=== PATIENT | female | born 1985 | race Caucasian/White ===

== ENCOUNTER → 2020-03-12 14:04 | Outpatient (CLI) | payer OTHER, MEDICAID, SELFPAY ==
[2020-03-12 14:33] LABS: Add Manual Diff / Slide Review NO; Basophils Absolute Auto 0 /uL (0-100); Basophils Percent Auto 0.5 % (0-2); Eosinophils Absolute Auto 200 /uL (0-450); Hematocrit 36.1 % (36-46); Hemoglobin 11.5 g/dL (12.0-16.0); Lymphocytes Absolute Auto 1900 /uL (1100-4500); Lymphocytes Percent Auto 23.1 % (25-40); Mean Corpuscular Hemoglobin 24.2 PG (26-34); Mean Corpuscular Volume 75.6 fL (80-100); Monocytes Absolute Auto 900 /uL (0-900); Monocytes Percent Auto 10.6 % (3-14); Neutrophils Absolute Auto 5200 /uL (1500-7000); Neutrophils Percent Auto 63.8 % (50-75); Platelet Count 253 X10^3/uL (150-400); Red Blood Cell Count 4.78 X10^6/uL (4.0-5.2); White Blood Cell Count 8.1 X10^3/uL (4.5-11.0)
[2020-03-12 15:26] LABS: Appearance Urine UA CLEAR; Bilirubin Urine UA NEGATIVE (NEGATIVE); Color Urine UA YELLOW; Glucose Urine UA TRACE g/dL (Negative); Ketones Urine UA NEGATIVE (NEGATIVE); Leukocyte Esterase Urine UA TRACE (NEGATIVE); Nitrite Urine UA NEGATIVE (Negative); Occult Blood Urine UA NEGATIVE (Negative); Protein Urine UA NEGATIVE (Negative)
[2020-03-12 15:51] LABS: pH Urine UA 7.5 (4.5-8.0)
[2020-03-12 15:52] LABS: RBC Urine None Seen (0-5/HPF)
[2020-03-12 15:53] LABS: Amorphous Sediment Urine 1+; Bacteria Urine Many (>30); Squamous Epithelial Cell Urine 5-10 /HPF (0-5/HPF); WBC Urine 1-5/HPF (0-5/HPF)
[2020-03-13 06:08] LABS: RPR Screen Non Reactive (Non Reactive)
[2020-03-13 15:48] LABS: Varicella IgG Antibody 576 index (Immune >165)
[2020-03-13 16:38] LABS: Hepatitis B Surface Antigen NEGATIVE s/c (NEGATIVE); Rubella Antibody IgG 67.1 IU/mL (>15)
[2020-03-13 16:55] LABS: HIV 1 & 2 Ab/Ag 4th Gen Combo NEGATIVE (NEGATIVE); Hep C Virus Ab w/Reflex Quant NEGATIVE s/c (NEGATIVE)
== END ==
PROVIDERS: PCP Family Medicine; Referring Provider Specialist; Visit Provider Specialist
DX: Z34.01 Encounter for supervision of normal first pregnancy, first trimester (principal)
CPT/HCPCS: 80055; 81003; 81015; 86787; 86803; 86850; 86900; 86901; 87086; 87389; 87491; 87591

== ENCOUNTER → 2020-03-27 14:50 | Outpatient (CLI) | payer OTHER, MEDICAID, SELFPAY | PROVIDERS: PCP Family Medicine; Referring Provider Specialist; Visit Provider Specialist | DX: O09.521 Supervision of elderly multigravida, first trimester (principal); Z3A.10 10 weeks gestation of pregnancy | CPT/HCPCS: 36415; 81420 ==

== ENCOUNTER → 2020-04-23 15:03 | Oncology outpatient (ONC) | payer OTHER, MEDICAID, SELFPAY ==
[2020-04-23 15:37] VITALS: BP 96/65; PULSE 73; RESP 16; TEMP 37; O2SAT 100
[2020-04-23] MEDS: LACTATED RINGERS 1,000 ML 1000 ML IV (15:44)
[2020-04-23] MEDS: ONDANSETRON 4 MG/2 ML INJ IV (15:45)
== END ==
LOC: ONC 15:04
PROVIDERS: PCP Family Medicine; Referring Provider Specialist; Visit Provider Specialist
DX: O21.0 Mild hyperemesis gravidarum (principal); O09.521 Supervision of elderly multigravida, first trimester
CPT/HCPCS: 96361; 96374; J2405

== ENCOUNTER → 2020-05-16 14:27 | Outpatient (CLI) | payer OTHER, MEDICAID, SELFPAY ==
[2020-05-16 16:06] LABS: HEMOLYSIS < 15 (0-50); Iron 82 ug/dL (37-170)
[2020-05-16 16:14] LABS: Transferrin 460 mg/dL (206-381)
[2020-05-16 16:20] LABS: Percent Iron Saturation 15 % (15-50); Total Iron Binding Capacity 539 ug/dL (265-497)
[2020-05-19 20:41] LABS: AFP, Serum 40.1 ng/mL (.); Calc Gestational Age Ultrasound (.); Estriol, Free 1.76 ng/mL (.); Inhibin A, Dimeric 122.64 pg/mL (.); Inhibin A, MoM 0.83 (.); Maternal Ethnicity Caucasian (.); Maternal Weight 175 lbs (.); Number of Fetuses No (.); OSBR Risk 1 IN 8933 (.); Results Report (.); Test Results *Screen Negative* (.); hCG, MoM 0.71 (.); hCG, Serum 19739 mIU/mL (.)
== END ==
PROVIDERS: PCP Family Medicine; Referring Provider Specialist; Visit Provider Specialist
DX: Z34.02 Encounter for supervision of normal first pregnancy, second trimester (principal); D64.9 Anemia, unspecified; Z3A.17 17 weeks gestation of pregnancy
CPT/HCPCS: 36415; 82105; 82677; 83540; 83550; 84702; 86336

== ENCOUNTER → 2020-06-03 10:37 | Outpatient (CLI) | payer OTHER, MEDICAID, SELFPAY ==
--- NOTE | 2020-06-03 10:38 | DI.US.S_ITS ---
PROCEDURE: US OB >= 14 WEEKS FETUS INDICATIONS: 20 week US OUTSIDE/PRIOR DATING DATA: Last menstrual period (LMP): January 15, 2020. LMP-based estimated date of delivery (MARLENE): October 21, 2020 . First dating scan (date and location): March 12, 2020 . Estimated date of delivery (MARLENE) from first dating scan: October 16, 2020 . TECHNIQUE: Real-time scanning was performed of the fetus, with image documentation and biometric measurements. Endovaginal scanning: Not performed COMPARISON: [facility], US, US OB >= 14 WEEKS FETUS, 05/16/2020, 14:16. FINDINGS: General: A single living intrauterine gestation is present. Presentation: Cephalic. Placenta: Placental position is posterior , without previa. Amniotic fluid index: 12.2 cm, normal range is 5-24 cm. Largest vertical pocket measured 3.6 cm. heart rate: 145 beats per minute. Maternal cervical canal: 5.1 cm long. Normal lower limit is 2.5 cm. biometrics: Biparietal diameter: 4.96 cm, correlating with 21 weeks and 0 days Head circumference: 18.2 cm, correlating with 20 weeks and 4 days Abdominal circumference: 15.5 cm, correlating with 20 weeks and 5 days Femur length: 3.92 cm, correlating with 22 weeks and 4 days Estimated gestational age from initial scan: 20 weeks and 5 days Composite gestational age from present scan: 21 weeks and 2 days Estimated weight and percentile: 426 g which correlates with the 84th percentile based off gestational age Measurement variability for biometric dating: +/- 7 days from 14 weeks to 15 weeks 6 days gestation, +/- 10 days from 16 weeks to 21 weeks 6 days gestation, +/- 2 weeks from 22 weeks to 27 weeks 6 days gestation, +/- 3 weeks for 28 weeks gestation or later. weight reference: 4500 g or EFW >90/95% is considered macrosomia or large for gestational age. EFW <10% is small for gestational age. EFW 5% or less is considered intra-uterine growth restriction. Anatomic survey: Neuro: Ventricles are non-dilated at less than 10 mm. Cisterna magna is normal at 3-11 mm. Cerebellum is normal in size and morphology. Nuchal skin fold: Normal at less than 6 mm between 14-21 weeks gestational age. Face: Nose and lips, facial profile are normal. Spine: No evidence for spina bifida. Heart: 4-chambered heart is present, with normal ventricular outflow tracts. Diaphragm: Diaphragm is intact. Stomach: Left-sided stomach is present. Kidneys: No hydronephrosis. Normal is less than 5 mm in 2nd trimester, less than 7 mm in 3rd trimester. Cord: 3-vessel cord has orthotopic insertion. Bladder: Normal in size. Extremities: All 4 extremities identified. IMPRESSION: 1. Single living intrauterine gestation with an estimated sonographic gestational age of approximately 21 weeks and 2 days. Estimated weight measured 426 g which [address] the fetus within the 84th percentile based off gestational age. 2. Unremarkable second-trimester anatomic screening survey. Dictated by: Kevin Hunt M.D. on 06/03/2020 at 17:52 Approved by: Kevin Hunt M.D. on 06/03/2020 at 17:56
== END ==
PROVIDERS: PCP Family Medicine; Referring Provider Specialist; Visit Provider Specialist
DX: Z34.02 Encounter for supervision of normal first pregnancy, second trimester (principal); Z3A.20 20 weeks gestation of pregnancy
CPT/HCPCS: 76811

== ENCOUNTER → 2020-07-03 12:29 | Outpatient (CLI) | payer OTHER, MEDICAID, SELFPAY ==
[2020-07-03 16:28] LABS: Urine N gonorrhoeae NOT DETECTED
[2020-07-03 16:30] LABS: Urine Chlamydia NOT DETECTED
== END ==
PROVIDERS: PCP Family Medicine; Visit Provider Specialist
DX: Z34.02 Encounter for supervision of normal first pregnancy, second trimester (principal); E03.9 Hypothyroidism, unspecified
CPT/HCPCS: 87491; 87591

== ENCOUNTER → 2020-07-28 13:43 | Outpatient (CLI) | payer OTHER, MEDICAID, SELFPAY ==
[2020-07-28 15:23] LABS: Hematocrit 34.7 % (36-46); Hemoglobin 11.4 g/dL (12.0-16.0)
[2020-07-28 15:34] LABS: GTT (PREG) 1 Hour PP 50gm Dose 181 mg/dL (76-139)
[2020-07-28 16:22] LABS: Free T4, Direct Thyroxine 1.07 ng/dL (0.78-2.19)
[2020-07-28 19:34] LABS: Thyroid Stimulating Hormone 0.234 uIU/mL (0.47-4.68)
== END ==
PROVIDERS: PCP Family Medicine; Referring Provider Specialist; Visit Provider Specialist
DX: Z34.02 Encounter for supervision of normal first pregnancy, second trimester (principal); E03.9 Hypothyroidism, unspecified
CPT/HCPCS: 36415; 82950; 84439; 84443; 85014; 85018

== ENCOUNTER 2020-09-17 15:12 | Emergency (ER) | payer OTHER, MEDICAID, SELFPAY ==
[2020-09-17] VITALS (7 sets, daily range): BP systolic 122–171; BP diastolic 77–106; PULSE 61–98; RESP 13–34; TEMP 36.4; O2SAT 97–100; BMI 29.7
[2020-09-17 16:12] LABS: Add Manual Diff / Slide Review NO; Basophils Absolute Auto 100 /uL (0-100); Basophils Percent Auto 0.7 % (0-2); Eosinophils Absolute Auto 0 /uL (0-450); Eosinophils Percent Auto 0.4 % (2-4); Hematocrit 40.9 % (36-46); Hemoglobin 13.5 g/dL (12.0-16.0); Lymphocytes Absolute Auto 1400 /uL (1100-4500); Lymphocytes Percent Auto 14.7 % (25-40); Mean Corpuscular Hemoglobin 27.1 PG (26-34); Mean Corpuscular Volume 82.2 fL (80-100); Monocytes Absolute Auto 600 /uL (0-900); Monocytes Percent Auto 6.3 % (3-14); Neutrophils Absolute Auto 7300 /uL (1500-7000); Neutrophils Percent Auto 77.9 % (50-75); Platelet Count 224 X10^3/uL (150-400); Red Blood Cell Count 4.97 X10^6/uL (4.0-5.2); Red Cell Distribution Width 15.7 % (11.6-14.8); White Blood Cell Count 9.4 X10^3/uL (4.5-11.0)
[2020-09-17 16:15] LABS: Alanine Aminotransferase 13 IU/L (<35); Albumin Globulin Ratio 1.1 (1.0-2.8); Alkaline Phosphatase 131 U/L (38-126); Aspartate Aminotransferase 25 IU/L (14-36); BUN Creatinine Ratio 12.1 (6-22); Bilirubin Total 0.9 mg/dL (0.2-1.3); Blood Urea Nitrogen 7 mg/dL (7-17); Calcium 9.6 mg/dL (8.4-10.2); Carbon Dioxide 19 mmol/L (22-32); Chloride 105 mmol/L (98-107); Estimated Glomerular Filt Rate > 60.0 mL/min (>60); Globulin 3.6 g/dL (1.7-4.1); Glucose 85 mg/dL (70-100); HEMOLYSIS < 15 (0-50); Lipase 98 U/L (23-300); Potassium 3.9 mmol/L (3.4-5.1); Sodium 134 mmol/L (137-145); Total Protein 7.6 g/dL (6.3-8.2)
[2020-09-17] MEDS: SODIUM CHLORIDE 0.9% 1,000 ML 1000 ML IV (16:28)
[2020-09-17] MEDS: ONDANSETRON 4 MG/2 ML INJ IV (16:40)
[2020-09-17 17:19] LABS: COVID19 - ADMIT (NP swab/PCR) Negative (Negative)
--- NOTE | 2020-09-17 17:32 | ED.ABDPAIN ---
HPI - Abdominal Pain General Chief Complaint: Abdominal Pain Stated Complaint: sent for fluids Time Seen by Provider: 09/17/20 16:01 Source: patient Mode of arrival: Wheelchair History of Present Illness HPI narrative: At 35 weeks with 48 hours of abdominal pain, cramping, vomiting and 24 hours of diarrhea. She is not complaining of uterine contractions, no vaginal discharge or fluid loss. She is noticing that he is quite active. She describes no fevers, cough, chills, chest pain. She has no headache and she is not describing symptoms consistent with orthostasis on arrival. Related Data Home Medications Medication Instructions Recorded Confirmed albuterol sulfate [Ventolin HFA] 2 puff INH PRN PRN #0 03/03/17 09/11/20 duloxetine 30 mg PO QDAY #0 03/03/17 09/11/20 levothyroxine 0.15 mg PO QAM #0 03/03/17 09/11/20 topiramate [Topamax] 100 mg PO QPM #0 03/03/17 09/11/20 valacyclovir 1,000 mg PO QDAY #0 03/03/17 09/11/20 prenat.vits,faye,qik-utvi-cbphs 1 tab PO DAILY 03/11/20 09/11/20 pyridoxine (vitamin B6) 25 mg 25 mg PO DAILY 03/11/20 09/11/20 tablet aripiprazole 2 mg tablet 2 mg PO DAILY 06/23/20 09/11/20 clonazepam 1 mg tablet 1 mg PO DAILY 06/23/20 09/11/20 escitalopram oxalate 10 mg tablet 10 mg PO DAILY 06/23/20 09/11/20 Previous Rx's Medication Instructions Recorded ondansetron [Zofran ODT] 4 mg SUBLINGUAL Q6HP PRN #20 odt 03/03/17 promethazine 25 mg rectal 25 mg CA Q4-6H PRN #12 each 03/12/20 suppository metoclopramide HCl 10 mg tablet 10 mg PO Q6H PRN #5 tab 03/29/20 sertraline 50 mg tablet 50 mg PO DAILY #30 tab 04/18/20 ondansetron 4 mg PO Q8H PRN #14 tab 09/17/20 Allergies Allergy/AdvReac Type Severity Reaction Status Date / Time No Known Drug Allergies Allergy Verified 09/17/20 15:26 Review of Systems Review of Systems Narrative: Otherwise unremarkable review of systems Patient History Medical History Anxiety (~2004) Bipolar 1 disorder (~2016) Conjunctivitis Corneal abrasion, left (~2017) Corneal abrasion, right (~2018) Depression (~2004) Exercise-induced asthma Ganglion cyst of dorsum of left wrist (~2012) Hypothyroid (~2001) Migraine (~2009) Pneumonia Pyelonephritis (~2014) Urinary tract infection (~2014) Vasovagal syncope (~2009) Surgical History History of adenoidectomy (~2001) History of back surgery (~2014) History of discectomy (~2014) History of placement of ear tubes (~1989) History of tympanoplasty of right ear (~2017) Hx of tonsillectomy (~2003) Family History Mother Cancer Stroke Father Depression Hypothyroid Bipolar 1 disorder Anxiety Grandmother Stroke Myocardial infarct Grandfather Congestive heart failure Grandmother Parkinson's disease Grandfather Congestive heart failure Cancer Brother Asthma Brother No problems noted. Social History marital status: unmarried,living together household members: significant other and family lives independently: Yes caregiver/support person: No housing: house pets and animals: Yes (3 dogs.) education level: college occupational status: employed current occupational exposures/hazards: No special jen needs: No leisure activities: exercise Smoking Status: Never smoker second hand exposure: No alcohol intake: former substance use type: marijuana Type(s) of exercise: bicycling Smoking Status: Never smoker alcohol intake frequency: holidays/special occasions only Substance Use Type: does not use Exam Narrative Exam Narrative: General: Healthy appearing, vomiting but Able to give a complete and coherent history. Well-nourished well-developed HEENT: Moist mucous membranes, normal sclera with reactive pupils, Respiratory: Lungs are clear to auscultation, no wheezing no rales no rhonchi. Full and symmetrical air movement Cardiac: Regular rate and rhythm no murmurs no bruits Abdomen: Soft, gravid, nontender, good bowel tones, no flank pain Skin: Warm and dry, no rashes Neurologic: Grossly neurologically intact with no obvious asymmetries or abnormalities Extremities: No trauma, well perfused Psych: Cooperative, appropriate insight and affect Pelvic exam: Cervix is soft, 50% effaced, dimple opening only. Bedside ultrasound: Vertex position, heart rate at 145, normal amounts of amniotic fluid for 35 weeks, active fetus Initial Vital Signs Initial Vital Signs: Vital Signs Temperature 97.5 F L 09/17/20 15:26 Pulse Rate 89 09/17/20 15:26 Respiratory Rate 15 09/17/20 15:26 Blood Pressure 131/100 H 09/17/20 15:26 Pulse Oximetry 98 09/17/20 15:26 Course Orders Ordered: ED Orders 09/17/20 16:04 Complete Blood Count AUTO DIFF Stat Comprehensive Metabolic Panel Stat Lipase Stat 09/17/20 16:19 COVID19 - ADMIT ([employer] swab/PCR) Stat Sodium Chloride (Normal Saline 0.9%) 1,000 mls @ 1,000 mls/hr IV BOLUS ONE Stop: 09/17/20 17:41 Last Admin: 09/17/20 16:43 Dose: Not Given Documented by: KAY Discontinued Medications Sodium Chloride (Normal Saline 0.9%) 1,000 mls @ 1,000 mls/hr IV BOLUS ONE Stop: 09/17/20 17:01 Last Admin: 09/17/20 16:28 Dose: 1,000 mls/hr Documented by: KAY Ondansetron HCl (Ondansetron 4 Mg/2 Ml Inj) 4 mg IV NOW ONE Stop: 09/17/20 16:31 Last Admin: 09/17/20 16:40 Dose: 4 mg Documented by: KAY Ondansetron HCl (Ondansetron 4 Mg/2 Ml Inj) 4 mg IV NOW ONE Stop: 09/17/20 16:43 Last Admin: 09/17/20 16:43 Dose: Not Given Documented by: KAY Vital Signs Vital signs: Vital Signs - 8 hr 09/17/20 15:26 Temperature 97.5 F L Pulse Rate 89 Respiratory Rate 15 Blood Pressure 131/100 H Pulse Oximetry 98 MDM - Abdominal Pain Medical Records Attestation: I reviewed the patient's medical records. Lab Data Attestation: I reviewed the patient's lab results. Result diagrams: 09/17/20 16:04 09/17/20 16:04 Labs: Lab Results 09/17/20 09/17/20 09/17/20 Range/Units 16:04 16:04 16:19 WBC 9.4 (4.5-11.0) X10^3/uL RBC 4.97 (4.0-5.2) X10^6/uL Hgb 13.5 (12.0-16.0) g/dL Hct 40.9 (36-46) % MCV 82.2 (80-100) fL MCH 27.1 (26-34) PG MCHC 33.0 (30-36) % RDW 15.7 H (11.6-14.8) % Plt Count 224 (150-400) X10^3/uL Neut % (Auto) 77.9 H (50-75) % Lymph % (Auto) 14.7 L (25-40) % [place] % (Auto) 6.3 (3-14) % Eos % (Auto) 0.4 L (2-4) % Baso % (Auto) 0.7 (0-2) % Neut # (Auto) 7300 H (6596-0404) /uL Lymph # (Auto) 1400 (6283-9370) /uL [place] # (Auto) 600 (0-900) /uL Eos # (Auto) 0 (0-450) /uL Baso # (Auto) 100 (0-100) /uL Sodium 134 L (137-145) mmol/L Potassium 3.9 (3.4-5.1) mmol/L Chloride 105 (98-107) mmol/L Carbon Dioxide 19 L (22-32) mmol/L BUN 7 (7-17) mg/dL Creatinine 0.58 (0.52-1.04) mg/dL Estimated GFR > 60.0 (>60) mL/min BUN/Creatinine Ratio 12.1 (6-22) Glucose 85 (70-100) mg/dL Calcium 9.6 (8.4-10.2) mg/dL Total Bilirubin 0.9 (0.2-1.3) mg/dL AST 25 (14-36) IU/L ALT 13 (<35) IU/L Alkaline Phosphatase 131 H (38-126) U/L Total Protein 7.6 (6.3-8.2) g/dL Albumin 4.0 (3.5-5.0) g/dL Globulin 3.6 (1.7-4.1) g/dL Albumin/Globulin Ratio 1.1 (1.0-2.8) Lipase 98 (23-300) U/L SARS-CoV-2 (PCR) Negative (Negative) Point of care testing: Urine Dip Bedside Urine Glucose Negative Bedside Urine Bilirubin - Negative Bedside Urine Ketone +++ 80 Urine Specific Delta 1.015 Bedside Urine Occult Blood - Negative Bedside Urine pH 8.5 Bedside Urine Protein - Negative Bedside Urine Urobilinogen - Negative Bedside Urine Nitrite - Negative Bedside Urine Leukocytes - Negative Esterase MDM Narrative Medical decision making narrative: Thirty-five week with vomiting and diarrhea. Healthy incidental with no signs of labor, preeclampsia, rupture of membranes or distress. Improved significantly with Zofran, IV fluids. Tolerating p.o. as without difficulty. Labs are reassuring. Care is reviewed with her OB provider, Dr. Rivera. Patient is safe for home discharge Discharge Plan Departure Patient Disposition: Home Clinical Impression: Nausea vomiting and diarrhea Qualifiers: Weeks of gestation: 35 weeks Qualified Code(s): Z3A.35 - 35 weeks gestation of Instructions: DI for Viral Gastroenteritis -- Adult Activity Restrictions/Additional Instructions: Thank you for coming in this evening Your lab work was very reassuring. Your baby looks like it is quite healthy. You are not in labor. You were dehydrated. I suspect that you have a mild viral gastroenteritis. You do not have COVID. The most important thing for you is to be able to maintain your hydration status. Zofran we gave you in the emergency department seem to work very well. I will give you a prescription of this to fill and use if you have additional episodes of nausea. If you find that you are getting worse, please feel free to return to the emergency department Prescriptions: New ondansetron 4 mg tablet,disintegrating 4 mg PO Q8H PRN (Reason: nausea and vomiting) Qty: 14 RF: 0 No Action valacyclovir 1,000 MG tablet 1,000 mg PO QDAY Qty: 0 RF: 0 Hold Instructions: duloxetine 30 MG capsule,delayed release(DR/EC) 30 mg PO QDAY Qty: 0 RF: 0 Hold Instructions: not taking currently levothyroxine 150 MCG tablet 0.15 mg PO QAM Qty: 0 RF: 0 topiramate [Topamax] 100 MG tablet 100 mg PO QPM Qty: 0 RF: 0 Hold Instructions: albuterol sulfate [Ventolin HFA] 90 MCG/PUFF HFA aerosol inhaler 2 puff INH PRN PRNQty: 0 RF: 0 ondansetron [Zofran ODT] 4 MG tablet,disintegrating 4 mg Sublingual Q6HP PRNQty: 20 RF: 0 metoclopramide HCl 10 mg tablet 10 mg PO Q6H PRN (Reason: nausea and vomiting) Qty: 5 RF: 0 clonazepam 1 mg tablet 1 mg PO DAILY RF: 0 aripiprazole [Abilify] 2 mg tablet 2 mg PO DAILY RF: 0 escitalopram oxalate [Lexapro] 10 mg tablet 10 mg PO DAILY RF: 0 promethazine 25 mg suppository 25 mg CA Q4-6H PRN (Reason: nausea and vomiting) Qty: 12 RF: 3 prenat.vits,faye,jst-zblc-adsvu Tablet 1 tab PO DAILY RF: 0 pyridoxine (vitamin B6) 25 mg tablet 25 mg PO DAILY RF: 0 sertraline 50 mg tablet 50 mg PO DAILY Qty: 30 RF: 3 Referrals: Roman Lopez MD [Primary Care Provider] -
[2020-09-17] MEDS: ONDANSETRON 4 MG ODT PREPACK 1 BOTTLE MISC (18:19)
== END 2020-09-17 18:25 | disposition home or self-care (01) ==
PROVIDERS: Emergency Medicine; Emergency Provider Emergency Medicine; PCP Family Medicine; Referring Provider Specialist
DX: R11.2 Nausea with vomiting, unspecified (principal); R19.7 Diarrhea, unspecified
CPT/HCPCS: 36415; 80053; 81003; 83690; 85025; 87635; 96361; 96374; 99284; C9803; J2405

== ENCOUNTER 2020-09-20 11:57 | Inpatient (IN) | payer OTHER, MEDICAID, SELFPAY ==
[2020-09-20 12:58] VITALS: BP 130/92
--- NOTE | 2020-09-20 13:39 | P.HPOB_ITS ---
OB HPI Date/Time Date of admission: 09/20/20 Date Patient Seen: 09/20/20 Time Patient Seen: 12:30 History of Present Condition Chief complaint: : 1 Para: 0 Estimated Date of Delivery: 10/21/20 Estimated Gestational Age (weeks): 35+4 Narrative: Kathie Delgado is a 34 year old female 1 para 0 at 35-,4/7 weeks gestation with spontaneous rupture membranes at 9:15 a.m.. Occasional contractions. Clear amniotic fluid. History of Present care: good care, initiated at week # (6), number of visits (9) and pounds weight gain (24) Dating criteria: LMP confirmed by 1st trimester US Ultrasounds: normal 1st trimester US and normal mid trimester US Obstetrical complications: none Medical complications: none Preadmission Labs Blood type: O (+) positive -: Antibody screen: negative, GBS status: unknown, HBsAG: negative, HIV: negative and RPR/VDLR: negative -: Chlamydia screen: not detected and Gonorrhea screen: not detected -: Rubella: immune and Varicella: immune HCT: 40.9 HCAB: negative Quad screen: Normal Cell-free DNA: Normal Urine: Negative 1 hr GTT: 181 Narrative: No 3 hr GTT Evaluation Evaluation Baseline heart rate: 125 Variability: Moderate (11-25) monitor accelerations: Present monitor decelerations: Absent Contraction Frequency (minutes): 5 Uterine Contraction Intensity: Mild Status: Category l Cervical dilation (cm): 1 Cervical effacement (%): 25 station: -3 Non-invasive Membranes Rupture Test: positive [facility] Medical History Anxiety (~2004) Bipolar 1 disorder (~2016) Conjunctivitis Corneal abrasion, left (~2017) Corneal abrasion, right (~2017) Depression (~2004) Exercise-induced asthma Ganglion cyst of dorsum of left wrist (~2012) Hypothyroid (~2001) Migraine (~2009) Pneumonia Pyelonephritis (~2014) Urinary tract infection (~2014) Vasovagal syncope (~2009) Surgical History History of adenoidectomy (~2001) History of back surgery (~2014) History of discectomy (~2014) History of placement of ear tubes (~1989) History of tympanoplasty of right ear (~2017) Hx of tonsillectomy (~2003) Family History Mother Cancer Stroke Father Depression Hypothyroid Bipolar 1 disorder Anxiety Grandmother Stroke Myocardial infarct Grandfather Congestive heart failure Grandmother Parkinson's disease Grandfather Congestive heart failure Cancer Brother Asthma Brother No problems noted. Social History marital status: unmarried,living together household members: significant other and family lives independently: Yes caregiver/support person: No housing: house pets and animals: Yes (3 dogs.) education level: college occupational status: employed current occupational exposures/hazards: No special jen needs: No leisure activities: exercise Smoking Status: Never smoker second hand exposure: No alcohol intake: former substance use type: marijuana Type(s) of exercise: bicycling Meds Home Medications and Allergies Home Medications Medication Instructions Recorded Confirmed Type levothyroxine 0.15 mg PO QAM #0 03/03/17 09/20/20 History prenat.vits,faye,fkp-ifxw-seblh 1 tab PO DAILY 03/11/20 09/20/20 History clonazepam 1 mg tablet 1 mg PO DAILY 06/23/20 09/20/20 History escitalopram oxalate 10 mg tablet 10 mg PO DAILY 06/23/20 09/20/20 History Allergies Allergy/AdvReac Type Severity Reaction Status Date / Time No Known Drug Allergies Allergy Verified 09/17/20 15:26 Exam Vital Signs (past 8 hours): - 09/20/20 12:58 Blood Pressure 130/92 H Narrative Exam Narrative: Generally: A well-developed, well-nourished female, no acute distress Lungs: Clear to auscultation bilaterally Cardiovascular: Regular rate and rhythm Fundal height: 35 cm Estimated weight: 5 1/2 to 6 lb Extremities: Negative Homans Assessment and Plan Assessment and Plan Assessment and Plan narrative: Assessment: 34-year-old 1 para 0 at 35-,4/7 weeks gestation with premature rupture of membranes No regular contraction Unknown group B strep status Elevated 1 hour glucose test Plan: For Pitocin as needed Possible use of Cytotec if contractions significantly peter out Pediatrics notified Group B strep obtained Antibiotics as needed Expected management Time Spent with Patient Total time spent with greater than 50% in coordination of care (as documented) at patient's floor/unit and/or counseling patient:: 15-24 minutes
[2020-09-20 14:01] LABS: Add Manual Diff / Slide Review NO; Basophils Absolute Auto 100 /uL (0-100); Basophils Percent Auto 0.9 % (0-2); Eosinophils Absolute Auto 200 /uL (0-450); Eosinophils Percent Auto 2.2 % (2-4); Hematocrit 35.1 % (36-46); Hemoglobin 11.5 g/dL (12.0-16.0); Lymphocytes Absolute Auto 1800 /uL (1100-4500); Lymphocytes Percent Auto 24.9 % (25-40); Mean Corpuscular HGB Conc 32.7 % (30-36); Mean Corpuscular Volume 82.5 fL (80-100); Monocytes Absolute Auto 600 /uL (0-900); Monocytes Percent Auto 8.7 % (3-14); Neutrophils Absolute Auto 4600 /uL (1500-7000); Neutrophils Percent Auto 63.3 % (50-75); Platelet Count 216 X10^3/uL (150-400); Red Blood Cell Count 4.26 X10^6/uL (4.0-5.2); Red Cell Distribution Width 15.4 % (11.6-14.8); White Blood Cell Count 7.3 X10^3/uL (4.5-11.0)
[2020-09-20] MEDS: CEFAZOLIN 2 GM/100 ML FROZ.PIGGY IV ×2 (15:46→23:45)
[2020-09-20] MEDS: LACTATED RINGERS 1,000 ML 100 ML IV ×2 (15:46→22:35)
[2020-09-20 16:38] LABS: Strep Grp B PCR NEG for Grp B Strep
[2020-09-20] MEDS: ONDANSETRON 4 MG/2 ML INJ IV ×2 (20:20→23:45)
[2020-09-20] MEDS: OXYTOCIN PREMIX 30 UNIT/500 ML PLAST..BAG 200 UNIT IV (20:22)
--- NOTE | 2020-09-20 20:45 | PM.OBPNLAB ---
Date/Time Date Patient Seen: 09/20/20 Time Patient Seen: 20:45 Pain Control Pain control: tolerating well Pelvic Exam Dilation (cm): 1 Effacement (%): 25 station: -3 Comments: No new cervical check Contractions Monitor mode: External Pitocin rate (mU/min): 1 Contraction frequency (min): 4 Contraction duration (min): 1 Contraction pattern: Regular Contraction intensity: Moderate Status status: Category l Heart Rate Baseline: 130 Monitor Accelerations: Present Monitor Decelerations: Absent Monitor Variability: Moderate Assessment and Plan Assessment: other Plan: continuous present management
--- NOTE | 2020-09-21 03:53 | P.PCN_ITS ---
Regional Block Pre-procedure Procedure: Continuous Lumbar Epidural for L&D Attending OB provider: Mariel Amaral PMH/ROS narrative: term labor, no complications. PMH anxiety depression, hypothyroid Hx: No personal or family history of anesthesia problems. ASA Class: II Labs: Hct 35.1 % (36-46) L 09/20/20 13:50 Plt Count 216 X10^3/uL (150-400) 09/20/20 13:50 Medications: Current Medications Generic Name Dose Route Start Last Admin Trade Name Freq PRN Reason Stop Dose Admin Calcium Carbonate 500 mg 09/20/20 12:32 Calcium Carbonate 500 Mg Tab PO Q2HR PRN Dyspepsia Carboprost Tromethamine 250 mcg 09/20/20 12:32 Carboprost 250 Mcg/Ml Ampul IM Q90M PRN Bleeding Diphenhydramine HCl 25 mg 09/21/20 03:43 Diphenhydramine 50 Mg/Ml Vial IV Q10M PRN Pruritis Fentanyl 50 mcg 09/20/20 12:32 Fentanyl 100 Mcg/2 Ml Inj IV Q1H PRN Pain, Moderate (4-6) Lactated Ringer's 1,000 mls @ 100 mls/hr 09/20/20 12:45 09/20/20 22:35 Lactated Ringers IV 100 mls/hr CONT JOSE D Administration Oxytocin/Lactated Ringer's 30 unit in 500 mls @ 200 mls/hr 09/20/20 12:32 09/20/20 20:22 Oxytocin Premix IV 200 mls/hr CONT PRN Administration Bleeding Protocol Tranexamic Acid 1,000 mg/ 100 mls @ 400 mls/hr 09/20/20 12:32 Sodium Chloride IV NOW PRN Bleeding FENT 2MCG/ML BUPIV 0.125% EPI 200 mcg in 100 mls @ 6 mls/hr 09/21/20 03:45 Fentanyl/Bupiv/Ns 2mcg/Ml - 0.125% EPIDURAL CONT JOSE D Methylergonovine Maleate 0.2 mg 09/20/20 12:32 Methylergonovine 0.2 Mg Tablet PO Q6HR PRN Heavy Bleeding Methylergonovine Maleate 0.2 mg 09/20/20 12:32 Methylergonovine 0.2 Mg/Ml Vial IM NOW PRN Bleeding Metoclopramide HCl 10 mg 09/20/20 12:32 Metoclopramide 10 Mg/2 Ml Inj IV NOW PRN Nausea And Vomiting Misoprostol 800 mcg 09/20/20 12:32 Misoprostol [address] NOW PRN Bleeding Misoprostol 1,000 mcg 09/20/20 12:32 Misoprostol [address] NOW PRN Bleeding Misoprostol 400 mcg 09/20/20 12:32 Misoprostol 200 Mcg Tablet SL NOW PRN Bleeding Naloxone HCl 0.2 mg 09/20/20 12:32 Naloxone 0.4 Mg/Ml Vial IV Q2MIN PRN Opiate Reversal Ondansetron HCl 4 mg 09/20/20 12:32 09/20/20 23:45 Ondansetron 4 Mg/2 Ml Inj IV 4 mg Q4HR PRN Administration Nausea And Vomiting Oxytocin 10 unit 09/20/20 12:32 Oxytocin 10 Unit/Ml Vial IM NOW PRN Bleeding Allergies: Allergies Allergy/AdvReac Type Severity Reaction Status Date / Time No Known Drug Allergies Allergy Verified 09/17/20 15:26 Procedure Insertion date: 09/21/20 Insertion time: 03:40 Prep/Local: betadine x3 Interspace: L3-4 Patient position: sitting Needle: 18 gauge [employer] (CSE: 27g Pencan through [employer], clear CSF, 1mL 0.25% bupiv) KRISTOPHER at (cm): 5 Catheter placed at SKIN (cm): 10 Catheter in SPACE (cm): 5 Insertion: No CSF, No Blood, No Paresthesia with insertion, No Paresthesia with injection and No Test dose reaction Initial Medications TEST DOSE time: 03:36 TEST DOSE: 1.5% lidocaine with epinephrine 1:200k (mL): 3 BOLUS DOSE time: 03:53 BOLUS DOSE (mL): 3 BOLUS DOSE med: other (infusate) Infusion INFUSION: 0.125% bupivacaine Initial rate (mL/hr): 6 Subsequent interventions: 50mcg fentanyl and 5mL 2% chloroprocaine at 11:20 Post-procedure Anesthesia time START: 03:25 Anesthesia time END: 12:04 Post-procedure Anesthesia Assessment: Yes CV function: HR/BP stable, Yes Resp function: RR/sat/airway adequate, Yes Post-op hydration adequate, Yes Pain control adequate, Yes Nausea & vomiting absent, Yes Mental status appropriate and No Anesthesia complications
[2020-09-21] MEDS: LACTATED RINGERS 1,000 ML 100 ML IV (04:08)
--- NOTE | 2020-09-21 11:10 | PM.OBPNLAB ---
Date/Time Date Patient Seen: 09/21/20 Time Patient Seen: 10:30 Pain Control Pain control: epidural Pelvic Exam Dilation (cm): 6 Effacement (%): 100 station: +1 Amniotic membrane status: Ruptured Contractions Contractions on admission: irregular Monitor mode: External Contraction frequency (min): 4 Contraction pattern: Regular Contraction intensity: Strong/Firm Status status: Category l Heart Rate Baseline: 115 Monitor Accelerations: Present Monitor Decelerations: Variable Monitor Variability: Moderate Assessment and Plan Assessment: active labor Plan: continuous present management Comments: Peanut ball and side to side
--- NOTE | 2020-09-21 11:12 | PM.OBPNLAB ---
Date/Time Date Patient Seen: 09/21/20 Time Patient Seen: 11:12 Pain Control Pain control: epidural Comments: Feeling a lot of rectal pressure Pelvic Exam Dilation (cm): 8 Effacement (%): 100 station: +2 Amniotic membrane status: Ruptured Contractions Monitor mode: External Contraction frequency (min): 3 Contraction duration (min): 1 Contraction pattern: Regular Contraction intensity: Strong/Firm Status status: Category l Heart Rate Baseline: 115 Monitor Accelerations: Present Monitor Decelerations: Variable Monitor Variability: Moderate Assessment and Plan Assessment: active labor Plan: continuous present management Comments: Expectant management to . Peds notified
--- NOTE | 2020-09-21 12:54 | P.PCNOB_ITS ---
Events: Labor < 37 wks and Premature Rupture Membrane Labor & Delivery Delivery date: 09/21/20 Cervical ripening method: none Induction method: none Delivery augmentation: pitocin Delivery monitor: external FHT and external uterine Route of delivery: Episiotomy description: None L&D Laceration Description: Perineal - 2nd Degree, Vaginal - 2nd Degree and Superficial (Left labial) Delivery repair: vicryl and chromic Estimated blood loss (mL): 200 Anesthesia Type: Epidural Complications: None Narrative: Patient complete and pushed for 20 minutes. At 12:04 p.m., a live male infant delivered spontaneously in the G[place] presentation. A loose nuchal cord x1 was reduced on the perineum. The remainder of the body delivered without difficulty and was placed on mom's abdomen. After 1 minutes, the cord was double clamped and cut. The was handed off to waiting RT and Peds. Cord bloods were obtained. Pitocin was given in the IV fluids. The placenta delivered intact with a three-vessel cord at 12: 15 p.m. The placenta was very calcified. The fundus was massaged to firm. The perineum and vagina were inspected and there was a second-degree vaginal/perineal laceration. There was also a superficial left labial laceration. These were repaired in the usual fashion. Hemostasis was achieved. 20 cc of local anesthetic were also nec essary for the repair. Epidural analgesia. . Apgars 7 at 1 minute 8 at 5 minute 9 at 10 minutes. Mom and infant are stable to recovery. Baby 1: Infant gender: Male Presentation: vertex Position: Left Occiput Anterior Placenta delivery description: Spontaneous and Normal Configuration Cord Vessel Description: 3 Vessels, Nuchal Cord, Loose and Reduced score (1 min): 7 score (5 min): 8 score (10 min): 9 weight: 5 lb Plan for aftercare: Routine care
[2020-09-21] MEDS: DERMOPLAST SPRAY 20% 60 ML 1 SPRAY TOP (13:50)
[2020-09-21] MEDS: IBUPROFEN 600 MG TABLET PO ×2 (13:50→20:30)
[2020-09-21] MEDS: ACETAMINOPHEN 325 MG TABLET 650 MG PO (20:30)
[2020-09-22] MEDS: IBUPROFEN 600 MG TABLET PO ×4 (02:29→21:26)
[2020-09-22] MEDS: ACETAMINOPHEN 325 MG TABLET 650 MG PO ×4 (02:29→21:25)
[2020-09-22 06:06] LABS: Add Manual Diff / Slide Review NO; Basophils Absolute Auto 100 /uL (0-100); Basophils Percent Auto 1.3 % (0-2); Eosinophils Absolute Auto 200 /uL (0-450); Eosinophils Percent Auto 1.4 % (2-4); Hemoglobin 10.4 g/dL (12.0-16.0); Lymphocytes Absolute Auto 2300 /uL (1100-4500); Lymphocytes Percent Auto 19.9 % (25-40); Mean Corpuscular HGB Conc 32.4 % (30-36); Mean Corpuscular Hemoglobin 26.7 PG (26-34); Mean Corpuscular Volume 82.5 fL (80-100); Monocytes Absolute Auto 1000 /uL (0-900); Monocytes Percent Auto 8.7 % (3-14); Neutrophils Absolute Auto 8000 /uL (1500-7000); Neutrophils Percent Auto 68.7 % (50-75); Platelet Count 168 X10^3/uL (150-400); Red Blood Cell Count 3.88 X10^6/uL (4.0-5.2); Red Cell Distribution Width 15.6 % (11.6-14.8); White Blood Cell Count 11.6 X10^3/uL (4.5-11.0)
[2020-09-22] MEDS: PRENATAL VIT,CALC/IRON/FOLIC 1 TABLET 1 TAB PO (08:36)
[2020-09-22] MEDS: DOCUSATE 100 MG CAPSULE PO (08:36)
[2020-09-22] MEDS: LEVOTHYROXINE 150 MCG TABLET PO (11:05)
[2020-09-22] MEDS: ESCITALOPRAM 10 MG TABLET PO (11:05)
[2020-09-22] MEDS: hydrOXYzine pamoate 25 MG CAPSULE PO ×2 (11:05→18:55)
--- NOTE | 2020-09-22 21:52 | PM.OBPN.1 ---
Subjective - OB Subjective Patient comments: other (Feeling very anxious) [place] baby status: doing well feeding status: breast and bottle feeding Date Patient Seen: 09/22/20 Time Patient Seen: 10:30 Interval history: Pt c/o feeling extremely anxious today. Exam Vital Signs (past 8 hours): Generally: Pt sitting up in bed, bottlefeeding the baby Fundus: Firm U/-3 Ext: Negative Ameya's, trace edema Objective Labs Result Diagrams: 09/22/20 05:55 Labs: Laboratory Results - last 24 hr 09/22/20 05:55 WBC 11.6 H D RBC 3.88 L Hgb 10.4 L Hct 32.0 L MCV 82.5 MCH 26.7 MCHC 32.4 RDW 15.6 H Plt Count 168 Neut % (Auto) 68.7 Lymph % (Auto) 19.9 L [place] % (Auto) 8.7 Eos % (Auto) 1.4 L Baso % (Auto) 1.3 Neut # (Auto) 8000 H Lymph # (Auto) 2300 [place] # (Auto) 1000 H Eos # (Auto) 200 Baso # (Auto) 100 Assessment & Plan Plan plan OB: routine care Comments: Add Hydroxyzine for anxiety Anticipate discharge tomorrow Time Spent With Patient Time: Total time spent is greater than 50% in coordination of care (as documented) at patient's floor/unit and/or counseling patient: Time with patient: 15-24 minutes
[2020-09-23] MEDS: hydrOXYzine pamoate 25 MG CAPSULE PO ×2 (01:00→14:16)
[2020-09-23] MEDS: IBUPROFEN 600 MG TABLET PO ×2 (03:30→11:20)
[2020-09-23] MEDS: ACETAMINOPHEN 325 MG TABLET 650 MG PO ×2 (03:30→11:20)
[2020-09-23] MEDS: DERMOPLAST SPRAY 20% 60 ML 1 SPRAY TOP (03:36)
[2020-09-23] MEDS: DOCUSATE 100 MG CAPSULE PO (07:45)
[2020-09-23] MEDS: ESCITALOPRAM 10 MG TABLET PO (07:46)
[2020-09-23] MEDS: LEVOTHYROXINE 150 MCG TABLET PO (07:46)
[2020-09-23] MEDS: PRENATAL VIT,CALC/IRON/FOLIC 1 TABLET 1 TAB PO (07:46)
[2020-09-23 15:42] VITALS: BP 139/87; PULSE 67; RESP 18; TEMP 36.9
--- NOTE | 2020-09-23 17:46 | P.DS_ITS ---
Discharge Providers Provider Date of admission: 09/20/20 11:57 Discharge Date: 09/23/20 Primary care physician: Roman Lopez MD Consults: 09/20/20 12:36 Consult to Anesthesiology Urgent Comment: Consulting Provider: Anesthesiologist Reason for consultation: epidural Has provider been notified: Yes 09/22/20 12:51 Consult to Bag Sewer Routine Comment: Discharge provider: Mariel Amaral MD Summary Hospital Course Date Patient Seen: 09/23/20 Time Patient Seen: 12:15 Diagnoses: 35-5/7 weeks gestation Pre term, premature rupture membranes Augmentation of labor with Pitocin Spontaneous vaginal delivery Second-degree laceration and repair Hospital Course: Patient is a 34-year-old 1 para 1 who presented on September 20, 2020 with spontaneous rupture membranes with clear fluid at 9:15 a.m. in the morning. She was flown off of [facility]. A group B strep was obtained. She was started on IV antibiotics. She was originally uy on her own. The contractions then petered out and Pitocin augmentation was started. She received an epidural for pain management. She progressed to complete dilation and had a spontaneous vaginal delivery. Her course was complicated by some blood sugar and feeding issues with the baby and anxiety in the mom. She was started on hydroxyzine for management of the anxiety. She was restarted on her antidepressant. She is discharged home on day # 2. Peripartum Data Infant Delivery Method: Natural Vaginal Laceration Description: Perineal - 2nd Degree, Vaginal - 2nd Degree and Superficial (Left labial) Episiotomy description: None Procedures: Pitocin augmentation of labor IV antibiotics Epidural analgesia Spontaneous vaginal delivery Second-degree laceration and repair complications: none [place] 1: Gender: Male Disposition of : other (Still in the hospital) Status at Discharge Cognitive/behavioral status at discharge: oriented Functional status at discharge: independent ambulation Overall status at discharge: patient is progressing back to baseline Time Spent with Patient Time attestation: Total time spent providing and/or coordinating discharge services: Time spent: Less than 30 minutes Objective Labs Result Diagrams: 09/22/20 05:55 Exam Vital Signs (past 8 hours): - 09/23/20 15:42 Temperature 98.4 F Pulse Rate 67 Respiratory Rate 18 Blood Pressure 139/87 Narrative Exam Narrative: Generally: Patient is sitting up in bed, no acute distress Fundus: Firm at U -2 Extremities: Trace edema, negative Homans Discharge Plan Discharge Plan Patient Disposition: Home Provider Discharge Comment: Call with fever, chills, or bleeding vaginally more than a pad an hour Ibuprofen 600 mg every 6 hours as needed Discharge orders & Medications Prescriptions: New hydroxyzine HCl 25 mg tablet 25 mg PO BID PRN (Reason: anxiety) Qty: 20 RF: 3 ibuprofen 600 mg tablet 600 mg PO Q6H PRN (Reason: cramping) Qty: 20 RF: 2 Continued levothyroxine 150 MCG tablet 0.15 mg PO QAM Qty: 0 RF: 0 escitalopram oxalate [Lexapro] 10 mg tablet 10 mg PO DAILY RF: 0 prenat.vits,faye,[id number] Tablet 1 tab PO DAILY RF: 0 Discontinued clonazepam 1 mg tablet 1 mg PO DAILY RF: 0 Follow up/Referrals: Thais Rivera MD [Physician] - 6 Weeks (Please follow up with Dr. Amaral on 10/29/2020 at 2:00 at the [facility]. ) Roman Lopez MD [Primary Care Provider] - Diet/Activity/Treatments Diet: Regular Activity: No intercourse until 6 week visit Skin/Wound/Dressing Care Report to your healthcare provider any signs of infection, such as:: chills, fever, increased pain and unusual drainage Visit Report/Discharge Packet Instructions: DI for Labor and Delivery, Vaginal Stand Alone Forms: Discharge: Care Discharge Data Primary Care Provider: Roman Lopez
== END 2020-09-23 16:13 | disposition home or self-care (01) | DRG 560 ==
PROVIDERS: Admitting Provider Obstetrics & Gynecology; PCP Family Medicine; Referring Provider Obstetrics & Gynecology; Visit Provider Obstetrics & Gynecology
DX: O42.02 Full-term premature rupture of membranes, onset of labor within 24 hours of rupture (principal); O99.344 Other mental disorders complicating childbirth; F41.9 Anxiety disorder, unspecified; Z3A.37 37 weeks gestation of pregnancy; Z37.0 Single live birth; O70.1 Second degree perineal laceration during delivery; O69.81X0 Labor and delivery complicated by cord around neck, without compression, not applicable or unspecified; O99.284 Endocrine, nutritional and metabolic diseases complicating childbirth; E03.9 Hypothyroidism, unspecified; O99.824 Streptococcus B carrier state complicating childbirth; Z20.822 Contact with and (suspected) exposure to COVID-19
CPT/HCPCS: 01967; 36415; 59050; 59409; 85025; 86850; 86900; 86901; 87653; G0379; J0690; J2405; J2590

== ENCOUNTER → 2021-03-11 12:19 | Outpatient (CLI) | payer OTHER, MEDICAID, SELFPAY ==
[2021-03-11 19:20] LABS: Alanine Aminotransferase 31 IU/L (<35); Albumin 4.3 g/dL (3.5-5.0); Albumin Globulin Ratio 1.5 (1.0-2.8); Alkaline Phosphatase 117 U/L (38-126); Aspartate Aminotransferase 33 IU/L (14-36); BUN Creatinine Ratio 21.3 (6-22); Bilirubin Total 0.7 mg/dL (0.2-1.3); Blood Urea Nitrogen 13 mg/dL (7-17); Calcium 10.1 mg/dL (8.4-10.2); Carbon Dioxide 27 mmol/L (22-32); Chloride 105 mmol/L (98-107); Estimated Glomerular Filt Rate > 60.0 mL/min (>60); Globulin 2.8 g/dL (1.7-4.1); Glucose 81 mg/dL (70-100); HEMOLYSIS < 15 (0-50); Potassium 4.4 mmol/L (3.4-5.1); Sodium 141 mmol/L (137-145); Total Protein 7.1 g/dL (6.3-8.2)
[2021-03-11 19:49] LABS: TSH w/ Reflex to FT4 < 0.02 uIU/mL (0.47-4.68)
== END ==
PROVIDERS: PCP Family Medicine; Visit Provider Physician Assistant
DX: E05.90 Thyrotoxicosis, unspecified without thyrotoxic crisis or storm (principal); Z79.899 Other long term (current) drug therapy
CPT/HCPCS: 80053; 84439; 84443

== ENCOUNTER → 2021-05-28 13:14 | Outpatient (CLI) | payer OTHER, MEDICAID, SELFPAY ==
[2021-05-28 20:07] LABS: TSH w/ Reflex to FT4 5.61 uIU/mL (0.47-4.68)
[2021-05-28 20:55] LABS: Free T4, Direct Thyroxine 0.66 ng/dL (0.78-2.19)
== END ==
PROVIDERS: PCP Family Medicine; Visit Provider Physician Assistant
DX: E03.9 Hypothyroidism, unspecified (principal)
CPT/HCPCS: 84439; 84443

== ENCOUNTER → 2021-06-24 08:36 | Outpatient (CLI) | payer OTHER, MEDICAID, SELFPAY ==
[2021-06-24 20:00] LABS: COVID19 - ORCAS (NP or Nasal) Negative (Negative)
== END ==
PROVIDERS: PCP Physician Assistant; Visit Provider Physician Assistant
DX: Z20.822 Contact with and (suspected) exposure to COVID-19 (principal); R05.9 Cough, unspecified
CPT/HCPCS: C9803; U0003

== ENCOUNTER → 2021-07-01 13:31 | Outpatient (CLI) | payer OTHER, MEDICAID, SELFPAY ==
[2021-07-01 19:00] LABS: Alanine Aminotransferase 17 IU/L (<35); Albumin 4.4 g/dL (3.5-5.0); Albumin Globulin Ratio 1.5 (1.0-2.8); Alkaline Phosphatase 106 U/L (38-126); Aspartate Aminotransferase 25 IU/L (14-36); BUN Creatinine Ratio 12.5 (6-22); Bilirubin Total 0.9 mg/dL (0.2-1.3); Blood Urea Nitrogen 10 mg/dL (7-17); Calcium 9.6 mg/dL (8.4-10.2); Carbon Dioxide 29 mmol/L (22-32); Chloride 103 mmol/L (98-107); Estimated Glomerular Filt Rate > 60.0 mL/min (>60); Globulin 2.9 g/dL (1.7-4.1); Glucose 95 mg/dL (70-100); HEMOLYSIS < 15 (0-50); Potassium 4.3 mmol/L (3.4-5.1); Sodium 139 mmol/L (137-145); Total Protein 7.3 g/dL (6.3-8.2)
[2021-07-01 19:27] LABS: TSH w/ Reflex to FT4 0.17 uIU/mL (0.47-4.68)
[2021-07-01 20:05] LABS: Free T4, Direct Thyroxine 1.03 ng/dL (0.78-2.19)
== END ==
PROVIDERS: PCP Physician Assistant; Referring Provider Physician Assistant; Visit Provider Physician Assistant
DX: D64.9 Anemia, unspecified (principal); E03.9 Hypothyroidism, unspecified; R53.83 Other fatigue
CPT/HCPCS: 80053; 84439; 84443

== ENCOUNTER → 2021-07-31 12:07 | Outpatient (CLI) | payer OTHER, MEDICAID, SELFPAY ==
[2021-07-31 19:39] LABS: Add Manual Diff / Slide Review NO; Basophils Absolute Auto 100 /uL (0-100); Eosinophils Absolute Auto 600 /uL (0-450); Eosinophils Percent Auto 10.9 % (2-4); Hematocrit 40.9 % (36-46); Hemoglobin 13.6 g/dL (12.0-16.0); Lymphocytes Absolute Auto 1400 /uL (1100-4500); Lymphocytes Percent Auto 26.2 % (25-40); Mean Corpuscular HGB Conc 33.2 % (30-36); Mean Corpuscular Hemoglobin 29.6 PG (26-34); Mean Corpuscular Volume 89.3 fL (80-100); Monocytes Absolute Auto 500 /uL (0-900); Monocytes Percent Auto 9.4 % (3-14); Neutrophils Absolute Auto 2800 /uL (1500-7000); Neutrophils Percent Auto 52.5 % (50-75); Platelet Count 286 X10^3/uL (150-400); Red Blood Cell Count 4.58 X10^6/uL (4.0-5.2); Red Cell Distribution Width 12.8 % (11.6-14.8); White Blood Cell Count 5.3 X10^3/uL (4.5-11.0)
== END ==
PROVIDERS: PCP Physician Assistant; Referring Provider Physician Assistant; Visit Provider Physician Assistant
DX: D64.9 Anemia, unspecified (principal); R53.83 Other fatigue
CPT/HCPCS: 85025

== ENCOUNTER 2021-08-03 14:37 | Emergency (ER) | payer OTHER, MEDICAID, SELFPAY ==
[2021-08-03 14:40] VITALS: BP 122/74; PULSE 101; RESP 24; TEMP 37.1; O2SAT 98
[2021-08-03 15:20] LABS: COVID19 -Nasal RAPID Negative (Negative)
--- NOTE | 2021-08-03 18:24 | ED_ITS ---
HPI - Headache General Chief Complaint: Headache Stated Complaint: Migraine, vomiting, diarrhea, abd pain Time Seen by Provider: 08/03/21 18:23 Mode of arrival: Ambulatory History of Present Illness HPI Narrative: 35-year-old female nonsmoker presents with a chief complaint of nausea and vomiting over the past few days. She has had poor appetite a in very little intake and has developed a generalized headache. She denies fever chills, has no trauma or injury and denies any neck pain. She is a bit fatigued and feels lightheaded upon standing. Her headache seems to be made worse by bright lights and loud noise in many ways reminds her prior migraines. She denies blurred vision, dizziness or focal neurologic findings. She denies any chest pain or shortness of breath. She does have some generalized abdominal discomfort that is said in after having multiple episodes of vomiting. She denies any new medications or dietary change Related Data Home Medications Medication Instructions Recorded Confirmed escitalopram oxalate 10 mg tablet 10 mg PO DAILY 06/23/20 06/17/21 (Lexapro) Previous Rx's Medication Instructions Recorded hydroxyzine HCl 25 mg tablet 25 mg PO BID PRN #20 tab 09/23/20 ibuprofen 600 mg tablet 600 mg PO Q6H PRN #20 tab 09/23/20 triamcinolone acetonide 0.1 % 1 applic TOPICAL DAILY #15 g 03/11/21 topical ointment vitamin-ferrous fumarate 1 tab PO DAILY #90 tab 04/14/21 28 mg iron-folic acid 800 mcg tablet ( Vitamins with Minerals) valacyclovir 500 mg tablet 500 mg PO BID 5 Days #10 tab 05/13/21 levothyroxine 150 mcg tablet 150 mcg PO QAM #90 tab 05/29/21 Allergies Allergy/AdvReac Type Severity Reaction Status Date / Time No Known Drug Allergies Allergy Verified 06/17/21 14:47 Review of Systems Review of Systems Narrative: GENERAL: See HPI HEENT: Denies sinus pain, ear pain, sore throat, difficulty swallowing, dizziness. RESPIRATORY: Denies dyspnea, cough, wheezing, hemoptysis, sputum. CARDIOVASCULAR: Denies chest pain, palpitations, orthopnea, edema, GASTROINTESTINAL: See HPI. : Denies dysuria, frequency, incontinence, hematuria, urinary retention. MUSCULOSKELETAL: denies weakness, joint pain, or bony pain SKIN: Denies rash, skin lesions, or other NEUROLOGIC: see HPI PSYCHIATRIC: No concerning psychosocial issues. 12 point review of systems is negative except for those stated above Patient History Medical History Anxiety (~2004) Bipolar 1 disorder (~2016) Conjunctivitis Corneal abrasion, left (~2017) Corneal abrasion, right (~2018) Depression (~2004) Exercise-induced asthma Fatigue Ganglion cyst of dorsum of left wrist (~2012) Hypothyroid (~2001) Migraine (~2009) Pneumonia Pyelonephritis (~2014) Right otitis media with effusion Urinary tract infection (~2014) Vasovagal syncope (~2009) Surgical History History of adenoidectomy (~2001) History of back surgery (~2014) History of discectomy (~2014) History of placement of ear tubes (~1989) History of tympanoplasty of right ear (~2017) Hx of tonsillectomy (~2003) Family History Mother Cancer Stroke Father Depression Hypothyroid Bipolar 1 disorder Anxiety Grandmother Stroke Myocardial infarct Grandfather Congestive heart failure Grandmother Parkinson's disease Grandfather Congestive heart failure Cancer Brother Asthma Brother No problems noted. Social History marital status: unmarried,living together household members: significant other and family lives independently: Yes caregiver/support person: No housing: house pets and animals: Yes (3 dogs.) education level: college occupational status: employed current occupational exposures/hazards: No special jen needs: No leisure activities: exercise Smoking Status: Never smoker second hand exposure: No alcohol intake: former substance use type: marijuana Type(s) of exercise: bicycling Smoking Status: Never smoker tobacco type: vaping alcohol intake frequency: holidays/special occasions only Substance Use Type: does not use Exam Narrative Exam Narrative: GENERAL: [35] year old patient appears stated age. Well-developed patient, in mild distress. Obviously feeling unwell, holding an emesis bag HEAD: Atraumatic. Normocephalic. EYES: Pupils equal round and reactive. Extraocular motions intact. No scleral icterus. No injection or drainage. ENT: Nose without bleeding, purulent drainage. Throat without erythema, tonsillar hypertrophy or exudate. Airway patent. NECK: Trachea midline. Non tender, no meningeal signs, negative Brudzinski's, negative Kernig's CARDIOVASCULAR: Regular rate and rhythm without murmurs, gallops, or rubs. RESPIRATORY: Clear to auscultation. Breath sounds equal bilaterally. No wheezes, rales, or rhonchi. GASTROINTESTINAL: Abdomen soft, non-tender, nondistended. EXTREMITIES: No edema or joint tenderness. BACK: Nontender without deformity or crepitance. No flank tenderness. NEURO: AOx3. Cranial nerves 2-12 grossly intact SKIN: No rash or erythema of visible areas NIH Stroke Scale 1a. LOC: Patient is alert and keenly responsive (0) 1b. LOC Questions: Patient answers both LOC questions accurately (0) 1c. LOC Commands: Patient performs both tasks correctly (0) 2. Best Gaze: Normal (0) 3. Visual: No visual loss (0) 4. Facial palsy: Normal symmetrical movements (0) 5. Motor arm: No drift (0) 6. Motor leg: No drift (0) 7. Limb ataxia: Absent (0) 8. Sensory: Normal (0) 9. Best language: No aphasia; normal (0) 10. Dysarthria: Normal (0) 11. Extinction and inattention: No abnormality (0) NIHSS: 0 Initial Vital Signs Initial Vital Signs: Vital Signs Temperature 98.7 F 08/03/21 14:40 Pulse Rate 101 H 08/03/21 14:40 Respiratory Rate 24 08/03/21 14:40 Blood Pressure 122/74 08/03/21 14:40 Pulse Oximetry 98 08/03/21 14:40 Course Orders Ordered: ED Orders 08/03/21 18:50 Complete Blood Count AUTO DIFF Stat Comprehensive Metabolic Panel Stat 08/03/21 21:30 Urine Culture Stat Urine Microscopic Stat Discontinued Medications Sodium Chloride (Normal Saline 0.9%) 1,000 mls @ 1,000 mls/hr IV BOLUS ONE Stop: 08/03/21 20:11 Last Infusion: 08/03/21 21:19 Dose: 0 mls/hr Documented by: Admin: 08/03/21 19:18 Dose: 1,000 mls/hr Documented by: TONY Sodium Chloride (Normal Saline 0.9%) 1,000 mls @ 1,000 mls/hr IV BOLUS ONE Stop: 08/03/21 20:18 Last Infusion: 08/03/21 19:25 Dose: 0 mls/hr Documented by: Admin: 08/03/21 18:30 Dose: 1,000 mls/hr Documented by: TONY Ketorolac Tromethamine (Ketorolac 30 Mg/Ml Vial) 15 mg IV NOW ONE Stop: 08/03/21 18:43 Last Admin: 08/03/21 19:12 Dose: 15 mg Documented by: TONY Metoclopramide HCl (Metoclopramide 10 Mg/2 Ml Inj) 10 mg IV NOW ONE Stop: 08/03/21 19:13 Last Admin: 08/03/21 20:29 Dose: 10 mg Documented by: TONY Ondansetron HCl (Ondansetron 4 Mg/2 Ml Inj) 4 mg IV NOW ONE Stop: 08/03/21 18:43 Last Admin: 08/03/21 19:13 Dose: Not Given Documented by: TONY Ondansetron HCl (Ondansetron 4 Mg Odt Prepack) 1 bottle MISC SEEINSTR ONE Stop: 08/03/21 21:25 Last Admin: 08/03/21 21:32 Dose: 1 bottle Documented by: TONY Pantoprazole Sodium (Pantoprazole 40 Mg Vial) 40 mg IV NOW ONE Stop: 08/03/21 19:13 Last Admin: 08/03/21 19:18 Dose: 40 mg Documented by: TONY Vital Signs Vital signs: Vital Signs - 8 hr 08/03/21 20:25 Pulse Rate 70 Respiratory Rate 16 Blood Pressure 126/70 Pulse Oximetry 99 MDM - Headache Lab Data Result diagrams: 08/03/21 18:50 08/03/21 18:50 Labs: Lab Results 08/03/21 08/03/21 08/03/21 Range/Units 15:03 18:50 18:50 WBC 7.6 (4.5-11.0) X10^3/uL RBC 5.41 H (4.0-5.2) X10^6/uL Hgb 16.1 H (12.0-16.0) g/dL Hct 47.1 H (36-46) % MCV 87.1 (80-100) fL MCH 29.8 (26-34) PG MCHC 34.2 (30-36) % RDW 12.3 (11.6-14.8) % Plt Count 327 (150-400) X10^3/uL Neut % (Auto) 50.2 (50-75) % Lymph % (Auto) 34.3 (25-40) % [place] % (Auto) 9.3 (3-14) % Eos % (Auto) 5.3 H (2-4) % Baso % (Auto) 0.9 (0-2) % Neut # (Auto) 3800 (7376-4172) /uL Lymph # (Auto) 2600 (0824-8593) /uL [place] # (Auto) 700 (0-900) /uL Eos # (Auto) 400 (0-450) /uL Baso # (Auto) 100 (0-100) /uL Sodium 139 (137-145) mmol/L Potassium 3.8 (3.4-5.1) mmol/L Chloride 103 (98-107) mmol/L Carbon Dioxide 27 (22-32) mmol/L BUN 14 (7-17) mg/dL Creatinine 0.81 (0.52-1.04) mg/dL Estimated GFR > 60.0 (>60) mL/min BUN/Creatinine Ratio 17.3 (6-22) Glucose 97 (70-100) mg/dL Calcium 9.9 (8.4-10.2) mg/dL Total Bilirubin 1.4 H (0.2-1.3) mg/dL AST 42 H (14-36) IU/L ALT 24 (<35) IU/L Alkaline Phosphatase 95 (38-126) U/L Total Protein 9.2 H (6.3-8.2) g/dL Albumin 5.2 H (3.5-5.0) g/dL Globulin 4.0 (1.7-4.1) g/dL Albumin/Globulin Ratio 1.3 (1.0-2.8) Urine RBC (0-5/HPF) Urine WBC (0-5/HPF) Ur Squamous Epith Cells (0-5/HPF) Urine Bacteria (None) Urine Mucus (Negative) Ur Culture Indicated? SARS-CoV-2 (PCR) Negative (Negative) 02/21/22 Range/Units 21:30 WBC (4.5-11.0) X10^3/uL RBC (4.0-5.2) X10^6/uL Hgb (12.0-16.0) g/dL Hct (36-46) % MCV (80-100) fL MCH (26-34) PG MCHC (30-36) % RDW (11.6-14.8) % Plt Count (150-400) X10^3/uL Neut % (Auto) (50-75) % Lymph % (Auto) (25-40) % [place] % (Auto) (3-14) % Eos % (Auto) (2-4) % Baso % (Auto) (0-2) % Neut # (Auto) (2020-8295) /uL Lymph # (Auto) (5835-5087) /uL [place] # (Auto) (0-900) /uL Eos # (Auto) (0-450) /uL Baso # (Auto) (0-100) /uL Sodium (137-145) mmol/L Potassium (3.4-5.1) mmol/L Chloride (98-107) mmol/L Carbon Dioxide (22-32) mmol/L BUN (7-17) mg/dL Creatinine (0.52-1.04) mg/dL Estimated GFR (>60) mL/min BUN/Creatinine Ratio (6-22) Glucose (70-100) mg/dL Calcium (8.4-10.2) mg/dL Total Bilirubin (0.2-1.3) mg/dL AST (14-36) IU/L ALT (<35) IU/L Alkaline Phosphatase (38-126) U/L Total Protein (6.3-8.2) g/dL Albumin (3.5-5.0) g/dL Globulin (1.7-4.1) g/dL Albumin/Globulin Ratio (1.0-2.8) Urine RBC 0-1/hpf (0-5/HPF) Urine WBC 0-1/hpf (0-5/HPF) Ur Squamous Epith Cells 0-1 /hpf (0-5/HPF) Urine Bacteria Occasional (0-1) D (None) Urine Mucus 1+ H (Negative) Ur Culture Indicated? Culture not indicate SARS-CoV-2 (PCR) (Negative) Urine Dip Bedside Urine Glucose Negative Bedside Urine Bilirubin - Negative Bedside Urine Ketone + 15 Urine Specific [place] 1.030 Bedside Urine Occult Blood +/- Bedside Urine pH 6.0 Bedside Urine Protein +/- 15 Bedside Urine Urobilinogen - Negative Bedside Urine Nitrite - Negative Bedside Urine Leukocytes - Negative Esterase MDM Narrative Medical decision making narrative: Patient with reassuring history and physical exam. Symptoms greatly improved after above-stated therapies. Labs are reassuring. Headache considerations include, but not limited to: Subarachnoid hemorrhage, but unlikely as patient denies sudden onset of pain, not worst of life, or neck pain Meningitis considered, but thought unlikely given lack of Brudzinski's, Kernig's sign, altered mental status or fever Giant cell arteritis considered, but thought unlikely given lack of unilateral findings, pain in protestant, vision change HTN Emergency considered, but thought unlikely given normal vitals Other serious diagnoses considered unlikely given lack of red flag findings such as sudden onset, increasing frequency, immunocompromise, systemic signs (fever, chills, stiff neck, or rash), focal neurologic findings, trauma, blood thinners, etc. Patient's pain well controlled, vitals are stable, she is tolerating oral hydration. She is given extensive return precautions and questions have been answered to her apparent satisfaction Discharge Plan Departure Patient Disposition: Home Clinical Impression: Nausea & vomiting, Headache Instructions: DI for Headache, Nausea and Vomiting-Adult Activity Restrictions/Additional Instructions: *You have been diagnosed with [nausea, vomiting and headache. Your history and physical exam, as well as response to therapies are very reassuring. Your COVID test was negative, her exam does not suggest meningitis, electrolyte abnormality or other significant finding *What to do: *Please continue to take your regular medications as directed. [ ] New medication prescriptions sent to your pharmacy: [ ] [ ] New medication written as a paper prescription [x ] No new medications given *Please follow up with your primary care provider in 2-3 days, call for an appointment. Let them know you were seen in the Emergency Department and that we ask that you be seen in follow up. We will electronically transmit a record of today's note if your PCP is in our system *Please consider a clear liquid diet for the next 24-48 hours. *If you do not have a primary care provider please contact the [facility] Resource line at [phone]. They will ask some questions about your medical history and help get you set up with a doctor in the community. *Return to ER if you should have any new, worsening or concerning symptoms, such as [ fever > 101F, neck pain or stiffness, vomiting, confusion, seizure, focal weakness, vision change, speech deficit or other concerning symptoms ] Prescriptions: No Action escitalopram oxalate [Lexapro] 10 mg tablet 10 mg PO DAILY 0RF vit-iron fum-folic ac [ Vitamin with Minerals] 28 mg iron- 800 mcg tablet 1 tab PO DAILY Qty: 90 1RF valacyclovir 500 mg tablet 500 mg PO BID 5 Days Qty: 10 2RF hydroxyzine HCl 25 mg tablet 25 mg PO BID PRN (Reason: anxiety) Qty: 20 3RF ibuprofen 600 mg tablet 600 mg PO Q6H PRN (Reason: cramping) Qty: 20 2RF levothyroxine 150 mcg tablet 150 mcg PO QAM Qty: 90 0RF triamcinolone acetonide 0.1 % ointment 1 applic topical DAILY Qty: 15 1RF Hold Instructions: on hold...using clotrimazole/betamethasone Rx Instructions: Apply sparingly to affected skin of hands/fingers. Referrals: Christine Claros PA-C [Primary Care Provider] -
[2021-08-03] MEDS: ONDANSETRON 4 MG/2 ML INJ (18:30)
[2021-08-03] MEDS: SODIUM CHLORIDE 0.9% 1,000 ML 1000 ML IV ×2 (18:30→19:18)
[2021-08-03 19:04] LABS: Add Manual Diff / Slide Review NO; Basophils Absolute Auto 100 /uL (0-100); Basophils Percent Auto 0.9 % (0-2); Eosinophils Absolute Auto 400 /uL (0-450); Eosinophils Percent Auto 5.3 % (2-4); Hematocrit 47.1 % (36-46); Hemoglobin 16.1 g/dL (12.0-16.0); Lymphocytes Absolute Auto 2600 /uL (1100-4500); Lymphocytes Percent Auto 34.3 % (25-40); Mean Corpuscular HGB Conc 34.2 % (30-36); Mean Corpuscular Hemoglobin 29.8 PG (26-34); Mean Corpuscular Volume 87.1 fL (80-100); Monocytes Absolute Auto 700 /uL (0-900); Monocytes Percent Auto 9.3 % (3-14); Neutrophils Absolute Auto 3800 /uL (1500-7000); Neutrophils Percent Auto 50.2 % (50-75); Platelet Count 327 X10^3/uL (150-400); Red Blood Cell Count 5.41 X10^6/uL (4.0-5.2); Red Cell Distribution Width 12.3 % (11.6-14.8); White Blood Cell Count 7.6 X10^3/uL (4.5-11.0)
[2021-08-03] MEDS: KETOROLAC 30 MG/ML VIAL 15 MG IV (19:12)
[2021-08-03 19:16] LABS: Alanine Aminotransferase 24 IU/L (<35); Albumin 5.2 g/dL (3.5-5.0); Albumin Globulin Ratio 1.3 (1.0-2.8); Alkaline Phosphatase 95 U/L (38-126); Aspartate Aminotransferase 42 IU/L (14-36); BUN Creatinine Ratio 17.3 (6-22); Bilirubin Total 1.4 mg/dL (0.2-1.3); Blood Urea Nitrogen 14 mg/dL (7-17); Calcium 9.9 mg/dL (8.4-10.2); Carbon Dioxide 27 mmol/L (22-32); Chloride 103 mmol/L (98-107); Estimated Glomerular Filt Rate > 60.0 mL/min (>60); Glucose 97 mg/dL (70-100); HEMOLYSIS < 15 (0-50); Potassium 3.8 mmol/L (3.4-5.1); Sodium 139 mmol/L (137-145); Total Protein 9.2 g/dL (6.3-8.2)
[2021-08-03] MEDS: PANTOPRAZOLE 40 MG VIAL IV (19:18)
[2021-08-03 20:25] VITALS: BP 126/70; PULSE 70; RESP 16; O2SAT 99
[2021-08-03] MEDS: METOCLOPRAMIDE 10 MG/2 ML INJ IV (20:29)
[2021-08-03] MEDS: ONDANSETRON 4 MG ODT PREPACK 1 BOTTLE MISC (21:32)
[2021-08-03 21:57] LABS: Bacteria Urine Occasional (0-1); Mucus Urine 1+ (Negative); RBC Urine 0-1/HPF (0-5/HPF); Squamous Epithelial Cell Urine 0-1 /HPF (0-5/HPF); WBC Urine 0-1/HPF (0-5/HPF)
== END 2021-08-03 21:35 | disposition home or self-care (01) ==
PROVIDERS: Emergency Medicine; Emergency Provider Emergency Medicine; PCP Physician Assistant
DX: R11.2 Nausea with vomiting, unspecified (principal); R51.9 Headache, unspecified; R42 Dizziness and giddiness; Z20.822 Contact with and (suspected) exposure to COVID-19
CPT/HCPCS: 80053; 81003; 81015; 85025; 87086; 87635; 96361; 96374; 96375; 99283; 99284; C9803; C9113; J1885; J2405; J2765

== ENCOUNTER 2021-08-30 18:40 | Emergency (ER) | payer OTHER, MEDICAID, SELFPAY ==
[2021-08-30 18:43] VITALS: BP 157/86; PULSE 95; RESP 22; TEMP 37.1; O2SAT 98
--- NOTE | 2021-08-30 18:47 | DI.RAD.S_ITS ---
PROCEDURE: XR CHEST 2V INDICATIONS: cough TECHNIQUE: 2 views of the chest were acquired. COMPARISON: None. FINDINGS: Surgical changes and devices: None. Lungs and pleura: Lungs are clear. No pleural effusions or pneumothorax. Mediastinum: Mediastinal contours are normal. Heart size is normal. Bones and chest wall: No suspicious bony abnormalities. Soft tissues appear unremarkable. IMPRESSION: No acute cardiopulmonary disease. Dictated by: Olga Paez M.D. on 08/30/2021 at 19:31 Approved by: Olga Paez M.D. on 08/30/2021 at 19:31
[2021-08-30 19:07] LABS: COVID19 -Nasal RAPID Negative (Negative)
[2021-08-30] MEDS: ALBUTEROL 2.5 MG/3 ML NEB (ADULT) 20 MG INH (22:25)
[2021-08-30 22:43] VITALS: PULSE 95; RESP 30
--- NOTE | 2021-08-30 23:05 | ED.URI ---
HPI - URI/Sore Throat General Chief Complaint: Upper Respiratory Symptoms Stated Complaint: Bad Cough/Wheezing/Discomfort in Chest/Conjestion Time Seen by Provider: 08/30/21 22:54 Source: patient Mode of arrival: Ambulatory History of Present Illness HPI Narrative: Patient is a 35-year-old female who has very remote history of exercise-induced asthma but not for numerous years, history of hypothyroid as well presenting today with cough and difficulty breathing. She states it started with sinus infection she was on antibiotics for it she finished antibiotics but then started having cough and shortness of breath. It has been ongoing for the last 10 days. She says every time she lays flat she coughs and can freeze. In the morning she wakes up and she has audible wheezing. This has progressively gotten worse over the last 10 days but mostly over the last 2. She has not had any fever body aches or chills. Related Data Home Medications Medication Instructions Recorded Confirmed escitalopram oxalate 10 mg tablet 10 mg PO DAILY 06/23/20 06/17/21 (Lexapro) Previous Rx's Medication Instructions Recorded hydroxyzine HCl 25 mg tablet 25 mg PO BID PRN #20 tab 09/23/20 ibuprofen 600 mg tablet 600 mg PO Q6H PRN #20 tab 09/23/20 triamcinolone acetonide 0.1 % 1 applic TOPICAL DAILY #15 g 03/11/21 topical ointment vitamin-ferrous fumarate 1 tab PO DAILY #90 tab 04/14/21 28 mg iron-folic acid 800 mcg tablet ( Vitamins with Minerals) valacyclovir 500 mg tablet 500 mg PO BID 5 Days #10 tab 05/13/21 levothyroxine 150 mcg tablet 150 mcg PO QAM #90 tab 05/29/21 naratriptan 1 mg tablet See Rx Instructions PO .COMPLEX 08/05/21 #20 tab albuterol sulfate 90 mcg/actuation 2 puff INHALATION Q4-6H PRN #8.5 08/30/21 aerosol inhaler gram prednisone 20 mg tablet 40 mg PO DAILY #10 tab 08/30/21 Allergies Allergy/AdvReac Type Severity Reaction Status Date / Time No Known Drug Allergies Allergy Verified 06/17/21 14:47 Review of Systems Review of Systems Narrative: GENERAL: Denies chills, fatigue, malaise, fever, sweats, travel HEENT: Denies sinus pain, ear pain, sore throat, difficulty swallowing, neck pain RESPIRATORY: See HPI CARDIOVASCULAR: Denies chest pain, palpitations, orthopnea, edema GASTROINTESTINAL: Denies nausea, vomiting, abdominal pain, diarrhea, constipation, melena. : Denies dysuria, frequency, incontinence, hematuria, urinary retention, flank pain. MUSCULOSKELETAL: Denies weakness, joint pain, or bony pain SKIN: No rash, no erythema, no pruritus NEUROLOGIC: Denies weakness, dizziness, headache, numbness, change in speech, confusion PSYCHIATRIC: No concerning psychosocial issues. 12 point review of systems is negative except for those stated above and HPI Patient History Medical History Anxiety (~2004) Bipolar 1 disorder (~2016) Conjunctivitis Corneal abrasion, left (~2017) Corneal abrasion, right (~2017) Depression (~2004) Exercise-induced asthma Fatigue Ganglion cyst of dorsum of left wrist (~2012) Hypothyroid (~2001) Migraine (~2009) Pneumonia Pyelonephritis (~2014) Right otitis media with effusion Urinary tract infection (~2014) Vasovagal syncope (~2009) Surgical History History of adenoidectomy (~2001) History of back surgery (~2014) History of discectomy (~2014) History of placement of ear tubes (~1989) History of tympanoplasty of right ear (~2017) Hx of tonsillectomy (~2003) Family History Mother Cancer Stroke Father Depression Hypothyroid Bipolar 1 disorder Anxiety Grandmother Stroke Myocardial infarct Grandfather Congestive heart failure Grandmother Parkinson's disease Grandfather Congestive heart failure Cancer Brother Asthma Brother No problems noted. Social History marital status: unmarried,living together household members: significant other and family lives independently: Yes caregiver/support person: No housing: house pets and animals: Yes (3 dogs.) education level: college occupational status: employed current occupational exposures/hazards: No special jen needs: No leisure activities: exercise Smoking Status: Current some day smoker second hand exposure: No alcohol intake: former substance use type: marijuana Type(s) of exercise: bicycling Smoking Status: Current some day smoker tobacco type: vaping alcohol intake frequency: holidays/special occasions only Substance Use Type: marijuana Exam Initial Vital Signs Initial Vital Signs: Vital Signs Temperature 98.7 F 08/30/21 18:43 Pulse Rate 95 H 08/30/21 18:43 Respiratory Rate 22 08/30/21 18:43 Blood Pressure 157/86 H 08/30/21 18:43 Pulse Oximetry 98 08/30/21 18:43 GENERAL: Alert female coughing hard and vomiting appears uncomfortable HEENT: Head atraumatic,EOMI, pupils reactive, face symmetric, moist mucous membranes CARDIOVASCULAR: Regular rate and rhythm without murmurs, rubs or gallops. RESPIRATORY: Listened home while on a continuous nebs she is able to speak now while is taking nebulizer. Rest sounds are clear with no wheezing. She has very slight cough with deep inhalation. ABDOMEN: Soft, nontender. Normoactive bowel sounds all 4 quadrants. No guarding or rebound. EXTREMITIES: Normal range of motion, no clubbing or edema. Neurovascularly intact NEUROLOGICAL: Alert and oriented x4.Normal gait and speech. SKIN: Warm, dry, no laceration, no petechiae, no rashes or lesions. Course Orders Ordered: ED Orders 08/30/21 18:47 Chest [XR chest 2V] Stat 08/30/21 18:50 COVID19 -Nasal swab/Pre-Proc Stat 08/30/21 21:57 RT Consult Eval and Treat NOW Discontinued Medications Albuterol (Albuterol 2.5 Mg/3 Ml Neb (Adult)) 20 mg INH NOW ONE Stop: 08/30/21 22:12 Last Admin: 08/30/21 22:25 Dose: 20 mg Documented by: [email or web address] Albuterol (Albuterol Hfa Prepack) 1 box MISC SEEINSTR ONE Stop: 08/30/21 23:46 Last Admin: 08/30/21 23:56 Dose: 1 box Documented by: [email or web address] Vital Signs Vital signs: Vital Signs - 8 hr 08/30/21 22:43 08/30/21 23:56 08/31/21 00:03 Pulse Rate 95 H 85 97 H Respiratory Rate 30 H 20 20 Pulse Oximetry 98 99 MDM - URI/Sore Throat Lab Data Labs: Lab Results 08/30/21 Range/Units 18:50 SARS-CoV-2 (PCR) Negative (Negative) Imaging Data Chest x-ray: Radiologist's Impression: PROCEDURE:? XR CHEST 2V ? INDICATIONS:? cough ? TECHNIQUE:? 2 views of the chest were acquired.? ? COMPARISON:? None. ? FINDINGS:? ? Surgical changes and devices:? None.? ? Lungs and pleura:? Lungs are clear.? No pleural effusions or pneumothorax.? ? Mediastinum:? Mediastinal contours are normal.? Heart size is normal.? ? Bones and chest wall:? No suspicious bony abnormalities.? Soft tissues appear unremarkable.? ? IMPRESSION:? No acute cardiopulmonary disease.? ? ? Dictated by: Olga Paez M.D. on 08/30/2021 at 19:31 ? ? Approved by: Olga Paez M.D. on 08/30/2021 at 19:31 ? [facility] Narrative Medical decision making narrative: The patient initially appeared quite bad coughing and vomiting frequently. She was started on a continuous nebulizer which is is finally in as able to evaluate her. Lung sounds are clear she improved very quickly with the nebulizer. She is afebrile. Chest x-ray and COVID are negative. Probable upper respiratory virus. Patient overall looks significantly better than she did initially. History of exercise-induced asthma as she certainly seems to have reactive airway disease now, with a significant improvement with albuterol. At this time she has taught by respiratory how to use inhaler and a spacer. Will give her a course of prednisone to see how she does. Patient may return as needed and may require further evaluation and work up Discharge Plan Departure Patient Disposition: Home Clinical Impression: Upper respiratory infection, Asthma exacerbation Instructions: DI for Viral Upper Respiratory Infection -- Adult, DI for Reactive Airway Disease-Adult Activity Restrictions/Additional Instructions: *You have been diagnosed with upper respiratory infection asthma exacerbation *What to do: At this time have no evidence of pneumonia on her x-ray. I am glad that you improved with albuterol. *Continue to take medications as directed Albuterol 1-2 puffs every 4-6 hours if needed for wheezing cough or shortness of breath Prednisone 40 mg once a day for 5 days start tomorrow *Follow up with your primary care provider in 2-3 days or call [phone] *Return to ER if you should have increasing shortness of breath chest tightness fever or any new, worsening or concerning symptoms Prescriptions: New prednisone 20 mg tablet 40 mg PO DAILY Qty: 10 0RF albuterol sulfate 90 mcg/actuation HFA aerosol inhaler 2 puff INHALATION Q4-6H PRN (Reason: shortness of breath or wheezing) Qty: 8.5 0RF No Action escitalopram oxalate [Lexapro] 10 mg tablet 10 mg PO DAILY 0RF vit-iron fum-folic ac [ Vitamin with Minerals] 28 mg iron- 800 mcg tablet 1 tab PO DAILY Qty: 90 1RF valacyclovir 500 mg tablet 500 mg PO BID 5 Days Qty: 10 2RF naratriptan 1 mg tablet See Rx Instructions PO .COMPLEX Qty: 20 0RF Rx Instructions: take 1 tablet at onset of headache; if no relief, may repeat 1 tablet after at least 4 hrs PO hydroxyzine HCl 25 mg tablet 25 mg PO BID PRN (Reason: anxiety) Qty: 20 3RF ibuprofen 600 mg tablet 600 mg PO Q6H PRN (Reason: cramping) Qty: 20 2RF levothyroxine 150 mcg tablet 150 mcg PO QAM Qty: 90 0RF triamcinolone acetonide 0.1 % ointment 1 applic topical DAILY Qty: 15 1RF Hold Instructions: on hold...using clotrimazole/betamethasone Rx Instructions: Apply sparingly to affected skin of hands/fingers. Referrals: Christine Claros PA-C [Primary Care Provider] -
[2021-08-30 23:56] VITALS: PULSE 85; RESP 20; O2SAT 98
[2021-08-30] MEDS: ALBUTEROL HFA PREPACK 1 BOX MISC (23:56)
[2021-08-31 00:03] VITALS: PULSE 97; RESP 20; O2SAT 99
== END 2021-08-31 00:09 | disposition home or self-care (01) ==
PROVIDERS: Emergency Provider Emergency Medicine; PCP Physician Assistant
DX: J06.9 Acute upper respiratory infection, unspecified (principal); J45.901 Unspecified asthma with (acute) exacerbation; F17.290 Nicotine dependence, other tobacco product, uncomplicated; Z20.822 Contact with and (suspected) exposure to COVID-19
CPT/HCPCS: 71046; 87635; 99283; C9803; J7613

== ENCOUNTER → 2021-09-14 09:47 | Outpatient (CLI) | payer OTHER, MEDICAID, SELFPAY ==
[2021-09-14 19:52] LABS: Alanine Aminotransferase 17 IU/L (<35); Albumin 4.5 g/dL (3.5-5.0); Albumin Globulin Ratio 1.4 (1.0-2.8); Alkaline Phosphatase 88 U/L (38-126); Aspartate Aminotransferase 25 IU/L (14-36); BUN Creatinine Ratio 27.9 (6-22); Bilirubin Total 1.4 mg/dL (0.2-1.3); Blood Urea Nitrogen 19 mg/dL (7-17); Calcium 9.1 mg/dL (8.4-10.2); Carbon Dioxide 25 mmol/L (22-32); Chloride 103 mmol/L (98-107); Estimated Glomerular Filt Rate > 60.0 mL/min (>60); Globulin 3.2 g/dL (1.7-4.1); Glucose 101 mg/dL (70-100); HEMOLYSIS < 15 (0-50); Potassium 3.8 mmol/L (3.4-5.1); Sodium 137 mmol/L (137-145); Total Protein 7.7 g/dL (6.3-8.2)
[2021-09-14 20:18] LABS: TSH w/ Reflex to FT4 0.08 uIU/mL (0.47-4.68)
[2021-09-14 22:01] LABS: Free T4, Direct Thyroxine 2.16 ng/dL (0.78-2.19)
== END ==
PROVIDERS: PCP Physician Assistant; Visit Provider Physician Assistant
DX: E03.8 Other specified hypothyroidism (principal); R53.83 Other fatigue
CPT/HCPCS: 80053; 84439; 84443

== ENCOUNTER → 2022-02-02 10:44 | Outpatient (CLI) | payer OTHER, MEDICAID, SELFPAY ==
[2022-02-02 19:43] LABS: Add Manual Diff / Slide Review NO; Basophils Absolute Auto 0 /uL (0-100); Basophils Percent Auto 0.7 % (0-2); Eosinophils Absolute Auto 200 /uL (0-450); Eosinophils Percent Auto 3.2 % (2-4); Hemoglobin 13.7 g/dL (12.0-16.0); Lymphocytes Absolute Auto 2000 /uL (1100-4500); Lymphocytes Percent Auto 26.8 % (25-40); Mean Corpuscular Hemoglobin 31.5 PG (26-34); Monocytes Absolute Auto 600 /uL (0-900); Monocytes Percent Auto 8.3 % (3-14); Neutrophils Absolute Auto 4600 /uL (1500-7000); Platelet Count 253 X10^3/uL (150-400); Red Blood Cell Count 4.33 X10^6/uL (4.0-5.2); Red Cell Distribution Width 13.2 % (11.6-14.8); White Blood Cell Count 7.6 X10^3/uL (4.5-11.0)
[2022-02-02 20:17] LABS: TSH w/ Reflex to FT4 1.91 uIU/mL (0.47-4.68)
== END ==
PROVIDERS: PCP Physician Assistant; Visit Provider Nurse Practitioner Adult Health
DX: E03.8 Other specified hypothyroidism (principal); R17 Unspecified jaundice; D64.9 Anemia, unspecified; E05.90 Thyrotoxicosis, unspecified without thyrotoxic crisis or storm
CPT/HCPCS: 84443; 85025

== ENCOUNTER → 2022-03-29 14:43 | Outpatient (CLI) | payer OTHER, MEDICAID, SELFPAY ==
[2022-03-29 16:35] LABS: Add Manual Diff / Slide Review NO; Basophils Absolute Auto 0 /uL (0-100); Basophils Percent Auto 0.5 % (0-2); Eosinophils Absolute Auto 200 /uL (0-450); Eosinophils Percent Auto 2.9 % (2-4); Hematocrit 41.8 % (36-46); Hemoglobin 14.7 g/dL (12.0-16.0); Lymphocytes Absolute Auto 1200 /uL (1100-4500); Lymphocytes Percent Auto 13.8 % (25-40); Mean Corpuscular HGB Conc 35.1 % (30-36); Mean Corpuscular Hemoglobin 31.2 PG (26-34); Mean Corpuscular Volume 88.8 fL (80-100); Monocytes Absolute Auto 700 /uL (0-900); Monocytes Percent Auto 8.7 % (3-14); Neutrophils Absolute Auto 6300 /uL (1500-7000); Neutrophils Percent Auto 74.1 % (50-75); Platelet Count 215 X10^3/uL (150-400); Red Blood Cell Count 4.71 X10^6/uL (4.0-5.2); Red Cell Distribution Width 12.5 % (11.6-14.8); White Blood Cell Count 8.5 X10^3/uL (4.5-11.0)
[2022-03-29 17:01] LABS: Appearance Urine UA CLEAR; Bilirubin Urine UA NEGATIVE (NEGATIVE); Color Urine UA YELLOW; Glucose Urine UA NEGATIVE (Negative); Ketones Urine UA 1+ (NEGATIVE); Leukocyte Esterase Urine UA NEGATIVE (NEGATIVE); Nitrite Urine UA NEGATIVE (Negative); Occult Blood Urine UA NEGATIVE (Negative); Protein Urine UA 2+ (Negative); Specific Gravity Urine UA 1.015 (1.000-1.035); Urobilinogen Urine UA 0.2 E.U./dL (0.2)
[2022-03-29 17:03] LABS: pH Urine UA 6.5 (4.5-8.0)
[2022-03-29 18:26] LABS: Hepatitis B Surface Antigen NEGATIVE s/c (NEGATIVE); Rubella Antibody IgG 61.4 IU/mL (>15)
[2022-03-29 18:36] LABS: HIV 1 & 2 Ab/Ag 4th Gen Combo NEGATIVE (NEGATIVE); Hep C Virus Ab w/Reflex Quant NEGATIVE s/c (NEGATIVE)
[2022-03-29 20:49] LABS: Free T4, Direct Thyroxine 1.07 ng/dL (0.78-2.19)
[2022-03-29 21:03] LABS: Thyroid Stimulating Hormone 4.88 uIU/mL (0.47-4.68)
[2022-03-31 07:47] LABS: RPR Screen Non Reactive (Non Reactive)
[2022-03-31 11:51] LABS: Varicella IgG Antibody 583 index (Immune >165)
== END ==
PROVIDERS: Obstetrics & Gynecology; PCP Physician Assistant; Referring Provider Obstetrics & Gynecology; Visit Provider Obstetrics & Gynecology
DX: Z34.81 Encounter for supervision of other normal pregnancy, first trimester (principal)
CPT/HCPCS: 36415; 80055; 81003; 84439; 84443; 86787; 86803; 86850; 86900; 86901; 87389

== ENCOUNTER → 2022-04-30 14:45 | Outpatient (CLI) | payer OTHER, MEDICAID, SELFPAY ==
[2022-04-30 16:23] LABS: Free T4, Direct Thyroxine 0.92 ng/dL (0.78-2.19)
[2022-04-30 16:37] LABS: Thyroid Stimulating Hormone 2.56 uIU/mL (0.47-4.68)
[2022-05-03 13:56] LABS: AFP Value 40.2 ng/mL (.); Gest Age on Col Date 19.4 weeks (.); Insulin Dep Diabetes No (.); OSBR Risk 1IN 10000 (.); Results Report (.); Test Results *Screen Negative* (.)
== END ==
PROVIDERS: PCP Physician Assistant; Referring Provider Obstetrics & Gynecology; Visit Provider Obstetrics & Gynecology
DX: Z34.82 Encounter for supervision of other normal pregnancy, second trimester (principal); Z3A.19 19 weeks gestation of pregnancy; E03.9 Hypothyroidism, unspecified; E05.90 Thyrotoxicosis, unspecified without thyrotoxic crisis or storm
CPT/HCPCS: 36415; 82105; 84439; 84443

== ENCOUNTER 2022-06-13 20:15 | Emergency (ER) | payer OTHER, MEDICAID, SELFPAY ==
[2022-06-13 20:20] VITALS: BP 125/76; PULSE 86; RESP 20; TEMP 36.5; O2SAT 98; BMI 29.0
[2022-06-13 21:19] LABS: Influenza A - CEPHEID Flu A NEGATIVE (NEGATIVE); Influenza B - CEPHEID Flu B NEGATIVE (NEGATIVE); Respiratory Syncytial Virus POSITIVE (Negative)
[2022-06-13 21:25] LABS: COVID-19 CEPHEID 4-PLEX PCR Negative (Negative)
--- NOTE | 2022-06-13 23:13 | ED_ITS ---
HPI - SOB/Dyspnea General Chief Complaint: Shortness of Breath/Dyspnea Stated Complaint: cough/congestion/sob 26 weeks preg Time Seen by Provider: 06/13/22 22:51 Source: patient Mode of arrival: Ambulatory Limitations: no limitations History of Present Illness HPI Narrative: This is a 36-year-old female 26 weeks with anxiety/depression, exercise-induced asthma, migraines and hypothyroidism with nasal congestion, cough, chest tightness starting TuesdayJune 09. Patient states she has not been having active fevers. She does not headache today, she states she does get migraines she is not sure if it is just being sick or migraine. She states she is felt some tightness in her chest. Cough has been nonproductive. She is felt wheezy at times. She is had nausea and vomiting intermittently since then, she is not had any diarrhea or constipation. She states she is not moving a lot but is having stools. She denies dysuria, urgency or frequency. She states she is having lower abdominal cramping and some lower back cramping. She states no vaginal bleeding or fluid leakage. Patient denies any new swelling in her legs. She was prescribed codeine cough syrup, prednisone 20 mg daily and inhaler. Patient states she had multiple surgeries on her ears including tympanostomy and they have felt full. She is not having any pain. She denies any allergies to drugs Dr. Amaral is her current OBGYN. She lives on [facility]. No tobacco, no current alcohol, no illicit. 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 5 02/11/22 days #10 tabs levothyroxine 175 mcg capsule 175 mcg PO DAILY #90 caps 03/30/22 sertraline 50 mg tablet (Zoloft) 75 mg PO DAILY #45 tabs 04/22/22 pantoprazole 40 mg tablet,delayed 40 mg PO DAILY #30 tabs 04/30/22 release (Protonix) hydroxyzine HCl 25 mg tablet See Rx Instructions .Route 05/10/22 .COMPLEX #20 tabs albuterol sulfate 90 mcg/actuation 2 puff inhalation Q4-6H PRN 05/31/22 aerosol inhaler shortness of breath or wheezing #8.5 grams codeine 10 mg-guaifenesin 100 mg/5 10 ml PO Q4-6H PRN cough #237 mL 06/10/22 mL oral liquid (G Tussin AC) fluticasone propionate 110 2 puff inhalation BID #12 grams 06/10/22 mcg/actuation HFA aerosol inhaler prednisone 20 mg tablet 20 mg PO DAILY #5 tabs 06/10/22 ondansetron 4 mg disintegrating 4 mg PO QID PRN nausea and 06/14/22 tablet vomiting #10 tabs Allergies Allergy/AdvReac Type Severity Reaction Status Date / Time No Known Drug Allergies Allergy Verified 05/25/22 11:52 Review of Systems Review of Systems ROS Unobtainable: All systems reviewed & are unremarkable except as noted in HPI and below Patient History Medical History Anxiety (~2004) Bipolar 1 disorder (~2016) Chicken pox (~1992) Chronic back pain (~2011) Conjunctivitis Corneal abrasion, left (~2017) Corneal abrasion, right (~2017) Depression (~2004) Dyshidrotic hand dermatitis Eczema (~2020) Exercise-induced asthma Hearing loss History of recurrent ear infection (~1984) Hyperthyroidism Hypothyroid (~2001) Migraine (~2009) Nightmares Perforation of right tympanic membrane due to otitis media Pneumonia Pyelonephritis (~2014) Right otitis media with effusion Ruptured tympanic membrane Urinary tract infection (~2014) Vasovagal syncope (~2009) Surgical History Adverse effect of anesthesia Ganglion cyst of dorsum of left wrist (~2012) History of adenoidectomy (~2001) History of discectomy (~2014) History of placement of ear tubes (~1989) History of skin graft History of tympanoplasty of right ear (~2017) Hx of tonsillectomy (~2003) Family History Mother Stroke Leukemia Breast cancer Father Depression Hypothyroid Bipolar 1 disorder Anxiety Grandmother Stroke Myocardial infarct Grandfather Congestive heart failure Grandmother Parkinson's disease Grandfather Congestive heart failure Leukemia Brother Asthma Brother No problems noted. 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) current occupational exposures/hazards: No special jen needs: No travel history: over 6 months ago leisure activities: exercise seatbelt use: always water heater temp set < 120 deg: Yes working smoke detector in home: Yes fire extinguisher in home: Yes carbon monox detector in home: Yes firearms in home: No do you feel safe at home: Yes Smoking Status: Former smoker second hand exposure: No alcohol intake: former (rarely, only when not ) substance use type: marijuana (not while ) during the past year weight has: other (still losing baby weight) well-balanced diet: daily or most days daily servings fruits/ve-4 caffeine: Yes (Aware of 200mg limit) Type(s) of exercise: walking and bicycling frequency: daily Smoking Status: Former smoker tobacco type: vaping alcohol intake frequency: holidays/special occasions only Substance Use Type: marijuana Exam Narrative Exam Narrative: GEN: well nourished, well appearing female, alert and oriented x 3, patient appears to be in mild distress. HEENT: Atraumatic, pupils are equal round reactive to light, extraocular movements are intact, nares are clear, TMs have retraction, clear fluid no erythema, there is no conjunctival pallor. Throat is clear without any exudates, erythema, tonsillar enlargement or uvular deviation, positive for postnasal drip HEART: Regular rate and rhythm without murmur, clicks, rubs. Pulses are equal in upper and lower extremities LUNGS:Lungs clear to auscultation, no wheezes, rales, crackles, chest moves symmetrically, no tachypnea or accessory muscle use but patient has persistent dry cough. ABD:bowel sounds normal, soft, non-tender, gravid, no active contractions on exam. No guarding, rebound, rigidity, no masses noted, no hepatosplenomegaly :No CVA tenderness MSCL: Non-tender, no muscle atrophy, muscles strength 5/5 upper and lower extremities, full range of motion, normal gait NEURO:CN 2-12 intact, sensation normal SKIN: No rash, erythema or other skin changes Initial Vital Signs Initial Vital Signs: Vital Signs Temperature 97.7 F 06/13/22 20:20 Pulse Rate 86 06/13/22 20:20 Respiratory Rate 20 06/13/22 20:20 Blood Pressure 125/76 06/13/22 20:20 Pulse Oximetry 98 06/13/22 20:20 Oxygen Delivery Method 06/13/22 20:20 Course Orders Ordered: ED Orders 06/13/22 20:28 Covid-19 + FLU A/B + RSV - PCR Routine 06/13/22 23:21 Chest [XR chest 1V] Stat 06/13/22 23:25 Urine Culture Stat Urine Microscopic Stat 06/13/22 23:50 CBC Auto Diff [Complete Blood Count AUTO DIFF] Stat CMP [Comprehensive Metabolic Panel] Stat Lipase Stat Discontinued Medications Acetaminophen (Acetaminophen 325 Mg Tablet) 975 mg PO NOW ONE Stop: 06/13/22 23:22 Last Admin: 06/13/22 23:40 Dose: 975 mg Documented By: CHARITO Sodium Chloride (Normal Saline 0.9%) 1,000 mls @ 1,000 mls/hr IV BOLUS ONE Stop: 06/14/22 00:20 Last Infusion: 06/14/22 01:09 Dose: 0 mls/hr Documented By: Admin: 06/13/22 23:40 Dose: 1,000 mls/hr Documented By: CHARITO Ondansetron HCl (Ondansetron 4 Mg/2 Ml Inj) 4 mg IV NOW ONE Stop: 06/13/22 23:22 Last Admin: 06/13/22 23:40 Dose: 4 mg Documented By: CHARITO Ondansetron HCl (Ondansetron 4 Mg Odt Prepack) 1 bottle MISC SEEINSTR ONE Stop: 06/14/22 00:46 Last Admin: 06/14/22 01:09 Dose: 1 bottle Documented By: CHARITO Vital Signs Vital signs: Vital Signs - 8 hr 06/13/22 20:20 06/13/22 23:30 06/13/22 23:30 Temperature 97.7 F Pulse Rate 86 88 Respiratory Rate 20 Blood Pressure 125/76 123/72 Pulse Oximetry 98 96 Oxygen Delivery Method Room Air 06/14/22 00:00 06/14/22 00:00 06/14/22 00:30 Temperature Pulse Rate 70 Respiratory Rate Blood Pressure 111/64 102/57 L Pulse Oximetry 96 Oxygen Delivery Method 06/14/22 00:30 06/14/22 01:00 06/14/22 01:00 Temperature Pulse Rate 68 76 Respiratory Rate Blood Pressure 103/62 Pulse Oximetry 95 99 Oxygen Delivery Method MDM - SOB/Dyspnea Lab Data Result diagrams: 06/13/22 23:50 06/13/22 23:50 Labs: Lab Results 06/13/22 06/13/22 06/13/22 Range/Units 20:28 23:25 23:50 WBC 14.1 H (4.5-11.0) X10^3/uL RBC 4.54 (4.0-5.2) X10^6/uL Hgb 13.6 (12.0-16.0) g/dL Hct 40.8 (36-46) % MCV 90.0 (80-100) fL MCH 30.1 (26-34) PG MCHC 33.4 (30-36) % RDW 12.6 (11.6-14.8) % Plt Count 271 (150-400) X10^3/uL Neut % (Auto) 73.0 (50-75) % Lymph % (Auto) 18.5 L (25-40) % [place] % (Auto) 8.0 (3-14) % Eos % (Auto) 0.3 L (2-4) % Baso % (Auto) 0.2 (0-2) % Neut # (Auto) 12468 H (5623-2258) /uL Lymph # (Auto) 2600 (9948-8181) /uL [place] # (Auto) 1100 H (0-900) /uL Eos # (Auto) 0 (0-450) /uL Baso # (Auto) 0 (0-100) /uL Sodium (137-145) mmol/L Potassium (3.4-5.1) mmol/L Chloride (98-107) mmol/L Carbon Dioxide (22-32) mmol/L BUN (7-17) mg/dL Creatinine (0.52-1.04) mg/dL Estimated GFR (>60) mL/min BUN/Creatinine Ratio (6-22) Glucose (70-100) mg/dL Calcium (8.4-10.2) mg/dL Total Bilirubin (0.2-1.3) mg/dL AST (14-36) IU/L ALT (<35) IU/L Alkaline Phosphatase (38-126) U/L Total Protein (6.3-8.2) g/dL Albumin (3.5-5.0) g/dL Globulin (1.7-4.1) g/dL Albumin/Globulin Ratio (1.0-2.8) Lipase (23-300) U/L Urine RBC 0-1/hpf (0-5/HPF) Urine WBC 0-1/hpf (0-5/HPF) Ur Squamous Epith Cells 1-5 /hpf (0-5/HPF) Urine Bacteria Few (2-10) H (None) Urine Mucus 2+ H (Negative) Ur Culture Indicated? Specimen cultured SARS-CoV-2 (PCR) Negative (Negative) Influenza A (RT-PCR) Flu a negative (NEGATIVE) Influenza B (RT-PCR) Flu b negative (NEGATIVE) RSV (PCR) Positive A (Negative) 06/13/22 Range/Units 23:50 WBC (4.5-11.0) X10^3/uL RBC (4.0-5.2) X10^6/uL Hgb (12.0-16.0) g/dL Hct (36-46) % MCV (80-100) fL MCH (26-34) PG MCHC (30-36) % RDW (11.6-14.8) % Plt Count (150-400) X10^3/uL Neut % (Auto) (50-75) % Lymph % (Auto) (25-40) % [place] % (Auto) (3-14) % Eos % (Auto) (2-4) % Baso % (Auto) (0-2) % Neut # (Auto) (9918-2829) /uL Lymph # (Auto) (3506-1299) /uL [place] # (Auto) (0-900) /uL Eos # (Auto) (0-450) /uL Baso # (Auto) (0-100) /uL Sodium 135 L (137-145) mmol/L Potassium 4.0 (3.4-5.1) mmol/L Chloride 105 (98-107) mmol/L Carbon Dioxide 18 L (22-32) mmol/L BUN 10 (7-17) mg/dL Creatinine 0.49 L (0.52-1.04) mg/dL Estimated GFR > 60 (>60) mL/min BUN/Creatinine Ratio 20.4 (6-22) Glucose 100 (70-100) mg/dL Calcium 9.0 (8.4-10.2) mg/dL Total Bilirubin 0.9 (0.2-1.3) mg/dL AST 20 (14-36) IU/L ALT 14 (<35) IU/L Alkaline Phosphatase 90 (38-126) U/L Total Protein 7.9 (6.3-8.2) g/dL Albumin 4.1 (3.5-5.0) g/dL Globulin 3.8 (1.7-4.1) g/dL Albumin/Globulin Ratio 1.1 (1.0-2.8) Lipase 38 (23-300) U/L Urine RBC (0-5/HPF) Urine WBC (0-5/HPF) Ur Squamous Epith Cells (0-5/HPF) Urine Bacteria (None) Urine Mucus (Negative) Ur Culture Indicated? SARS-CoV-2 (PCR) (Negative) Influenza A (RT-PCR) (NEGATIVE) Influenza B (RT-PCR) (NEGATIVE) RSV (PCR) (Negative) Urine Dip Bedside Urine Glucose Negative Bedside Urine Bilirubin - Negative Bedside Urine Ketone + 15 Urine Specific [place] 1.025 Bedside Urine Occult Blood - Negative Bedside Urine pH 6.0 Bedside Urine Protein + 30 Bedside Urine Urobilinogen - Negative Bedside Urine Nitrite - Negative Bedside Urine Leukocytes - Negative Esterase Imaging Data Chest x-ray: Radiologist's Impression: Close Chest X-Ray (Signed) Yaniv Arambula - 06/13/22 DI Result 05/19/22 Chest X-Ray (Signed) PhilippeOlga - 08/30/21 Ultrasound (Signed) MarileeAydeKevin - 06/03/20 Launch?Image [address] [id number] XRay Report Signed Patient: Kathie Delgado MR#: [id number] : 1985 Acct:[id number] Age/Sex: 36 / F Date of Service: 06/13/22 Loc: ED Accession Number: [id number] ?? Procedure: XR chest 1V Ordering Provider: My Alatorre D.O. PROCEDURE:? XR CHEST 1V ? INDICATIONS:? + RSV, cough, tight in chest, + 26 weeks ? TECHNIQUE:? One view of the chest was acquired.? ? COMPARISON:? [facility], CR, XR CHEST 2V, 08/30/2021, 18:50. ? FINDINGS:? ? Surgical changes and devices:? None.? ? Lungs and pleura:? Mild, streaky opacities are seen at the lung bases.? No pleural effusions or pneumothorax.? ? Mediastinum:? Mediastinal contours appear normal.? Heart size is normal.? ? Bones and chest wall:? No suspicious bony lesions.? Overlying soft tissues appear unremarkable.? IMPRESSION:? Presumed atelectasis is seen at the lung bases.? Differential diagnosis includes minimal/early infiltrate, yet this is considered to be less likely. ? ? ? Dictated by: Yaniv Arambula M.D. on 06/13/2022 at 22:55 ? ? Approved by: Yaniv Arambula M.D. on 06/13/2022 at 22:56?? [facility] Narrative Medical decision making narrative: This is a 36-year-old female with complaint of worsening cough and wheezing, patient tested positive for RSV today, she is 26 weeks has been having some lower abdominal cramping and back cramping concerning for contractions. Plan for fluids, labs, Zofran, Tylenol as patient is having headache. She does not have any active wheezing currently. She has been using her albuterol at home every 3-4 hours. She has been on a low dose of steroids at 20 mg daily. Plan for chest x-ray, labs including CBC, CMP and lipase and urine sample. heart tones 166. Patient's urine shows no nitrites or leukocyte esterase, does have some bacteria sent for culture. Spoke with Dr. De La Cruz, who was covering for OBGYN, patient's labs and findings reviewed she has been having persistent contractions for the last 2 days and agrees NST would be appropriate for patient down at L&D. Suspect patient has been getting dehydrated from having vomiting, her recent RSV infection she is qu ite congestion and have an symptoms. She is not wheezy her lungs are clear she is not having any respiratory distress. She is not had any persistent vomiting in the department and seems to be responding well to fluids and Zofran, vitals were appropriate here. Sent for NST at L&D, discharged from ED. Discharge Plan Departure Patient Disposition: Home Clinical Impression: RSV (respiratory syncytial virus infection), , Vomiting Instructions: DI for Respiratory Syncytial Virus -- Adults Activity Restrictions/Additional Instructions: You have tested positive for RSV today, this is a common viral illness. You can take Tylenol up to a 1000 mg every 6 hours as needed for headaches or fevers. Go ahead and finish your prednisone prescribed, you may also continue your albuterol 4 puffs every 4 hours as needed. You can take Zofran 1 tablet every 6 hours as needed for nausea. Prescription sent to [facility] Please return for worsening chest pain, shortness of breath, persistent vomiting, signs of dehydration, black or bloody stools, worsening contractions or abdominal pain, lightheadedness or passing out or other new or concerning changes Prescriptions: New ondansetron 4 mg tablet,disintegrating 4 mg PO QID PRN (Reason: nausea and vomiting) Qty: 10 0RF No Action valacyclovir 500 mg tablet 500 mg PO BID 5 Days Qty: 10 2RF levothyroxine 175 mcg capsule 175 mcg PO DAILY Qty: 90 3RF sertraline [Zoloft] 50 mg tablet 75 mg PO DAILY Qty: 45 6RF hydroxyzine HCl 25 mg tablet See Rx Instructions .ROUTE .COMPLEX Qty: 20 2RF Dose Instruction: TAKE ONE TABLET BY MOUTH FOUR TIMES A DAY NEEDED Rx Instructions: TAKE ONE TABLET BY MOUTH FOUR TIMES A DAY NEEDED albuterol sulfate 90 mcg/actuation HFA aerosol inhaler 2 puff INHALATION Q4-6H PRN (Reason: shortness of breath or wheezing) Qty: 8.5 0RF pantoprazole [Protonix] 40 mg tablet,delayed release (DR/EC) 40 mg PO DAILY Qty: 30 5RF ondansetron 8 mg tablet,disintegrating 8 mg PO Q6H Qty: 30 2RF Hold Instructions: taking other antinausea rx instead prenat.vits,faye,[id number] Tablet 1 tab PO DAILY albuterol sulfate 2.5 mg /3 mL (0.083 %) solution for nebulization 2.5 mg inhalation Q4H PRN (Reason: bronchospasm) Qty: 75 0RF doxylamine-pyridoxine (vit B6) [Diclegis] 10-10 mg tablet,delayed release (DR/EC) 1 tab PO BID Qty: 60 2RF fluticasone propionate 110 mcg/actuation HFA aerosol inhaler 2 puff inhalation BID Qty: 12 0RF Rx Instructions: administer with spacer prednisone 20 mg tablet 20 mg PO DAILY Qty: 5 0RF codeine-guaifenesin [G Tussin AC] 10-100 mg/5 mL liquid 10 ml PO Q4-6H PRN (Reason: cough) Qty: 237 2RF Referrals: Christine Claros PA-C [Primary Care Provider] -
--- NOTE | 2022-06-13 23:21 | DI.RAD.S_ITS ---
PROCEDURE: XR CHEST 1V INDICATIONS: + RSV, cough, tight in chest, + 26 weeks TECHNIQUE: One view of the chest was acquired. COMPARISON: [facility], CR, XR CHEST 2V, 08/30/2021, 18:50. FINDINGS: Surgical changes and devices: None. Lungs and pleura: Mild, streaky opacities are seen at the lung bases. No pleural effusions or pneumothorax. Mediastinum: Mediastinal contours appear normal. Heart size is normal. Bones and chest wall: No suspicious bony lesions. Overlying soft tissues appear unremarkable. IMPRESSION: Presumed atelectasis is seen at the lung bases. Differential diagnosis includes minimal/early infiltrate, yet this is considered to be less likely. Dictated by: Yaniv Arambula M.D. on 06/13/2022 at 22:55 Approved by: Yaniv Arambula M.D. on 06/13/2022 at 22:56
[2022-06-13 23:30] VITALS: BP 123/72; PULSE 88; O2SAT 96
[2022-06-13] MEDS: ONDANSETRON 4 MG/2 ML INJ IV (23:40)
[2022-06-13] MEDS: SODIUM CHLORIDE 0.9% 1,000 ML 1000 ML IV (23:40)
[2022-06-13] MEDS: ACETAMINOPHEN 325 MG TABLET 975 MG PO (23:40)
[2022-06-13 23:53] LABS: RBC Urine 0-1/HPF (0-5/HPF)
[2022-06-13 23:54] LABS: Bacteria Urine Few (2-10); Culture Indicated Urine Specimen Cultured; Mucus Urine 2+ (Negative); Squamous Epithelial Cell Urine 1-5 /HPF (0-5/HPF); WBC Urine 0-1/HPF (0-5/HPF)
[2022-06-14] VITALS: BP 111/64; PULSE 70; O2SAT 96
[2022-06-14 00:07] LABS: Alanine Aminotransferase 14 IU/L (<35); Albumin 4.1 g/dL (3.5-5.0); Albumin Globulin Ratio 1.1 (1.0-2.8); Alkaline Phosphatase 90 U/L (38-126); Aspartate Aminotransferase 20 IU/L (14-36); BUN Creatinine Ratio 20.4 (6-22); Bilirubin Total 0.9 mg/dL (0.2-1.3); Blood Urea Nitrogen 10 mg/dL (7-17); Carbon Dioxide 18 mmol/L (22-32); Chloride 105 mmol/L (98-107); Estimated Glomerular Filt Rate > 60 mL/min (>60); Globulin 3.8 g/dL (1.7-4.1); Glucose 100 mg/dL (70-100); HEMOLYSIS < 15 (0-50); Lipase 38 U/L (23-300); Sodium 135 mmol/L (137-145); Total Protein 7.9 g/dL (6.3-8.2)
[2022-06-14 00:11] LABS: Add Manual Diff / Slide Review NO; Basophils Absolute Auto 0 /uL (0-100); Basophils Percent Auto 0.2 % (0-2); Eosinophils Absolute Auto 0 /uL (0-450); Eosinophils Percent Auto 0.3 % (2-4); Hematocrit 40.8 % (36-46); Hemoglobin 13.6 g/dL (12.0-16.0); Lymphocytes Absolute Auto 2600 /uL (1100-4500); Lymphocytes Percent Auto 18.5 % (25-40); Mean Corpuscular HGB Conc 33.4 % (30-36); Mean Corpuscular Hemoglobin 30.1 PG (26-34); Monocytes Absolute Auto 1100 /uL (0-900); Neutrophils Absolute Auto 10200 /uL (1500-7000); Platelet Count 271 X10^3/uL (150-400); Red Blood Cell Count 4.54 X10^6/uL (4.0-5.2); Red Cell Distribution Width 12.6 % (11.6-14.8); White Blood Cell Count 14.1 X10^3/uL (4.5-11.0)
[2022-06-14 00:30] VITALS: BP 102/57; PULSE 68; O2SAT 95
[2022-06-14 01:00] VITALS: BP 103/62; PULSE 76; O2SAT 99
[2022-06-14] MEDS: ONDANSETRON 4 MG ODT PREPACK 1 BOTTLE MISC (01:09)
== END 2022-06-14 01:34 | disposition home or self-care (01) ==
PROVIDERS: Emergency Provider Emergency Medicine; PCP Physician Assistant
DX: J06.9 Acute upper respiratory infection, unspecified (principal); B97.4 Respiratory syncytial virus as the cause of diseases classified elsewhere; O21.9 Vomiting of pregnancy, unspecified; R10.30 Lower abdominal pain, unspecified; Z3A.26 26 weeks gestation of pregnancy; Z20.822 Contact with and (suspected) exposure to COVID-19
CPT/HCPCS: 0241U; 71045; 80053; 81003; 81015; 83690; 85025; 87086; 96361; 96374; 99284; J2405

== ENCOUNTER 2022-06-14 01:17 | Outpatient (CLI) | payer OTHER, MEDICAID, SELFPAY ==
--- NOTE | 2022-06-14 07:22 | P.TNLD_ITS ---
Visit Information Visit Information Date of evaluation: 06/14/22 Primary OB Provider: Mariel Amaral Reason for Evaluation: Yes non-stress test Vital Signs Vital Signs: Temperature 36.5? blood pressure 124/73 rate 71 PFSH Medical History Anxiety (~2004) Bipolar 1 disorder (~2016) Chicken pox (~1992) Chronic back pain (~2011) Conjunctivitis Corneal abrasion, left (~2017) Corneal abrasion, right (~2017) Depression (~2004) Dyshidrotic hand dermatitis Eczema (~2020) Exercise-induced asthma Hearing loss History of recurrent ear infection (~1984) Hyperthyroidism Hypothyroid (~2001) Migraine (~2009) Nightmares Perforation of right tympanic membrane due to otitis media Pneumonia Pyelonephritis (~2014) Right otitis media with effusion Ruptured tympanic membrane Urinary tract infection (~2014) Vasovagal syncope (~2009) Surgical History Adverse effect of anesthesia Ganglion cyst of dorsum of left wrist (~2012) History of adenoidectomy (~2001) History of discectomy (~2014) History of placement of ear tubes (~1989) History of skin graft History of tympanoplasty of right ear (~2017) Hx of tonsillectomy (~2003) Family History Mother Stroke Leukemia Breast cancer Father Depression Hypothyroid Bipolar 1 disorder Anxiety Grandmother Stroke Myocardial infarct Grandfather Congestive heart failure Grandmother Parkinson's disease Grandfather Congestive heart failure Leukemia Brother Asthma Brother No problems noted. 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) current occupational exposures/hazards: No special jen needs: No travel history: over 6 months ago leisure activities: exercise seatbelt use: always water heater temp set < 120 deg: Yes working smoke detector in home: Yes fire extinguisher in home: Yes carbon monox detector in home: Yes firearms in home: No do you feel safe at home: Yes Smoking Status: Former smoker second hand exposure: No alcohol intake: former (rarely, only when not ) substance use type: marijuana (not while ) during the past year weight has: other (still losing baby weight) well-balanced diet: daily or most days daily servings fruits/ve-4 caffeine: Yes (Aware of 200mg limit) Type(s) of exercise: walking and bicycling frequency: daily Evaluation Evaluation Baseline heart rate: 140 Variability: Moderate (11-25) monitor accelerations: Present Monitor Decelerations: Absent Category of Tracing: Reactive Diagnosis, Plan/Disposition Final Diagnosis (1) RSV (respiratory syncytial virus infection): Status: Acute (2) 25 weeks gestation of : Status: Acute Plan/Disposition Plan: 36-year-old at 25 weeks and 6 days gestation here for NST. She was evaluated in the ER due to respiratory symptoms and diagnosed with RSV. She complains of some cramping but denies leaking or bleeding and reports good movement. NST reactive. No contractions noted on the monitor. Follow-up as scheduled in clinic or return sooner needed. OB Disposition: home
== END 2022-06-14 02:00 | disposition home or self-care (01) ==
LOC: OB 06-16 12:52
PROVIDERS: PCP Physician Assistant; Referring Provider Family Medicine; Visit Provider Family Medicine
DX: O98.512 Other viral diseases complicating pregnancy, second trimester (principal); B97.4 Respiratory syncytial virus as the cause of diseases classified elsewhere; Z3A.25 25 weeks gestation of pregnancy
CPT/HCPCS: 59025; 59050; G0378; G0379

== ENCOUNTER → 2022-06-28 09:09 | Outpatient (CLI) | payer OTHER, MEDICAID, SELFPAY ==
[2022-06-28 10:53] LABS: GTT (PREG) 1 Hour PP 50gm Dose 174 mg/dL (76-139)
[2022-06-28 10:54] LABS: Hematocrit 37.3 % (36-46); Hemoglobin 12.5 g/dL (12.0-16.0)
== END ==
PROVIDERS: PCP Physician Assistant; Referring Provider Obstetrics & Gynecology; Visit Provider Obstetrics & Gynecology
DX: O26.899 Other specified pregnancy related conditions, unspecified trimester (principal); Z3A.26 26 weeks gestation of pregnancy; Z67.91 Unspecified blood type, Rh negative
CPT/HCPCS: 36415; 82950; 85014; 85018; 86850

== ENCOUNTER → 2022-07-07 10:54 | Outpatient (CLI) | payer OTHER, MEDICAID, SELFPAY ==
[2022-07-07 11:54] LABS: Glucose Fasting Gestational 82 mg/dL (76-95)
[2022-07-07 13:19] LABS: Glucose 1 Hour Gest 138 mg/dL (76-180)
[2022-07-07 14:19] LABS: Glucose Tol Interp,Gestational INTERPRETATION
[2022-07-07 14:39] LABS: Glucose 2 Hour Gest 101 mg/dL (76-155)
[2022-07-07 15:30] LABS: Glucose 3 Hour Gest 67 mg/dL (76-140)
== END ==
PROVIDERS: PCP Physician Assistant; Referring Provider Obstetrics & Gynecology; Visit Provider Obstetrics & Gynecology
DX: R73.09 Other abnormal glucose (principal)
CPT/HCPCS: 36415; 82951; 82952

== ENCOUNTER 2022-08-22 15:37 | Observation (INO) | payer OTHER, MEDICAID, SELFPAY ==
[2022-08-22] MEDS: ONDANSETRON 4 MG/2 ML INJ IV (17:20)
[2022-08-22] MEDS: LACTATED RINGERS 1,000 ML 1000 ML IV (17:25)
[2022-08-22 17:28] LABS: Bilirubin Urine UA NEGATIVE (NEGATIVE); Color Urine UA YELLOW; Glucose Urine UA NEGATIVE (Negative); Ketones Urine UA NEGATIVE (NEGATIVE); Leukocyte Esterase Urine UA 1+ (NEGATIVE); Nitrite Urine UA NEGATIVE (Negative); Occult Blood Urine UA NEGATIVE (Negative); Protein Urine UA NEGATIVE (Negative); Urobilinogen Urine UA 0.2 E.U./dL (0.2)
[2022-08-22 17:38] LABS: Appearance Urine UA SL CLOUDY
[2022-08-22 17:54] LABS: Bacteria Urine Moderate (10-30); Culture Indicated Urine Specimen Cultured; RBC Urine None Seen (0-5/HPF); Squamous Epithelial Cell Urine 10-30 /HPF (0-5/HPF); WBC Urine 1-5/HPF (0-5/HPF)
[2022-08-22 18:26] LABS: Strep Grp B PCR NEG for Grp B Strep
--- NOTE | 2022-08-22 18:28 | P.TNLD_ITS ---
Visit Information Visit Information Date of evaluation: 08/22/22 Primary OB Provider: Mariel Amaral On-call OB Provider: Matt Barkley Reason for Evaluation: Yes non-stress test and Yes rule out labor Comments/Additional reasons for admission: Patient is 35 weeks and 4 days' gestation 2 para 1. Her 1st baby was born at 35 weeks. Patient began 10 30 this morning having contractions that she describes as moderate in intensity and coming every 3-5 minutes. As she lives on [facility] when she called I have recommended she come to the hospital for evaluation [facility] Medical History (Updated 08/22/22 @ 18:44 by Matt Barkley MD) Anxiety (~2004) Bipolar 1 disorder (~2016) Chicken pox (~1992) Chronic back pain (~2011) Conjunctivitis Corneal abrasion, left (~2017) Corneal abrasion, right (~2017) Dehydration during Depression (~2004) Dyshidrotic hand dermatitis Eczema (~2020) Exercise-induced asthma Hearing loss History of recurrent ear infection (~1984) Hyperthyroidism Hypothyroid (~2001) Migraine (~2009) Nightmares Perforation of right tympanic membrane due to otitis media Pneumonia Pyelonephritis (~2014) Right otitis media with effusion Ruptured tympanic membrane Urinary tract infection (~2014) Vasovagal syncope (~2009) Surgical History Adverse effect of anesthesia Ganglion cyst of dorsum of left wrist (~2012) History of adenoidectomy (~2001) History of discectomy (~2014) History of placement of ear tubes (~1989) History of skin graft History of tympanoplasty of right ear (~2017) Hx of tonsillectomy (~2003) Family History Mother Stroke Leukemia Breast cancer Father Depression Hypothyroid Bipolar 1 disorder Anxiety Grandmother Stroke Myocardial infarct Grandfather Congestive heart failure Grandmother Parkinson's disease Grandfather Congestive heart failure Leukemia Brother Asthma Brother No problems noted. 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) current occupational exposures/hazards: No special jen needs: No travel history: over 6 months ago leisure activities: exercise seatbelt use: always water heater temp set < 120 deg: Yes working smoke detector in home: Yes fire extinguisher in home: Yes carbon monox detector in home: Yes firearms in home: No do you feel safe at home: Yes Smoking Status: Former smoker second hand exposure: No alcohol intake: former (rarely, only when not ) substance use type: marijuana (not while ) during the past year weight has: other (still losing baby weight) well-balanced diet: daily or most days daily servings fruits/ve-4 caffeine: Yes (Aware of 200mg limit) Type(s) of exercise: walking and bicycling frequency: daily Exam Const General: cooperative and healthy appearing Nutritional Appearance: average body habitus Orientation: oriented x3 HENMT Head: normal to inspection Other: Exam per RN showed she was half a cm dilated 50% cervix was firm posterior and a -2 station Objective Labs Labs: Laboratory Results - last 24 hr 08/22/22 08/22/22 17:15 17:15 Urine Color Yellow Urine Appearance Sl cloudy Urine pH 7.0 Ur Specific [place] 1.020 Urine Protein Negative Urine Glucose (UA) Negative Urine Ketones Negative Urine Occult Blood Negative Urine Nitrate Negative Urine Bilirubin Negative Urine Urobilinogen 0.2 Ur Leukocyte Esterase 1+ H Urine RBC None seen Urine WBC 1-5/hpf Ur Squamous Epith Cells 10-30 /hpf H D Urine Bacteria Moderate (10-30) H Ur Culture Indicated? Specimen cultured Group B Strep (PCR) Neg for grp b strep Evaluation Evaluation Baseline heart rate: 135 Variability: Average (6-10) monitor accelerations: Present Monitor Decelerations: Absent Contraction Frequency (minutes): 5 Uterine Contraction Intensity: Mild Category of Tracing: Reactive Status: Category l Cervical dilation (cm): 1 Cervical effacement (%): 50 station: -3 Diagnosis, Plan/Disposition Final Diagnosis (1) False labor before 37 completed weeks of gestation: Status: Acute Problem details: With no progress of her cervix in 2-1/2 hours patient is deemed not to be in labor in spite of contractions which are most likely due to low-grade urinary tract infection and dehydration combination (2) UTI (urinary tract infection): Status: Acute Problem details: Ancef 1 g IV given we will await culture results (3) Dehydration during : Status: Acute Problem details: Patient was hydrated with lactated Ringer's (4) 35 to 36 weeks gestation of : Status: Acute Plan/Disposition Plan: Patient to follow-up in clinic tomorrow when has regular visit. Meanwhile will be staying at a hotel here in [place] rather than returning to [facility] Disposition: home
[2022-08-22] MEDS: TERBUTALINE 1 MG/ML VIAL 0.25 MG SUBCUT (18:32)
[2022-08-22] MEDS: CEFAZOLIN VIAL 1 GM in SODIUM CHLORIDE 0.9% 100 ML IV (18:45)
[2022-08-22] MEDS: NIFEdipine 30 MG TAB ER PO (19:40)
[2022-08-22 20:32] VITALS: BP 115/66; PULSE 86; RESP 19; TEMP 36.4
== END 2022-08-22 20:35 | disposition home or self-care (01) ==
LOC: LABOR 15:38
PROVIDERS: Obstetrics & Gynecology; Admitting Provider Obstetrics & Gynecology; PCP Physician Assistant; Referring Provider Obstetrics & Gynecology; Visit Provider Obstetrics & Gynecology
DX: O47.03 False labor before 37 completed weeks of gestation, third trimester (principal); O23.43 Unspecified infection of urinary tract in pregnancy, third trimester; N39.0 Urinary tract infection, site not specified; O26.893 Other specified pregnancy related conditions, third trimester; E86.0 Dehydration; Z3A.35 35 weeks gestation of pregnancy
CPT/HCPCS: 59025; 59050; 81001; 87081; 87086; 87653; 96360; 96372; G0378; G0379; J0690; J2405

== ENCOUNTER 2022-08-30 02:30 | Observation (INO) | payer OTHER, MEDICAID, SELFPAY ==
[2022-08-30] MEDS: LACTATED RINGERS 1,000 ML 1000 ML IV ×2 (03:20→04:20)
[2022-08-30] MEDS: PROMETHAZINE 25 MG TABLET PO (03:35)
[2022-08-30] MEDS: valACYclovir 500 MG TABLET PO (07:37)
[2022-08-30] MEDS: ACETAMINOPHEN 325 MG TABLET 975 MG PO (07:46)
[2022-08-30] MEDS: LEVOTHYROXINE 75 MCG TABLET PO (09:06)
[2022-08-30] MEDS: OXYCODONE IR 5 MG TABLET PO (09:40)
[2022-08-30 09:43] LABS: Add Manual Diff / Slide Review NO; Basophils Absolute Auto 0 /uL (0-100); Basophils Percent Auto 0.2 % (0-2); Eosinophils Absolute Auto 0 /uL (0-450); Eosinophils Percent Auto 0.3 % (2-4); Hematocrit 34.2 % (36-46); Hemoglobin 11.4 g/dL (12.0-16.0); Lymphocytes Absolute Auto 500 /uL (1100-4500); Lymphocytes Percent Auto 5.5 % (25-40); Mean Corpuscular HGB Conc 33.3 % (30-36); Mean Corpuscular Volume 87.2 fL (80-100); Monocytes Absolute Auto 600 /uL (0-900); Monocytes Percent Auto 7.1 % (3-14); Neutrophils Absolute Auto 7100 /uL (1500-7000); Neutrophils Percent Auto 86.9 % (50-75); Platelet Count 168 X10^3/uL (150-400); Red Blood Cell Count 3.92 X10^6/uL (4.0-5.2); Red Cell Distribution Width 13.8 % (11.6-14.8); White Blood Cell Count 8.1 X10^3/uL (4.5-11.0)
[2022-08-30 10:11] LABS: Alanine Aminotransferase 14 IU/L (<35); Albumin 3.3 g/dL (3.5-5.0); Albumin Globulin Ratio 1.1 (1.0-2.8); Alkaline Phosphatase 109 U/L (38-126); Aspartate Aminotransferase 23 IU/L (14-36); BUN Creatinine Ratio 22.2 (6-22); Bilirubin Total 1.6 mg/dL (0.2-1.3); Blood Urea Nitrogen 12 mg/dL (7-17); Calcium 8.2 mg/dL (8.4-10.2); Carbon Dioxide 20 mmol/L (22-32); Chloride 103 mmol/L (98-107); Estimated Glomerular Filt Rate > 60 mL/min (>60); Glucose 107 mg/dL (70-100); HEMOLYSIS < 15 (0-50); Potassium 3.7 mmol/L (3.4-5.1); Sodium 134 mmol/L (137-145); Total Protein 6.3 g/dL (6.3-8.2)
[2022-08-30 10:35] LABS: Appearance Urine UA CLEAR; Bilirubin Urine UA 1+ (NEGATIVE); Color Urine UA YELLOW; Glucose Urine UA NEGATIVE (Negative); Ketones Urine UA 3+ (NEGATIVE); Leukocyte Esterase Urine UA NEGATIVE (NEGATIVE); Nitrite Urine UA NEGATIVE (Negative); Occult Blood Urine UA NEGATIVE (Negative); Protein Urine UA 1+ (Negative); Specific Gravity Urine UA >=1.030 (1.000-1.035); Urobilinogen Urine UA 0.2 E.U./dL (0.2)
[2022-08-30 10:45] LABS: Amorphous Sediment Urine 3+; Bacteria Urine None Seen; Ictotest Urine Negative (Negative); RBC Urine None Seen (0-5/HPF); Squamous Epithelial Cell Urine 10-30 /HPF (0-5/HPF); WBC Urine None Seen (0-5/HPF)
[2022-08-30 10:46] LABS: Culture Indicated Urine Cult Not Indicated; Mucus Urine 2+ (Negative)
[2022-08-30] MEDS: ONDANSETRON 4 MG/2 ML INJ IV (11:04)
--- NOTE | 2022-08-30 12:18 | PM.OBTRLD ---
Visit Information Visit Information Date of evaluation: 08/30/22 Primary OB Provider: Mariel Amaral On-call OB Provider: Thais Rivera Reason for Evaluation: Yes other Comments/Additional reasons for admission: Patient with nausea, vomiting, diarrhea, contractions, back pain at 37 weeks Vital Signs Vital Signs: Blood pressure 116/57, pulse of 88, temperature 36.9? [facility] Medical History (Updated 08/30/22 @ 12:27 by Thais Rivera MD) Anxiety (~2004) Bipolar 1 disorder (~2016) Chicken pox (~1992) Chronic back pain (~2011) Conjunctivitis Corneal abrasion, left (~2017) Corneal abrasion, right (~2017) Depression (~2004) Dyshidrotic hand dermatitis Eczema (~2020) Exercise-induced asthma Hearing loss History of recurrent ear infection (~1984) Hyperthyroidism Hypothyroid (~2001) Migraine (~2009) Nightmares Perforation of right tympanic membrane due to otitis media Pneumonia Pyelonephritis (~2014) Right otitis media with effusion Ruptured tympanic membrane Urinary tract infection (~2014) Vasovagal syncope (~2009) Surgical History Adverse effect of anesthesia Ganglion cyst of dorsum of left wrist (~2012) History of adenoidectomy (~2001) History of discectomy (~2014) History of placement of ear tubes (~1989) History of skin graft History of tympanoplasty of right ear (~2017) Hx of tonsillectomy (~2003) Family History Mother Stroke Leukemia Breast cancer Father Depression Hypothyroid Bipolar 1 disorder Anxiety Grandmother Stroke Myocardial infarct Grandfather Congestive heart failure Grandmother Parkinson's disease Grandfather Congestive heart failure Leukemia Brother Asthma Brother No problems noted. 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) current occupational exposures/hazards: No special jen needs: No travel history: over 6 months ago leisure activities: exercise seatbelt use: always water heater temp set < 120 deg: Yes working smoke detector in home: Yes fire extinguisher in home: Yes carbon monox detector in home: Yes firearms in home: No do you feel safe at home: Yes Smoking Status: Former smoker second hand exposure: No alcohol intake: former (rarely, only when not ) substance use type: marijuana (not while ) during the past year weight has: other (still losing baby weight) well-balanced diet: daily or most days daily servings fruits/ve-4 caffeine: Yes (Aware of 200mg limit) Type(s) of exercise: walking and bicycling frequency: daily Review of Systems Review of Systems Narrative: Begin patient began having nausea, vomiting, diarrhea. She also began having contractions. Her family had recently gotten over a similar GI complaints. Patient denies leakage of fluid. No vaginal bleeding. Good movement. No fevers. She is complaining of severe back pain. Exam Narrative Exam Narrative: On examination the patient has tenderness to palpation of her back muscles. Abdomen is soft, nontender. Contractions have resolved. Patient had serial vaginal exams with unchanged exam from . Objective Labs 08/30/22 09:35 08/30/22 09:35 Labs: Laboratory Results - last 24 hr 08/30/22 08/30/22 08/30/22 09:35 09:35 10:30 WBC 8.1 RBC 3.92 L Hgb 11.4 L Hct 34.2 L MCV 87.2 MCH 29.0 MCHC 33.3 RDW 13.8 Plt Count 168 Neut % (Auto) 86.9 H Lymph % (Auto) 5.5 L [place] % (Auto) 7.1 Eos % (Auto) 0.3 L Baso % (Auto) 0.2 Neut # (Auto) 7100 H Lymph # (Auto) 500 L [place] # (Auto) 600 Eos # (Auto) 0 Baso # (Auto) 0 Sodium 134 L Potassium 3.7 Chloride 103 Carbon Dioxide 20 L BUN 12 Creatinine 0.54 Estimated GFR > 60 BUN/Creatinine Ratio 22.2 H Glucose 107 H Calcium 8.2 L Total Bilirubin 1.6 H AST 23 ALT 14 Alkaline Phosphatase 109 Total Protein 6.3 Albumin 3.3 L Globulin 3.0 Albumin/Globulin Ratio 1.1 Urine Color Yellow Urine Appearance Clear Urine pH 6.0 Ur Specific [place] >=1.030 H Urine Protein 1+ H Urine Glucose (UA) Negative Urine Ketones 3+ H Urine Occult Blood Negative Urine Nitrate Negative Urine Bilirubin 1+ H Ur Bilirubin Confirm Negative Urine Urobilinogen 0.2 Ur Leukocyte Esterase Negative Urine RBC None seen Urine WBC None seen Ur Squamous Epith Cells 10-30 /hpf H Amorphous Sediment 3+ Urine Bacteria None seen Urine Mucus 2+ H Ur Culture Indicated? Cult not indicated Evaluation Evaluation Baseline heart rate: 130 Variability: Moderate (11-25) monitor accelerations: Present Monitor Decelerations: Absent Uterine Contraction Intensity: Mild Category of Tracing: Reactive Status: Category l Cervical dilation (cm): 1 Cervical effacement (%): 50 station: -3 Diagnosis, Plan/Disposition Final Diagnosis (1) 36 weeks gestation of : Status: Acute (2) False labor before 37 completed weeks of gestation: Status: Acute Problem details: With no progress of her cervix in 2-1/2 hours patient is deemed not to be in labor in spite of contractions which are most likely due to low-grade urinary tract infection and dehydration combination (3) Gastroenteritis: Status: Acute (4) Back pain affecting in third trimester: Status: Acute Plan/Disposition Plan: Patient with gastroenteritis similar to other family members. No evidence of labor. Back pain likely due to muscle pain from vomiting. No evidence of kidney infection. Patient with prior . Patient plans to stay off [place] for a few days due to needing to come off [place] twice in last week for concerns for labor treated with IV fluids for dehydration. OB Disposition: home
== END 2022-08-30 11:30 | disposition home or self-care (01) ==
PROVIDERS: Specialist; Admitting Provider Advanced Practice Midwife; PCP Physician Assistant; Referring Provider Advanced Practice Midwife; Visit Provider Advanced Practice Midwife
DX: O47.03 False labor before 37 completed weeks of gestation, third trimester (principal); O26.93 Pregnancy related conditions, unspecified, third trimester; K52.9 Noninfective gastroenteritis and colitis, unspecified; M54.9 Dorsalgia, unspecified; Z3A.36 36 weeks gestation of pregnancy
CPT/HCPCS: 36415; 59025; 59050; 80053; 81001; 85025; 96360; G0378; G0379; J2405

== ENCOUNTER 2022-09-09 08:32 | Inpatient (IN) | payer OTHER, MEDICAID, SELFPAY ==
[2022-09-09] MEDS: LACTATED RINGERS 1,000 ML 100 ML IV (09:30)
[2022-09-09 10:26] LABS: Add Manual Diff / Slide Review NO; Basophils Absolute Auto 0 /uL (0-100); Basophils Percent Auto 0.3 % (0-2); Eosinophils Absolute Auto 100 /uL (0-450); Eosinophils Percent Auto 1.1 % (2-4); Hematocrit 37.5 % (36-46); Hemoglobin 12.4 g/dL (12.0-16.0); Lymphocytes Absolute Auto 2100 /uL (1100-4500); Lymphocytes Percent Auto 19.3 % (25-40); Mean Corpuscular Hemoglobin 28.4 PG (26-34); Monocytes Absolute Auto 1100 /uL (0-900); Monocytes Percent Auto 9.8 % (3-14); Neutrophils Absolute Auto 7700 /uL (1500-7000); Neutrophils Percent Auto 69.5 % (50-75); Platelet Count 243 X10^3/uL (150-400); Red Blood Cell Count 4.36 X10^6/uL (4.0-5.2); Red Cell Distribution Width 13.9 % (11.6-14.8)
[2022-09-09] MEDS: ONDANSETRON 4 MG/2 ML INJ IV ×2 (10:29→15:25)
[2022-09-09] MEDS: OXYTOCIN PREMIX 30 UNIT/500 ML PLAST..BAG IV (15:38)
--- NOTE | 2022-09-09 16:07 | P.HPOB_ITS ---
OB HPI Date/Time Date of admission: 09/09/22 Date Patient Seen: 09/09/22 Time Patient Seen: 13:30 History of Present Condition Chief complaint: OBS OF LABOR : 2 Para: 1 Estimated Date of Delivery: 09/21/22 Estimated Gestational Age (weeks): 38 Narrative: Kathie Delgado is a 36 year old female admitted in early labor History of Present care: good care, initiated at week # (8) and number of visits (10) Dating criteria: LMP confirmed by 1st trimester US Ultrasounds: normal mid trimester US Obstetrical complications: none Medical complications: none Preadmission Labs Blood type: O (+) positive -: Antibody screen: negative, GBS status: negative, HBsAG: negative, HIV: negative and RPR/VDLR: negative -: Chlamydia screen: not detected and Gonorrhea screen: not detected -: Rubella: immune and Varicella: immune HCAB: negative Quad screen: Normal 1 hr GTT: 174 3 hr GTT: 1 hr (138), 2 hr (101) and 3 hr (67) Fasting blood glucose: 82 Prior (ies) History: 09/21/2020 35 week 5 day vaginal delivery male weighing 5 lb with 4 hour labor Evaluation Evaluation Baseline heart rate: 120 Variability: Moderate (11-25) monitor accelerations: Present Monitor Decelerations: Absent Contraction Frequency (minutes): 4 Uterine Contraction Intensity: Moderate Category of Tracing: Reactive Status: Category l Dilation (cm): 2 Effacement (%): 70 station: -1 Consistency: soft PFSH Medical History (Updated 09/08/22 @ 12:15 by Thais Rivera MD) Anxiety (~2004) Bipolar 1 disorder (~2016) Chicken pox (~1992) Chronic back pain (~2011) Conjunctivitis Corneal abrasion, left (~2017) Corneal abrasion, right (~2017) Depression (~2004) Dyshidrotic hand dermatitis Eczema (~2020) Exercise-induced asthma Hearing loss History of recurrent ear infection (~1984) Hyperthyroidism Hypothyroid (~2001) Migraine (~2009) Nightmares Perforation of right tympanic membrane due to otitis media Pneumonia Pyelonephritis (~2014) Right otitis media with effusion Ruptured tympanic membrane Urinary tract infection (~2014) Vasovagal syncope (~2009) Surgical History Adverse effect of anesthesia Ganglion cyst of dorsum of left wrist (~2012) History of adenoidectomy (~2001) History of discectomy (~2014) History of placement of ear tubes (~1989) History of skin graft History of tympanoplasty of right ear (~2017) Hx of tonsillectomy (~2003) Family History Mother Stroke Leukemia Breast cancer Father Depression Hypothyroid Bipolar 1 disorder Anxiety Grandmother Stroke Myocardial infarct Grandfather Congestive heart failure Grandmother Parkinson's disease Grandfather Congestive heart failure Leukemia Brother Asthma Brother No problems noted. 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) current occupational exposures/hazards: No special jen needs: No travel history: over 6 months ago leisure activities: exercise seatbelt use: always water heater temp set < 120 deg: Yes working smoke detector in home: Yes fire extinguisher in home: Yes carbon monox detector in home: Yes firearms in home: No do you feel safe at home: Yes Smoking Status: Former smoker second hand exposure: No alcohol intake: former (rarely, only when not ) substance use type: marijuana (not while ) during the past year weight has: other (still losing baby weight) well-balanced diet: daily or most days daily servings fruits/ve-4 caffeine: Yes (Aware of 200mg limit) Type(s) of exercise: walking and bicycling frequency: daily Meds Home Medications and Allergies Home Medications Medication Instructions Recorded Confirmed Type albuterol sulfate 2.5 mg/3 mL 2.5 mg (3 mL) inhalation Q4H PRN 09/04/21 09/09/22 Rx (0.083 %) solution for nebulization bronchospasm #75 mL prenat.vits,faye,nnh-[id number]-[id number] 1 tab PO DAILY 01/21/22 09/09/22 History doxylamine 10 mg-pyridoxine (vit 1 tab PO BID #60 tabs 02/02/22 09/09/22 Rx B6) 10 mg tablet,delayed release (Diclegis) levothyroxine 175 mcg capsule 175 mcg PO DAILY #90 caps 03/30/22 09/09/22 Rx sertraline 50 mg tablet (Zoloft) 75 mg PO DAILY #45 tabs 04/22/22 09/09/22 Rx albuterol sulfate 90 mcg/actuation 2 puff inhalation Q4-6H PRN 05/31/22 09/09/22 Rx aerosol inhaler shortness of breath or wheezing #8.5 grams fluticasone propionate 110 2 puff inhalation BID #12 grams 06/10/22 09/09/22 Rx mcg/actuation HFA aerosol inhaler valacyclovir 500 mg tablet 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 Good movement. No vaginal bleeding. No headaches, scotomata, epigastric pain. OB Exam Vital signs Blood Pressure: 119/87 Pulse Rate: 92 Narrative Exam Narrative: HEENT exam within normal limits. No thyromegaly. Lungs are clear to auscultation percussion. Heart is regular rate and rhythm no S3-S4 murmurs. Abdomen is gravid. Fetus is vertex. Extremities with trace edema and no ntender. Objective Labs 09/09/22 09:20 Labs: Laboratory Results - last 24 hr 09/09/22 09/09/22 09:20 09:20 WBC 11.0 RBC 4.36 Hgb 12.4 Hct 37.5 MCV 86.0 MCH 28.4 MCHC 33.0 RDW 13.9 Plt Count 243 Neut % (Auto) 69.5 Lymph % (Auto) 19.3 L [place] % (Auto) 9.8 Eos % (Auto) 1.1 L Baso % (Auto) 0.3 Neut # (Auto) 7700 H Lymph # (Auto) 2100 [place] # (Auto) 1100 H Eos # (Auto) 100 Baso # (Auto) 0 Blood Type O Positive Antibody Screen Negative Assessment and Plan Assessment and Plan Assessment and Plan narrative: 38 week gestation with significant change in her cervix since yesterday and complaints of increasing contractions. Likelihood early labor. Patient with a history of fast labors and living remotely from the hospital. Admit for delivery. Time Spent with Patient Total time spent with greater than 50% in coordination of care (as documented) at patient's floor/unit and/or counseling patient:: less than 15 minutes
[2022-09-09 16:15] VITALS: BP 119/87; PULSE 92
[2022-09-09 16:19] VITALS: BP 119/87
[2022-09-09] MEDS: LIDOCAINE 1% 20 ML 40 ML (20:35)
[2022-09-09] MEDS: OXYTOCIN PREMIX 30 UNIT/500 ML PLAST..BAG 200 UNIT IV (20:35)
--- NOTE | 2022-09-09 20:52 | PM.OBPRVD ---
Labor & Delivery Delivery date: 09/09/22 Cervical ripening method: none Induction method: none Delivery augmentation: pitocin Delivery monitor: external FHT and external uterine Route of delivery: vacuum extraction Indication for instrumentation: maternal exhaustion L&D Laceration Description: Perineal - 2nd Degree Delivery repair: chromic (3 0) Estimated blood loss (mL): 300 Anesthesia Type: Spinal Narrative: Patient arrived on Labor and delivery in early labor. heart tones category 1 to category 2 throughout labor. Patient had Pitocin augmentation begun. When she was complete she received a spinal for anesthesia due to pain. The patient had difficulty pushing well due to pain despite the spinal. heart tones change to category 2 with late decelerations. The patient agreed to proceed with vacuum to assist delivery. The vacuum was placed and with 2 pushes releasing pressure in between the pushes the viable female infant was delivered over an intact perineum. There was a nuchal cord that was released after delivery of the baby. There was light green meconium tinge to the fluid. After the cord stopped pulsating the cord was clamped, cut, and cord bloods obtained. There were no cervical or vaginal tears. A second-degree midline perineal tear was repaired with 3-0 chromic suture in a two-layer fashion after injecting with approximately 10 cc of lidocaine. Estimated blood loss 300 cc. Both and mother doing well. [place] Baby 1: Infant gender: Female Presentation: vertex Position: Right Occiput Anterior Placenta delivery description: Spontaneous Cord Vessel Description: 3 Vessels and Nuchal Cord score (1 min): 7 score (5 min): 8 score (10 min): 9 Plan for aftercare: Routine care
[2022-09-09] MEDS: ACETAMINOPHEN 325 MG TABLET 650 MG PO (21:17)
[2022-09-09] MEDS: IBUPROFEN 600 MG TABLET PO (21:18)
[2022-09-09] MEDS: DERMOPLAST SPRAY 20% 60 ML 1 SPRAY TOP (21:18)
[2022-09-09] MEDS: LANOLIN OINT 7 GM 1 APPLIC TOP (21:18)
[2022-09-09] MEDS: OXYCODONE IR 5 MG TABLET PO (21:56)
[2022-09-10] MEDS: ONDANSETRON 4 MG/2 ML INJ IV ×3 (01:04→20:29)
[2022-09-10] MEDS: OXYCODONE IR 5 MG TABLET PO ×4 (02:06→19:24)
[2022-09-10] MEDS: ACETAMINOPHEN 325 MG TABLET 650 MG PO ×3 (04:02→19:23)
[2022-09-10] MEDS: IBUPROFEN 600 MG TABLET PO ×3 (04:02→18:03)
[2022-09-10 06:31] LABS: Add Manual Diff / Slide Review NO; Basophils Absolute Auto 100 /uL (0-100); Eosinophils Absolute Auto 100 /uL (0-450); Eosinophils Percent Auto 0.5 % (2-4); Hemoglobin 11.1 g/dL (12.0-16.0); Lymphocytes Absolute Auto 2800 /uL (1100-4500); Lymphocytes Percent Auto 24.4 % (25-40); Mean Corpuscular HGB Conc 33.6 % (30-36); Mean Corpuscular Hemoglobin 28.8 PG (26-34); Mean Corpuscular Volume 85.6 fL (80-100); Monocytes Absolute Auto 1000 /uL (0-900); Monocytes Percent Auto 8.3 % (3-14); Neutrophils Absolute Auto 7500 /uL (1500-7000); Neutrophils Percent Auto 65.8 % (50-75); Platelet Count 223 X10^3/uL (150-400); Red Blood Cell Count 3.85 X10^6/uL (4.0-5.2); Red Cell Distribution Width 13.9 % (11.6-14.8); White Blood Cell Count 11.5 X10^3/uL (4.5-11.0)
[2022-09-10] MEDS: LEVOTHYROXINE 50 MCG TABLET 175 MCG PO (07:22)
[2022-09-10] MEDS: SERTRALINE 50 MG TABLET 75 MG PO (10:10)
--- NOTE | 2022-09-10 17:34 | PM.OBPN.1 ---
Subjective - OB Subjective Patient comments: no complaints [place] baby status: doing well feeding status: exclusively breast feeding Narrative: day 1. The patient continues to have pretty significant cramps and pain requiring narcotics. She denies headaches. She is urinating and ambulating well. Breast-feeding is going well. Date Patient Seen: 09/10/22 Time Patient Seen: 17:34 Exam Vital Signs (past 8 hours): Blood pressure 124/65, pulse 68, temperature 97.5? Narrative Exam Narrative: Abdomen is soft nontender. Uterus is firm, at U, trace tender. Mild lochia. Extremities with trace edema and nontender. Objective Labs 09/10/22 06:17 Labs: Laboratory Results - last 24 hr 09/10/22 06:17 WBC 11.5 H RBC 3.85 L Hgb 11.1 L Hct 33.0 L MCV 85.6 MCH 28.8 MCHC 33.6 RDW 13.9 Plt Count 223 Neut % (Auto) 65.8 Lymph % (Auto) 24.4 L [place] % (Auto) 8.3 Eos % (Auto) 0.5 L Baso % (Auto) 1.0 Neut # (Auto) 7500 H Lymph # (Auto) 2800 [place] # (Auto) 1000 H Eos # (Auto) 100 Baso # (Auto) 100 Assessment & Plan Plan day: 0 plan OB: routine care Time Spent With Patient Time: Total time spent is greater than 50% in coordination of care (as documented) at patient's floor/unit and/or counseling patient: Time with patient: less than 15 minutes
[2022-09-11] MEDS: IBUPROFEN 600 MG TABLET PO ×2 (00:04→06:11)
[2022-09-11] MEDS: ACETAMINOPHEN 325 MG TABLET 650 MG PO ×2 (01:26→09:23)
[2022-09-11] MEDS: OXYCODONE IR 5 MG TABLET PO ×3 (01:27→10:53)
[2022-09-11] MEDS: LEVOTHYROXINE 50 MCG TABLET 175 MCG PO (06:12)
--- NOTE | 2022-09-11 07:53 | P.DS_ITS ---
Discharge Providers Provider Date of admission: 09/09/22 08:32 Discharge Date: 09/11/22 Primary care physician: Christine Claros PA-C Consults: 09/09/22 10:15 Consult to Anesthesiology Urgent Comment: Consulting Provider: Anesthesiologist Reason for consultation: Epidural Has provider been notified: No 09/10/22 20:50 Consult to Efficiency Miner Blasting Routine Comment: Discharge provider: Fani Phelps CNM Summary Hospital Course Date Patient Seen: 09/11/22 Time Patient Seen: 07:54 Diagnoses: O70.1, vacuum assisted Hospital Course: PPD2: Stable s/p vacuum assisted vagina . Voiding ambulating and breast feeding independently, without concerns. Continues to have cramping and tailbone pain controlled well with narcotics for breakthrough pain. Coping well rooming in with her baby and partner, feeling ready for discharge to home this morning. Peripartum Data Delivery Method: Assisted Delivery Laceration Description: Perineal - 2nd Degree Episiotomy description: None 1: Gender: Female Discharge Diagnosis (1) Vacuum-assisted delivery, delivered, current hospitalization: Start Date: 09/09/22 Status: Acute Problem Details: Routine course Status at Discharge Cognitive/behavioral status at discharge: oriented and calm Functional status at discharge: independent ambulation Overall status at discharge: patient is progressing back to baseline Time Spent with Patient Time attestation: Total time spent providing and/or coordinating discharge services: Time spent: Less than 30 minutes Objective Labs 09/10/22 06:17 Exam Vital Signs (past 8 hours): BP 113/70, HR 68bpm, RR 16/min, T 97.4 Tympanic Other: Fundus midline and firm @ U-1, lochia light, no clots. Perineum well approximated. Discharge Plan Discharge Plan Patient Disposition: Home Discharge orders & Medications Prescriptions: New oxycodone 5 mg Tablet 5 mg PO Q4HR PRN (Reason: Pain, Moderate (4-6)) 7 Days Qty: 10 0RF docusate sodium [Stool Softener] 100 mg capsule 100 mg PO BID 10 Days Qty: 20 0RF acetaminophen 325 mg Tablet 650 mg PO Q6HR PRN (Reason: Pain, Mild (1-3)) 14 Days Qty: 60 0RF ibuprofen 600 mg Tablet 600 mg PO Q6HR PRN (Reason: Pain, Mild (1-3)) 14 Days Qty: 60 0RF Continued levothyroxine 175 mcg capsule 175 mcg PO DAILY Qty: 90 3RF sertraline [Zoloft] 50 mg tablet 75 mg PO DAILY Qty: 45 6RF albuterol sulfate 90 mcg/actuation HFA aerosol inhaler 2 puff INHALATION Q4-6H PRN (Reason: shortness of breath or wheezing) Qty: 8.5 0RF prenat.vits,faye,dhi-pzvt-easze Tablet 1 tab PO DAILY albuterol sulfate 2.5 mg /3 mL (0.083 %) solution for nebulization 2.5 mg inhalation Q4H PRN (Reason: bronchospasm) Qty: 75 0RF fluticasone propionate 110 mcg/actuation HFA aerosol inhaler 2 puff inhalation BID Qty: 12 0RF Rx Instructions: administer with spacer ondansetron 4 mg tablet,disintegrating 4 mg PO QID PRN (Reason: nausea and vomiting) 7 Days Qty: 20 0RF Discontinued hydroxyzine HCl 25 mg tablet See Rx Instructions .ROUTE .COMPLEX Qty: 20 2RF Dose Instruction: TAKE ONE TABLET BY MOUTH FOUR TIMES A DAY NEEDED Rx Instructions: TAKE ONE TABLET BY MOUTH FOUR TIMES A DAY NEEDED valacyclovir 500 mg tablet 500 mg PO DAILY 5 Days Qty: 30 2RF oxycodone 5 mg Tablet 5 mg PO Q4HR PRN (Reason: Pain, Moderate (4-6)) Qty: 10 0RF doxylamine-pyridoxine (vit B6) [Diclegis] 10-10 mg tablet,delayed release (DR/EC) 1 tab PO BID Qty: 60 2RF Follow up/Referrals: Mariel Amaral MD [Physician] - 10/26/22 9:30 am (6 week follow ) Christine Claros PA-C [Primary Care Provider] - Diet/Activity/Treatments Diet: Diet as Tolerated and Regular Activity: no driving for 2 weeks, no heavy lifting for 4 weeks, pelvic rest x 6 weeks Skin/Wound/Dressing Care Report to your healthcare provider any signs of infection, such as:: chills, fever, increased pain, unusual drainage and unusual redness Visit Report/Discharge Packet Instructions: DI for Depression Stand Alone Forms: Patient Portal/API, Stroke Signs & Symptoms Discharge Data Primary Care Provider: Christine Claros Discharges patient from system. Discharge Date/Time: 09/11/22 08:13
[2022-09-11] MEDS: PRENATAL VIT,CALC/IRON/FOLIC 1 TABLET 1 TAB PO (09:23)
[2022-09-11] MEDS: SERTRALINE 50 MG TABLET 75 MG PO (09:24)
== END 2022-09-11 12:00 | disposition home or self-care (01) | DRG 560 ==
PROVIDERS: Admitting Provider Specialist; PCP Physician Assistant; Referring Provider Specialist; Visit Provider Specialist
DX: O75.81 Maternal exhaustion complicating labor and delivery (principal); Z3A.38 38 weeks gestation of pregnancy; Z37.0 Single live birth; O70.1 Second degree perineal laceration during delivery; O76 Abnormality in fetal heart rate and rhythm complicating labor and delivery
CPT/HCPCS: 36415; 59050; 59409; 85025; 86850; 86900; 86901; G0379; J2405; J2590

== ENCOUNTER 2023-01-13 10:30 | Outpatient (RCR) | payer OTHER, MEDICAID, SELFPAY ==
--- NOTE | 2023-01-02 15:00 | PT.OIE ---
Current Diagnoses Segmental and somatic dysfunction of pelvic region (12/30/22) Stress incontinence (female) (male) (12/30/22) Urge incontinence (12/30/22) Pelvic muscle wasting (12/30/22) Past Medical History (Last Updated 10/06/22 @ 17:26 by Christine Claros PA-C) Anxiety (~2004) Bipolar 1 disorder (~2016) Chicken pox (~1992) Chronic back pain (~2011) Conjunctivitis Corneal abrasion, left (~2017) Corneal abrasion, right (~2017) Depression (~2004) Dyshidrotic hand dermatitis Eczema (~2020) Exercise-induced asthma Hearing loss History of recurrent ear infection (~1984) Hyperthyroidism Hypothyroid (~2001) Migraine (~2009) Nightmares Perforation of right tympanic membrane due to otitis media Pneumonia Pyelonephritis (~2014) Right otitis media with effusion Ruptured tympanic membrane Urinary tract infection (~2014) Vasovagal syncope (~2009) Past Surgical History (Last Reviewed 06/13/22 @ 23:26 by My Alatorre DO) Adverse effect of anesthesia Ganglion cyst of dorsum of left wrist (~2012) History of adenoidectomy (~2001) History of discectomy (~2014) History of placement of ear tubes (~1989) History of skin graft History of tympanoplasty of right ear (~2017) Hx of tonsillectomy (~2003) Visit Care Team Role Provider Type Christine Claros PA-C Family Provider Advanced Pet Crematory Worker Primary Care Provider Specialty: Medical Address: [address] [place] [address], [id number] Email: [email or web address] Mariel Amaral MD Attending Provider Physician Referring Provider Specialty: Gynecology IT SECURITY CONSULTING DIRECTOR Obstetrics Address: [address] [place] [address], [id number] Email: [email or web address] Physical Therapy Initial Evaluation PT-OP-A Visit Information Start: 12/30/22 15:01 Freq: Status: Active Protocol: Document 12/30/22 15:03 [facility] (Rec: 12/30/22 16:12 [facility] [id number]) Out-Patient Physical Therapy Visit Information Visit Information Visit Type Initial Evaluation Visit Start Time 15:03 Visit Stop Time 15:48 Total Visit Minutes 45 Visit Number 1 Evaluation Information Evaluation Date 12/30/22 PT-OP-B Current Condition Start: 12/30/22 15:01 Freq: Status: Active Protocol: Document 12/30/22 15:03 [facility] (Rec: 12/30/22 16:12 [facility] [id number]) Current Condition History of Current Condition Onset Date With her last Current Complaints urinary urgency, frequency and constant leakage History of Current Condition 2 para 2 with delivery date 09/09/22 with vacumm assist. She notes her incontinence is Kathie reports her leakage has been awful. pt notes that with her second she began to experience leakage and it got worse as progressed. She is wearing a diaper for protection and has to change it 5 times per day. She is voiding often throughout the day, she wakes to nurse her daughter in the night and voids. History of low back disc bulge and surgery L5-S1. She does have symptoms of sciatica mainly the left side of the low back. Pt reports early on in her last she had pneumonia and RSV and was coughing for a long period of time. Treatment Goals Patient/Caregiver Goals Pts goals include eliminating urinary incontinence urgency and frequency PT-OP-C Subjective Start: 12/30/22 15:01 Freq: Status: Active Protocol: Document 12/30/22 12:30 [facility] (Rec: 01/02/23 15:00 [facility] [id number]) Patient Questionnaires Pelvic Pain and Urgency/Frequency Patient Symptom Scale Pelvic Pain Score 20 PT-OP-I Pelvic Floor Start: 12/30/22 15:01 Freq: Status: Active Protocol: Document 12/30/22 15:03 [facility] (Rec: 12/30/22 16:21 [facility] [id number]) Pelvic Floor Assessment Urine Pelvic Floor Surgery No: vaccum assist vaginal delivery Other Urinary Symptoms urgency and constant leakage Leakage Size Large Leakage Cause Cough,Exercise,Lifting,Sneeze, Urge Leaks Per Day pt goes through 5 diapers per day Nocturia 5 voids when up with her daughter to breast feed Pads Used In 24 Hours 5 Urine Pad Type Depends Pelvic Clock Pelvic Clock 12-3 Guarding Pelvic Clock 3-6 Guarding SEMG (uV) Baseline 5.3 10 Second Contraction 12.3 Recruitment Pattern Poor/Slow Relaxation Poor/Slow Holding Fair Stability of Hold Fair SEMG Stability of Rest Poor/Slow Contraction Ability Voluntary Contraction Weak Voluntary Relaxation Weak Manual Muscle Testing Left 2 Manual Muscle Testing Right 2 Manual Muscle Testing Anterior 2 Manual Muscle Testing Posterior 2 Muscle Endurance (Seconds) 5 Comments Pelvic Floor Comments average contraction is 12.3 uv on EMG biofeeback, max contraction is 22.3. Resting tone was elevated at 5.3 uv initially, this did improve to 3 uv following contract relax . PT-OP-J Posture/Palpation/Skin Start: 12/30/22 15:01 Freq: Status: Active Protocol: Document 12/30/22 12:30 [facility] (Rec: 01/02/23 14:58 [facility] [id number]) Palpation Assessment Location suprapubic fasica Palpation Details no fascial restrictions noted and no tenderness over the bladder PT-OP-M Strength Start: 01/02/23 14:58 Freq: Status: Active Protocol: Document 12/30/22 12:30 [facility] (Rec: 01/02/23 14:59 [facility] [id number]) Trunk Strength Trunk Manual Muscle Testing Testing Position Supine Flexion 3 Fair Core Stabilization Decreased core stabilization Comments Decreased TA activation in supine PT-OP-Q Treatments Start: 12/30/22 15:01 Freq: Status: Active Protocol: Document 12/30/22 15:03 [facility] (Rec: 12/30/22 16:13 [facility] [id number]) Therapeutic Exercises Supine Exercises happy baby Reps/Minutes hold 1-2 min modified squat stretch Reps/Minutes hold 1-2 minutes ball squeeze with pelvic floor contractions Reps/Minutes x 10 reps Comments left sided anterior pelvic floor tenderness pelvic floor long holds Reps/Minutes 10 reps holding 5 seconds and resting 10 seconds PT-OP-T Assessment and Plan Start: 12/30/22 15:01 Freq: Status: Active Protocol: Document 12/30/22 15:03 [facility] (Rec: 12/30/22 16:12 [facility] [id number]) Physical Therapy Assessment Rehab Potential Rehabilitation Potential Excellent Evaluation Complexity Number of Personal Factors/Comorbidities 0 Number of Body Systems Impaired 1-2 Clinical Presentation at Evaluation Stable Impairments Impairments Activity Tolerance,Strength, Tone Other Impairments constand complaints of urinary leakage and nocturia Goals 3 Impairment guarding of the left lateral wall of the levator ani, pt unable to relax below 5.3 uv on EMG biofeedback Short Term Goal (STG) Kathie is educated in relaxed awareness of the levator ani and is given hip stretches to help relax the pelvic floor at rest STG Duration 5 weeks 2 Impairment pelvic floor weakness from vaccum assist vaginal delivery with MMT of 2 /5 creating decreased bladder support Secondary Art Teacher Goal (LTG) Kathie demonstrates overall improved pelvic floor strength to 3/5 or better for improved support of her bladder LTG Duration 12 weeks 1 Impairment pt presents with urinary stress and urge incontinence with frequency and urgency voiding greater than every hour and up to 5 times per night Short Term Goal (STG) Kathie is educated on bladder retraining and urge deference technique STG Duration 4 weeks Secondary Art Teacher Goal (LTG) Kathie reports overall a reduction in urinary urgency and frequency as well as urinary stress incontinence. She is no longer needing to wear diapers throughout the day LTG Duration 12 weeks Assessment Summary Assessment Kathie is a 37 year old female 2 para 2 with her second on 09/09/22 with vaccum assist. Her baby was turned posterior. She presents to PT today with complaints of urinary incontinence that began during her . She feels her lack of bladder control is ruining her life and she is unable to deal with it any more. She reports that during her she contracted pneumonia and RSV and had a strong cough for a long period of time which contribted to her leakage. She has a past medical history of Discectomy at L5-S1 and severe TMJ. She denies any LE numbness and has no problem initiating the flow of urine. She describes constant leakage and she wears diapers for protection. Kathie reports having to change them up to 5 times per day. Leakage is caused by everything and she describes urgency and frequency and is unable to delay the need to void. She tries to empty her bladder frequently and wakes up 5 times per night with her baby to void. With pelvic floor assessment today there is guarding of the levator ani on the left lateral wall from 3-6 on the pelvic clock. Kathie has difficulty relaxing her pelvic floor on the left to be able to then contract it . Her MMT is 2/5 for all brenner. I did start EMG biofeedback with her and her average resting tone is 5.3 uv . Her average contraction is 12.3 uv average and max is 22 .3 uv. She has difficulty sustaining a contraction for endurance and difficulty relaxing her pelvic floor. Kathie is a good candidate for PT and she would benefit from both relaxed awareness of the pelvic floor as well as pelvic floor endurance training and core strengthening. Physical Therapy Plan Frequency and Duration Frequency of Treatment Every Other Week Duration of treatment (weeks) 12 Plan of Care Start Date 12/30/22 Plan of Care End Date 03/24/23 Therapeutic Interventions Therapeutic Interventions Home Exercise Program, Neuromuscular Re-education, Self-Care/Home Management, Therapeutic Exercises Modalities Biofeedback Next Visit Focus/Plan Next Note Type Treatment Note Next Visit Plan Review pelvic floor stretches, EMG biofeedback for pelvic floor endurance training, initiate NMES for neuro muscular awareness of the pelvic floor
--- NOTE | 2023-01-02 15:00 | PT.OPPOC ---
Physical, Occupational & Speech Therapy At [facility] Current Diagnoses Segmental and somatic dysfunction of pelvic region (12/30/22) Stress incontinence (female) (male) (12/30/22) Urge incontinence (12/30/22) Pelvic muscle wasting (12/30/22) Visit Care Team Role Provider Type Christine Claros PA-C Family Provider Advanced Cadd Drafter Primary Care Provider Specialty: Medical Address: [address] [place] [address], [address] Email: [email or web address] Mariel Amaral MD Attending Provider Physician Referring Provider Specialty: Gynecology EXPLOSIVES WORKER Obstetrics Address: [address] [place] [address], [address] Email: [email or web address] Plan Of Care PT-OP-T Assessment and Plan Start: 12/30/22 15:01 Freq: Status: Active Protocol: Document 12/30/22 15:03 [facility] (Rec: 12/30/22 16:12 [facility] [id number]) Physical Therapy Assessment Rehab Potential Rehabilitation Potential Excellent Evaluation Complexity Number of Personal Factors/Comorbidities 0 Number of Body Systems Impaired 1-2 Clinical Presentation at Evaluation Stable Impairments Impairments Activity Tolerance,Strength, Tone Other Impairments constand complaints of urinary leakage and nocturia Goals 3 Impairment guarding of the left lateral wall of the levator ani, pt unable to relax below 5.3 uv on EMG biofeedback Short Term Goal (STG) Kathie is educated in relaxed awareness of the levator ani and is given hip stretches to help relax the pelvic floor at rest STG Duration 5 weeks 2 Impairment pelvic floor weakness from vaccum assist vaginal delivery with MMT of 2 /5 creating decreased bladder support Research Instrumentation Technician Goal (LTG) Kathie demonstrates overall improved pelvic floor strength to 3/5 or better for improved support of her bladder LTG Duration 12 weeks 1 Impairment pt presents with urinary stress and urge incontinence with frequency and urgency voiding greater than every hour and up to 5 times per night Short Term Goal (STG) Kathie is educated on bladder retraining and urge deference technique STG Duration 4 weeks Research Instrumentation Technician Goal (LTG) Kathie reports overall a reduction in urinary urgency and frequency as well as urinary stress incontinence. She is no longer needing to wear diapers throughout the day LTG Duration 12 weeks Assessment Summary Assessment Kathie is a 37 year old female 2 para 2 with her second on 09/09/22 with vaccum assist. Her baby was turned posterior. She presents to PT today with complaints of urinary incontinence that began during her . She feels her lack of bladder control is ruining her life and she is unable to deal with it any more. She reports that during her she contracted pneumonia and RSV and had a strong cough for a long period of time which contribted to her leakage. She has a past medical history of Discectomy at L5-S1 and severe TMJ. She denies any LE numbness and has no problem initiating the flow of urine. She describes constant leakage and she wears diapers for protection. Kathie reports having to change them up to 5 times per day. Leakage is caused by everything and she describes urgency and frequency and is unable to delay the need to void. She tries to empty her bladder frequently and wakes up 5 times per night with her baby to void. With pelvic floor assessment today there is guarding of the levator ani on the left lateral wall from 3-6 on the pelvic clock. Kathie has difficulty relaxing her pelvic floor on the left to be able to then contract it . Her MMT is 2/5 for all brenner. I did start EMG biofeedback with her and her average resting tone is 5.3 uv . Her average contraction is 12.3 uv average and max is 22 .3 uv. She has difficulty sustaining a contraction for endurance and difficulty relaxing her pelvic floor. Kathie is a good candidate for PT and she would benefit from both relaxed awareness of the pelvic floor as well as pelvic floor endurance training and core strengthening. Physical Therapy Plan Frequency and Duration Frequency of Treatment Every Other Week Duration of treatment (weeks) 12 Plan of Care Start Date 12/30/22 Plan of Care End Date 03/24/23 Therapeutic Interventions Therapeutic Interventions Home Exercise Program, Neuromuscular Re-education, Self-Care/Home Management, Therapeutic Exercises Modalities Biofeedback Next Visit Focus/Plan Next Note Type Treatment Note Next Visit Plan Review pelvic floor stretches, EMG biofeedback for pelvic floor endurance training, initiate NMES for neuro muscular awareness of the pelvic floor Plan of Care Dates Plan of Care Start Date 12/30/22 Plan of Care End Date 03/24/23 Electronically Signed by: Xiao Doyle, PT 01/02/23 1500 If you are in agreement with this Plan of Care, please return a signed and dated copy. I have reviewed this Plan of Care and certify that the skilled therapy services above are required to meet the patient?s needs. Physician Signature Date Printed Name and Credentials Clinical Instructor Signature Printed Name and Credentials
--- NOTE | 2023-01-13 11:30 | PT.OTN ---
Current Diagnoses Segmental and somatic dysfunction of pelvic region (01/13/23) Stress incontinence (female) (male) (01/13/23) Urge incontinence (01/13/23) Pelvic muscle wasting (01/13/23) Physical Therapy Treatment Note PT-OP-A Visit Information Start: 12/30/22 15:01 Freq: Status: Active Protocol: Document 01/13/23 10:30 [facility] (Rec: 01/13/23 10:42 [facility] [id number]) Out-Patient Physical Therapy Visit Information Visit Information Visit Type Treatment Note Visit Start Time 10:30 Visit Stop Time 11:15 Total Visit Minutes 45 Visit Number 2 PT-OP-B Current Condition Start: 12/30/22 15:01 Freq: Status: Active Protocol: Document 12/30/22 15:03 [facility] (Rec: 12/30/22 16:12 [facility] [id number]) Current Condition History of Current Condition Onset Date With her last Current Complaints urinary urgency, frequency and constant leakage History of Current Condition 2 para 2 with delivery date 09/09/22 with vacumm assist. She notes her incontinence is Kathie reports her leakage has been awful. pt notes that with her second she began to experience leakage and it got worse as progressed. She is wearing a diaper for protection and has to change it 5 times per day. She is voiding often throughout the day, she wakes to nurse her daughter in the night and voids. History of low back disc bulge and surgery L5-S1. She does have symptoms of sciatica mainly the left side of the low back. Pt reports early on in her last she had pneumonia and RSV and was coughing for a long period of time. Treatment Goals Patient/Caregiver Goals Pts goals include eliminating urinary incontinence urgency and frequency PT-OP-C Subjective Start: 12/30/22 15:01 Freq: Status: Active Protocol: Document 01/13/23 10:30 [facility] (Rec: 01/13/23 10:42 [facility] [id number]) OP-PT Subjective Patient Comments Patient Comments pt notes she has been working on her pelvic floor every day but her leakage is causing a lot of frustration in her life Patient Reported Progress Same PT-OP-I Pelvic Floor Start: 12/30/22 15:01 Freq: Status: Active Protocol: Document 01/13/23 10:30 [facility] (Rec: 01/13/23 10:48 [facility] [id number]) Pelvic Floor Assessment SEMG (uV) Baseline 3.5 Comments Pelvic Floor Comments average 14.3 and max of 24.6 uv PT-OP-J Posture/Palpation/Skin Start: 12/30/22 15:01 Freq: Status: Active Protocol: Document 12/30/22 12:30 [facility] (Rec: 01/02/23 14:58 [facility] [id number]) Palpation Assessment Location suprapubic fasica Palpation Details no fascial restrictions noted and no tenderness over the bladder PT-OP-M Strength Start: 01/02/23 14:58 Freq: Status: Active Protocol: Document 12/30/22 12:30 [facility] (Rec: 01/02/23 14:59 [facility] [id number]) Trunk Strength Trunk Manual Muscle Testing Testing Position Supine Flexion 3 Fair Core Stabilization Decreased core stabilization Comments Decreased TA activation in supine PT-OP-Q Treatments Start: 12/30/22 15:01 Freq: Status: Active Protocol: Document 01/13/23 10:30 [facility] (Rec: 01/13/23 10:42 [facility] [id number]) Therapeutic Exercises Supine Exercises hip roll outs with theraband Equipment Used level 3 TB Reps/Minutes x 20 reps pelvic floor quick flicks Reps/Minutes x 10 reps holding 2 sec and relaxing 2 sec pelvic floor long holds Reps/Minutes x 10 reps holding 10 seconds and relaxing 10 sec Comments between 3-4 uv at rest Neuro Re-Education Treatment Other Activities NMES for the pelvic floor Details NMES for the pelvic floor Comments NMES at level 14 with vaginal sensor, pt could feel the sensor at level 8 Self-Care/Home Management Treatment Education Patient Education Home Exercise Program Other Education pt was given hand outs to add in hip ER and quick pelvic floor contractions to HEP PT-OP-T Assessment and Plan Start: 12/30/22 15:01 Freq: Status: Active Protocol: Document 01/13/23 10:30 [facility] (Rec: 01/13/23 10:42 [facility] [id number]) Physical Therapy Assessment Goals 3 Impairment guarding of the left lateral wall of the levator ani, pt unable to relax below 5.3 uv on EMG biofeedback Short Term Goal (STG) Kathie is educated in relaxed awareness of the levator ani and is given hip stretches to help relax the pelvic floor at rest STG Duration 5 weeks 2 Impairment pelvic floor weakness from vaccum assist vaginal delivery with MMT of 2 /5 creating decreased bladder support Senior Living Goal (LTG) Kathie demonstrates overall improved pelvic floor strength to 3/5 or better for improved support of her bladder LTG Duration 12 weeks 1 Impairment pt presents with urinary stress and urge incontinence with frequency and urgency voiding greater than every hour and up to 5 times per night Short Term Goal (STG) Kathie is educated on bladder retraining and urge deference technique STG Duration 4 weeks 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 She is no longer needing to wear diapers throughout the day LTG Duration 12 weeks Assessment Summary Assessment Kathie was better able to relax her pelvic floor today using EMGbiofeedback. She feels that she holds her pelvic floor in a tensed position due to leakage. She is showing improved strength today on EMG biofeedback as well. I added in NMES for the pelvic floor today and she tolerated this well feeling the sensation of pelvic floor contraction in midline only. Physical Therapy Plan Frequency and Duration Frequency of Treatment Every Other Week Duration of treatment (weeks) 12 Plan of Care Start Date 12/30/22 Plan of Care End Date 03/24/23 Therapeutic Interventions Therapeutic Interventions Home Exercise Program, Neuromuscular Re-education, Self-Care/Home Management, Therapeutic Exercises Modalities Biofeedback Next Visit Focus/Plan Next Note Type Treatment Note Next Visit Plan continue progressing pelvic floor strength and endurance training, continue with NMES
--- NOTE | 2023-03-10 13:54 | PT.OPDS ---
Current Diagnoses Segmental and somatic dysfunction of pelvic region (01/13/23) Stress incontinence (female) (male) (01/13/23) Urge incontinence (01/13/23) Pelvic muscle wasting (01/13/23) Visit Care Team Role Provider Type hCristine Claros PA-C Family Provider Advanced Stitcher Around Primary Care Provider Specialty: Medical Address: [address] [place] [address], [id number] Email: [email or web address] Mariel Amaral MD Attending Provider Physician Referring Provider Specialty: Gynecology [employer]IVE Obstetrics Address: [address] [place] [address], [id number] Email: [email or web address] Visit Number Visit Number 2 Discharge Summary PT-OP-B Current Condition Start: 12/30/22 15:01 Freq: Status: Active Protocol: Document 12/30/22 15:03 [facility] (Rec: 12/30/22 16:12 [facility] [id number]) Current Condition History of Current Condition Onset Date With her last Current Complaints urinary urgency, frequency and constant leakage History of Current Condition 2 para 2 with delivery date 09/09/22 with vacumm assist. She notes her incontinence is Kathie reports her leakage has been awful. pt notes that with her second she began to experience leakage and it got worse as progressed. She is wearing a diaper for protection and has to change it 5 times per day. She is voiding often throughout the day, she wakes to nurse her daughter in the night and voids. History of low back disc bulge and surgery L5-S1. She does have symptoms of sciatica mainly the left side of the low back. Pt reports early on in her last she had pneumonia and RSV and was coughing for a long period of time. Treatment Goals Patient/Caregiver Goals Pts goals include eliminating urinary incontinence urgency and frequency PT-OP-C Subjective Start: 12/30/22 15:01 Freq: Status: Active Protocol: Document 01/13/23 10:30 [facility] (Rec: 01/13/23 10:42 [facility] [id number]) OP-PT Subjective Patient Comments Patient Comments pt notes she has been working on her pelvic floor every day but her leakage is causing a lot of frustration in her life Patient Reported Progress Same PT-OP-I Pelvic Floor Start: 12/30/22 15:01 Freq: Status: Active Protocol: Document 01/13/23 10:30 [facility] (Rec: 01/13/23 10:48 [facility] [id number]) Pelvic Floor Assessment SEMG (uV) Baseline 3.5 Comments Pelvic Floor Comments average 14.3 and max of 24.6 uv PT-OP-J Posture/Palpation/Skin Start: 12/30/22 15:01 Freq: Status: Active Protocol: Document 12/30/22 12:30 [facility] (Rec: 01/02/23 14:58 [facility] [id number]) Palpation Assessment Location suprapubic fasica Palpation Details no fascial restrictions noted and no tenderness over the bladder PT-OP-M Strength Start: 01/02/23 14:58 Freq: Status: Active Protocol: Document 12/30/22 12:30 [facility] (Rec: 01/02/23 14:59 [facility] [id number]) Trunk Strength Trunk Manual Muscle Testing Testing Position Supine Flexion 3 Fair Core Stabilization Decreased core stabilization Comments Decreased TA activation in supine PT-OP-T Assessment and Plan Start: 12/30/22 15:01 Freq: Status: Active Protocol: Document 03/10/23 13:53 [facility] (Rec: 03/10/23 13:54 [facility] [id number]) Physical Therapy Assessment Goals 3 Impairment guarding of the left lateral wall of the levator ani, pt unable to relax below 5.3 uv on EMG biofeedback Short Term Goal (STG) Kathie is educated in relaxed awareness of the levator ani and is given hip stretches to help relax the pelvic floor at rest STG Duration 5 weeks 2 Impairment pelvic floor weakness from vaccum assist vaginal delivery with MMT of 2 /5 creating decreased bladder support Assisted Goal (LTG) Kathie demonstrates overall improved pelvic floor strength to 3/5 or better for improved support of her bladder LTG Duration 12 weeks 1 Impairment pt presents with urinary stress and urge incontinence with frequency and urgency voiding greater than every hour and up to 5 times per night Short Term Goal (STG) Kathie is educated on bladder retraining and urge deference technique STG Duration 4 weeks Wardrobe Consultant Goal (LTG) Kathie reports overall a reduction in urinary urgency and frequency as well as urinary stress incontinence. She is no longer needing to wear diapers throughout the day LTG Duration 12 weeks Assessment Summary Assessment Kathie has not been seen since and has now showed for her last 2 PT visits. Per hospital policy she will be discharged at this time. She was seen for a total of 2 visits in PT Physical Therapy Plan Discharge Physical Therapy Discharge Reasons No Longer Attending PT Discharge Comments Pt did not show up for her last 2 appts
== END 2023-03-11 09:39 | disposition home or self-care (01) ==
LOC: PHYS 10:30
PROVIDERS: Family Provider Physician Assistant; PCP Physician Assistant; Referring Provider Obstetrics & Gynecology; Visit Provider Obstetrics & Gynecology
DX: N39.3 Stress incontinence (female) (male) (principal); N39.41 Urge incontinence; M99.05 Segmental and somatic dysfunction of pelvic region; N81.84 Pelvic muscle wasting
CPT/HCPCS: 97110; 97112; 97161

== ENCOUNTER → 2023-03-28 16:03 | Outpatient (CLI) | payer OTHER, MEDICAID, SELFPAY | PROVIDERS: Family Provider Physician Assistant; PCP Physician Assistant; Visit Provider Physician Assistant | DX: J02.9 Acute pharyngitis, unspecified (principal) | CPT/HCPCS: 87070; 87880 ==

== ENCOUNTER 2023-09-19 13:42 | Emergency (ER) | payer OTHER, MEDICAID, SELFPAY ==
[2023-09-19] VITALS (9 sets, daily range): BP systolic 119–138; BP diastolic 71–93; PULSE 80–97; RESP 18–31; TEMP 37.1; O2SAT 92–99; BMI 22.2
--- NOTE | 2023-09-19 14:13 | DI.RAD.S_ITS ---
PROCEDURE: XR CHEST 1V INDICATIONS: Shortness of breath TECHNIQUE: One view of the chest was acquired. COMPARISON: [facility] ([place]), CR, XR CHEST 2V, 07/12/2023, 14:39. FINDINGS: Surgical changes and devices: None. Lungs and pleura: Lungs are clear. No pleural effusions or pneumothorax. Mediastinum: Mediastinal contours appear normal. Heart size is normal. Bones and chest wall: No suspicious bony lesions. Overlying soft tissues appear unremarkable. IMPRESSION: No acute pulmonary process. Dictated by: Cheyenne Bhatti M.D. on 09/19/2023 at 15:50 Approved by: Cheyenne Bhatti M.D. on 09/19/2023 at 15:50
[2023-09-19 15:10] LABS: Influenza A - CEPHEID Flu A NEGATIVE (NEGATIVE); Influenza B - CEPHEID Flu B NEGATIVE (NEGATIVE); Respiratory Syncytial Virus Negative (Negative)
[2023-09-19 15:54] LABS: COVID-19 CEPHEID 4-PLEX PCR Negative (Negative)
[2023-09-19] MEDS: ALBUTEROL/IPRATROPIUM 3 ML AMPUL 9 ML INH (17:08)
[2023-09-19 17:24] LABS: Add Manual Diff / Slide Review NO; Basophils Absolute Auto 100 /uL (0-100); Basophils Percent Auto 0.7 % (0-2); Eosinophils Absolute Auto 1600 /uL (0-450); Eosinophils Percent Auto 15.4 % (2-4); Hematocrit 43.9 % (36-46); Hemoglobin 14.7 g/dL (12.0-16.0); Lymphocytes Absolute Auto 1700 /uL (1100-4500); Lymphocytes Percent Auto 15.8 % (25-40); Mean Corpuscular HGB Conc 33.5 % (30-36); Mean Corpuscular Hemoglobin 29.7 PG (26-34); Mean Corpuscular Volume 88.6 fL (80-100); Monocytes Absolute Auto 700 /uL (0-900); Monocytes Percent Auto 6.4 % (3-14); Neutrophils Absolute Auto 6400 /uL (1500-7000); Neutrophils Percent Auto 61.7 % (50-75); Platelet Count 317 X10^3/uL (150-400); Red Blood Cell Count 4.96 X10^6/uL (4.0-5.2); Red Cell Distribution Width 13.9 % (11.6-14.8); White Blood Cell Count 10.5 X10^3/uL (4.5-11.0)
--- NOTE | 2023-09-19 17:24 | PC.NURSE ---
Pt had covid in may 2023, reports never fully recovering from sickness. She was not hospitalized at that time. She denies history of asthma or COPD, has been taking multiple albuterol nebulizers at home with no change in condition. Pt has severe headache, back pain from coughing, shortness of breath, tachypneic. Has been moving from [facility] to [facility] [place], reports anxiety from the move. Pt talking in 4 word sentences. RT at bedside. Provider notified.
[2023-09-19 17:36] LABS: INR 0.9 (0.9-1.3); Prothrombin Time 10.7 SECONDS (9.4-12.5)
[2023-09-19] MEDS: methylPREDNISolone 125 MG/2 ML VIAL IV (17:36)
--- NOTE | 2023-09-19 17:38 | ED.SOB ---
HPI - SOB/Dyspnea General Chief Complaint: Upper Respiratory Symptoms Stated Complaint: wheezing, sat 96%, from [facility] Time Seen by Provider: 09/19/23 17:17 Source: patient Mode of arrival: Wheelchair Limitations: no limitations History of Present Illness HPI Narrative: 37-year-old female with history of asthma, hypothyroidism, ADHD with complaint of increased shortness of breath. Patient states she has a history of asthma was sports induced has not needed increasingly more frequent over the past 4 months. Patient states no fevers recently. Former smoker used to vape, use use marijuana but does not regularly and long. Has a albuterol inhaler was prescribed Advair inhaler for some period of time but no longer has this. Did have a course of steroids in the last month which he states was helpful at the time but then was not. She feels tight in her chest, she feels wheezy she has had a cough is nonproductive. She denies any nausea or vomiting no other GI or urinary symptoms. No swelling of extremities. She states no prior hospitalizations for asthma. She does note she is 2 small children at home. Prior tonsils and adenoids. Related Data Home Medications Medication Instructions Recorded Confirmed dextroamphetamine-amphetamine 10 1 tab PO 3XD 03/28/23 09/19/23 mg tablet lorazepam 0.5 mg tablet mg PO 03/28/23 09/19/23 sertraline 100 mg tablet 100 mg PO DAILY 04/27/23 09/19/23 Previous Rx's Medication Instructions Recorded albuterol sulfate 2.5 mg/3 mL 2.5 mg (3 mL) inhalation Q4H PRN 09/04/21 (0.083 %) solution for nebulization bronchospasm #75 mL triamcinolone acetonide 0.025 % 1 applic topical BID eczema #15 10/06/22 topical cream grams levothyroxine 175 mcg tablet 175 mcg PO DAILY #90 tabs 04/15/23 fluticasone 250 mcg-salmeterol 50 1 inh inhalation BID #60 ea 07/12/23 mcg/dose blistr powdr for inhalation (Advair Diskus) benzonatate 200 mg capsule 200 mg PO BID PRN cough #30 caps 07/13/23 fluconazole 200 mg tablet 200 mg PO DAILY #1 tab 07/22/23 (Diflucan) albuterol sulfate 90 mcg/actuation 1 - 2 puff PO Q4-6H PRN for 08/29/23 aerosol inhaler wheezing #8.5 grams albuterol sulfate 90 mcg/actuation 2 puff inhalation Q4-6H PRN 09/19/23 aerosol inhaler shortness of breath or wheezing #8.5 grams fluticasone 250 mcg-salmeterol 50 1 inh inhalation BID #60 ea 09/19/23 mcg/dose blistr powdr for inhalation (Advair Diskus) prednisone 20 mg tablet 40 mg (2 x 20 mg) PO DAILY 5 days 09/19/23 #10 tabs Allergies Allergy/AdvReac Type Severity Reaction Status Date / Time No Known Drug Allergies Allergy Verified 09/19/23 13:25 Review of Systems Review of Systems ROS Unobtainable: All systems reviewed & are unremarkable except as noted in HPI and below Patient History Medical History Eczema (~2020) Chronic back pain (~2011) Chicken pox (~1992) Ruptured tympanic membrane History of recurrent ear infection (~1984) Hearing loss Perforation of right tympanic membrane due to otitis media Nightmares Dyshidrotic hand dermatitis Hyperthyroidism Right otitis media with effusion Urinary tract infection (~2014) Pneumonia Exercise-induced asthma Hypothyroid (~2001) Migraine (~2009) Bipolar 1 disorder (~2016) Anxiety (~2004) Depression (~2004) Corneal abrasion, right (~2017) Conjunctivitis Corneal abrasion, left (~2017) Pyelonephritis (~2014) Vasovagal syncope (~2009) Surgical History History of skin graft Adverse effect of anesthesia Ganglion cyst of dorsum of left wrist (~2012) History of discectomy (~2014) History of placement of ear tubes (~1989) History of adenoidectomy (~2001) Hx of tonsillectomy (~2003) History of tympanoplasty of right ear (~2017) Family History Mother Stroke Leukemia Breast cancer Father Depression Hypothyroid Bipolar 1 disorder Anxiety Grandmother Stroke Myocardial infarct Grandfather Congestive heart failure Grandmother Parkinson's disease Grandfather Congestive heart failure Leukemia Brother Asthma Brother No problems noted. 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) current occupational exposures/hazards: No special jen needs: No travel history: over 6 months ago leisure activities: exercise seatbelt use: always water heater temp set < 120 deg: Yes working smoke detector in home: Yes fire extinguisher in home: Yes carbon monox detector in home: Yes firearms in home: No do you feel safe at home: Yes Smoking Status: Former smoker second hand exposure: No alcohol intake: former (rarely, only when not ) substance use type: marijuana (not while ) during the past year weight has: other (still losing baby weight) well-balanced diet: daily or most days daily servings fruits/ve-4 caffeine: Yes (Aware of 200mg limit) Type(s) of exercise: walking and bicycling frequency: daily Smoking Status: Former smoker tobacco type: vaping alcohol intake frequency: holidays/special occasions only Substance Use Type: marijuana Exam Initial Vital Signs Initial Vital Signs: Vital Signs Temperature 98.8 F 09/19/23 14:06 Pulse Rate 94 H 09/19/23 14:06 Respiratory Rate 24 09/19/23 14:06 Blood Pressure 124/85 09/19/23 14:06 Pulse Oximetry 96 09/19/23 14:06 Oxygen Delivery Method Room Air 09/19/23 14:06 Course Orders Ordered: ED Orders 09/19/23 14:13 XR chest 1V Stat EKG-12 Lead Stat Measure peak expiratory flow ONCE RT Consult Eval and Treat NOW 09/19/23 14:14 Covid-19 + FLU A/B + RSV - PCR Stat 09/19/23 17:13 Complete Blood Count AUTO DIFF Stat Comprehensive Metabolic Panel Stat D Dimer Stat Lactate (Lactic Acid) Stat NT-proBNP (BNP-Adult 18+) Stat Prothrombin Time INR Stat Troponin I Stat Discontinued Medications Albuterol (Albuterol 2.5 Mg/3 Ml Neb (Adult)) 10 mg INH NOW ONE Stop: 09/19/23 17:38 Last Admin: 09/19/23 18:02 Dose: 10 mg Documented By: GORAN Albuterol/Ipratropium (Albuterol/Ipratropium 3 Ml Ampul) 9 ml INH NOW ONE Stop: 09/19/23 17:05 Last Admin: 09/19/23 17:08 Dose: 9 ml Documented By: DARION Magnesium Sulfate (Magnesium Sulfate) 2 gm in 50 mls @ 150 mls/hr IV NOW ONE Stop: 09/19/23 17:56 Last Infusion: 09/19/23 18:25 Dose: Infused Documented By: SANTOS Co-signed By: MINE Admin: 09/19/23 17:59 Dose: 150 mls/hr Documented By: SANTOS Co-signed By: PETERSON Ketorolac Tromethamine (Ketorolac 30 Mg/Ml Vial) 15 mg IV NOW ONE Stop: 09/19/23 17:51 Last Admin: 09/19/23 17:55 Dose: 15 mg Documented By: SANTOS Methylprednisolone (Methylprednisolone 125 Mg/2 Ml Vial) 125 mg IV NOW ONE Stop: 09/19/23 17:18 Last Admin: 09/19/23 17:36 Dose: 125 mg Documented By: SANTOS Vital Signs Vital signs: Vital Signs - 8 hr 09/19/23 14:06 09/19/23 17:04 09/19/23 17:04 Temperature 98.8 F Pulse Rate 94 H 87 Respiratory Rate 24 31 H Blood Pressure 124/85 119/92 H Pulse Oximetry 96 96 Oxygen Delivery Method Room Air Oxygen Flow Rate Fraction of Inspired Oxygen 09/19/23 17:09 09/19/23 17:30 09/19/23 17:30 Temperature Pulse Rate 80 97 H Respiratory Rate 22 28 H Blood Pressure 125/93 H Pulse Oximetry 96 94 Oxygen Delivery Method Room Air Oxygen Flow Rate Fraction of Inspired Oxygen 09/19/23 17:47 09/19/23 17:47 09/19/23 18:00 Temperature Pulse Rate 93 H 94 H Respiratory Rate 26 H 18 Blood Pressure 138/82 Pulse Oximetry 99 98 Oxygen Delivery Method Room Air Room Air Oxygen Flow Rate Fraction of Inspired Oxygen 09/19/23 18:00 09/19/23 18:02 09/19/23 18:30 Temperature Pulse Rate 84 96 H Respiratory Rate 20 18 Blood Pressure 126/88 Pulse Oximetry 95 92 Oxygen Delivery Method Room Air Oxygen Flow Rate 0 Fraction of Inspired Oxygen 21 09/19/23 18:30 09/19/23 19:00 09/19/23 19:00 Temperature Pulse Rate 96 H Respiratory Rate 21 Blood Pressure 123/71 126/76 Pulse Oximetry 93 Oxygen Delivery Method Room Air Oxygen Flow Rate Fraction of Inspired Oxygen MDM - SOB/Dyspnea Lab Data 09/19/23 17:13 09/19/23 17:13 Labs: Lab Results 09/19/23 09/19/23 Range/Units 14:14 17:13 WBC 10.5 (4.5-11.0) X10^3/uL RBC 4.96 (4.0-5.2) X10^6/uL Hgb 14.7 (12.0-16.0) g/dL Hct 43.9 (36-46) % MCV 88.6 (80-100) fL MCH 29.7 (26-34) PG MCHC 33.5 (30-36) % RDW 13.9 (11.6-14.8) % Plt Count 317 (150-400) X10^3/uL Neut % (Auto) 61.7 (50-75) % Lymph % (Auto) 15.8 L (25-40) % [place] % (Auto) 6.4 (3-14) % Eos % (Auto) 15.4 H (2-4) % Baso % (Auto) 0.7 (0-2) % Neut # (Auto) 6400 (4372-2187) /uL Lymph # (Auto) 1700 (5347-4397) /uL [place] # (Auto) 700 (0-900) /uL Eos # (Auto) 1600 H (0-450) /uL Baso # (Auto) 100 (0-100) /uL PT 10.7 (9.4-12.5) SECONDS INR 0.9 (0.9-1.3) D-Dimer < 215 (<500) ng/ml Sodium 139 (137-145) mmol/L Potassium 3.8 (3.4-5.1) mmol/L Chloride 110 H (98-107) mmol/L Carbon Dioxide 22 (22-32) mmol/L BUN 10 (7-17) mg/dL Creatinine 0.58 (0.52-1.04) mg/dL Estimated GFR > 60 (>60) mL/min BUN/Creatinine Ratio 17.2 (6-22) Glucose 85 (70-100) mg/dL Lactate 0.7 (0.7-2.1) mmol/L Calcium 9.2 (8.4-10.2) mg/dL Total Bilirubin 0.8 (0.2-1.3) mg/dL AST 23 (14-36) IU/L ALT 14 (<35) IU/L Alkaline Phosphatase 76 (38-126) U/L Troponin I < 0.012 (0.01-0.034) ng/mL NT-Pro-B Natriuret Pep 111 (<125) pg/mL Total Protein 7.5 (6.3-8.2) g/dL Albumin 4.5 (3.5-5.0) g/dL Globulin 3.0 (1.7-4.1) g/dL Albumin/Globulin Ratio 1.5 (1.0-2.8) SARS-CoV-2 (PCR) Negative (Negative) Influenza A (RT-PCR) Flu a negative (NEGATIVE) Influenza B (RT-PCR) Flu b negative (NEGATIVE) RSV (PCR) Negative (Negative) Imaging Data Chest x-ray: Radiologist's Impression: [address] [address] XRay Report Signed Patient: Kathie Delgado MR#: [id number] : 1985 Acct:[id number] Age/Sex: 37 / F Date of Service: 09/19/23 Loc: ED Accession Number: [id number] Procedure: XR chest 1V Ordering Provider: My Alatorre D.O. PROCEDURE: XR CHEST 1V INDICATIONS: Shortness of breath TECHNIQUE: One view of the chest was acquired. COMPARISON: [facility] ([facility], , XR CHEST 2V, 07/12/2023, 14:39. FINDINGS: Surgical changes and devices: None. Lungs and pleura: Lungs are clear. No pleural effusions or pneumothorax. Mediastinum: Mediastinal contours appear normal. Heart size is normal. Bones and chest wall: No suspicious bony lesions. Overlying soft tissues appear unremarkable. IMPRESSION: No acute pulmonary process. Dictated by: Cheyenne Bhatti M.D. on 09/19/2023 at 15:50 Approved by: Cheyenne Bhatti M.D. on 09/19/2023 at 15:50 ECG Data Attestation: I personally reviewed and interpreted this ECG as follows: Interpretation: Normal sinus rhythm rate of 77 [place] 128 QRS is [address]TC [address] No acute [address] elevation depression noted. MDM Narrative Medical decision making narrative: 37-year-old female with history of sporadic mild asthma. Patient has had worsening over last several months. Patient is quite wheezy on examination, she has not hypoxic but is little tachypneic. Received 3 albuterol nebs [id number] had some improvement but continues to be quite wheezy. Received Solu-Medrol 125, magnesium and 10 mg additional albuterol. Labs show white count of 10.5 hemoglobin of 14 platelets of 317. INR 0.9 D-dimer is negative at less than 215. Sodium is 139 potassium 3.8 chloride 110, CO2 is 22, BUN 10 creatinine 0.58 LFTs, are negative troponins negative BNP is 111. COVID/influenza/RSV swab is negative On recheck patient wheeze is resolved. She feels improved as well. He does feel jittery all the albuterol. Discussed need for follow-up, will prescribe rate inhaler to see if this is helpful to use regularly. She states she does understand she should use it whether she is having symptoms were asymptomatic. Also discussed return precautions all questions answered. Discharge Plan Departure Patient Disposition: Home Clinical Impression: Asthma exacerbation Activity Restrictions/Additional Instructions: Follow-up for recheck with primary care. Contact is included for several new primary care physician who are taking new patients. Please call tomorrow to set up an appointment. Take steroids daily until gone. Continue with your albuterol every 4-6 hours as needed. Use spacer with your albuterol inhaler. I would recommend taking loratadine (claritin) 10 mg [id number] daily. Prescription sent to [facility]. Please return for increasing chest pain, tightness, wheezing, if you are requiring albuterol more than every 4 hours, fevers, lightheadedness or passing out, persistent vomiting new swelling in extremities or other new or concerning changes. Prescriptions: New albuterol sulfate 90 mcg/actuation HFA aerosol inhaler 2 puff inhalation Q4-6H PRN (Reason: shortness of breath or wheezing) Qty: 8.5 0RF fluticasone propion-salmeterol [Advair Diskus] 250-50 mcg/dose blister with device 1 inh inhalation BID Qty: 60 0RF prednisone 20 mg tablet 40 mg PO DAILY 5 Days Qty: 10 0RF No Action benzonatate 200 mg capsule 200 mg PO BID PRN (Reason: cough) Qty: 30 0RF levothyroxine 175 mcg tablet 175 mcg PO DAILY Qty: 90 3RF fluconazole [Diflucan] 200 mg tablet 200 mg PO DAILY Qty: 1 1RF albuterol sulfate 90 mcg/actuation HFA aerosol inhaler 1 - 2 puff PO Q4-6H PRN (Reason: for wheezing) Qty: 8.5 0RF albuterol sulfate 2.5 mg /3 mL (0.083 %) solution for nebulization 2.5 mg inhalation Q4H PRN (Reason: bronchospasm) Qty: 75 0RF triamcinolone acetonide 0.025 % cream 1 applic topical BID Qty: 15 1RF lorazepam 0.5 mg tablet PO dextroamphetamine-amphetamine 10 mg tablet 1 tab PO 3XD sertraline 100 mg tablet 100 mg PO DAILY fluticasone propion-salmeterol [Advair Diskus] 250-50 mcg/dose blister with device 1 inh inhalation BID Qty: 60 2RF Referrals: Christine Claros PA-C [Primary Care Provider] - Stand Alone Forms: Patient Portal/API
[2023-09-19 17:44] LABS: Lactate (Lactic Acid) 0.7 mmol/L (0.7-2.1)
[2023-09-19 17:45] LABS: Alanine Aminotransferase 14 IU/L (<35); Albumin 4.5 g/dL (3.5-5.0); Albumin Globulin Ratio 1.5 (1.0-2.8); Alkaline Phosphatase 76 U/L (38-126); Aspartate Aminotransferase 23 IU/L (14-36); BUN Creatinine Ratio 17.2 (6-22); Bilirubin Total 0.8 mg/dL (0.2-1.3); Blood Urea Nitrogen 10 mg/dL (7-17); Calcium 9.2 mg/dL (8.4-10.2); Carbon Dioxide 22 mmol/L (22-32); Chloride 110 mmol/L (98-107); Estimated Glomerular Filt Rate > 60 mL/min (>60); Glucose 85 mg/dL (70-100); HEMOLYSIS < 15 (0-50); Potassium 3.8 mmol/L (3.4-5.1); Sodium 139 mmol/L (137-145); Total Protein 7.5 g/dL (6.3-8.2)
[2023-09-19] MEDS: KETOROLAC 30 MG/ML VIAL 15 MG IV (17:55)
[2023-09-19 17:57] LABS: D Dimer < 215 ng/ml (<500); NT-proBNP (BNP-Adult 18+) 111 pg/mL (<125); Troponin I < 0.012 ng/mL (0.01-0.034)
[2023-09-19] MEDS: MAGNESIUM SULFATE 2 GM/50 ML PIGGYBACK IV (17:59)
[2023-09-19] MEDS: ALBUTEROL 2.5 MG/3 ML NEB (ADULT) 10 MG INH (18:02)
== END 2023-09-19 19:32 | disposition home or self-care (01) ==
PROVIDERS: Emergency Provider Emergency Medicine; Family Provider Physician Assistant; PCP Physician Assistant
DX: J45.901 Unspecified asthma with (acute) exacerbation (principal); Z20.822 Contact with and (suspected) exposure to COVID-19
CPT/HCPCS: 0241U; 36415; 71045; 80053; 83605; 83880; 84484; 85025; 85379; 85610; 93005; 93010; 94150; 94640; 96374; 96375; 99284; J1885; J2919; J3475; J7613

== ENCOUNTER → 2023-09-21 15:24 | Outpatient (CLI) | payer OTHER, MEDICAID, SELFPAY ==
[2023-09-21 16:57] LABS: Alanine Aminotransferase 23 IU/L (<35); Albumin 4.6 g/dL (3.5-5.0); Albumin Globulin Ratio 1.4 (1.0-2.8); Alkaline Phosphatase 69 U/L (38-126); Aspartate Aminotransferase 35 IU/L (14-36); BUN Creatinine Ratio 24.2 (6-22); Bilirubin Total 0.6 mg/dL (0.2-1.3); Blood Urea Nitrogen 15 mg/dL (7-17); Calcium 9.5 mg/dL (8.4-10.2); Carbon Dioxide 24 mmol/L (22-32); Chloride 108 mmol/L (98-107); Estimated Glomerular Filt Rate > 60 mL/min (>60); Globulin 3.4 g/dL (1.7-4.1); Glucose 80 mg/dL (70-100); HEMOLYSIS < 15 (0-50); Potassium 3.5 mmol/L (3.4-5.1); Sodium 140 mmol/L (137-145)
[2023-09-27 17:37] LABS: Free T4, Direct Thyroxine 0.85 ng/dL (0.78-2.19)
== END ==
PROVIDERS: Family Provider Physician Assistant; PCP Nurse Practitioner Family; Referring Provider Nurse Practitioner Family; Visit Provider Nurse Practitioner Family
DX: F41.9 Anxiety disorder, unspecified (principal); Z86.2 Personal history of diseases of the blood and blood-forming organs and certain disorders involving the immune mechanism
CPT/HCPCS: 36415; 80053; 84439; 84443

== ENCOUNTER 2023-09-26 05:03 | Emergency (ER) | payer OTHER, MEDICAID, SELFPAY ==
[2023-09-26] VITALS (10 sets, daily range): BP systolic 125–147; BP diastolic 86–113; PULSE 59–103; RESP 17; TEMP 36.3–36.6; O2SAT 96–98; BMI 21.9
--- NOTE | 2023-09-26 05:16 | ED_ITS ---
HPI - Abdominal Pain General Chief Complaint: Abdominal Pain Stated Complaint: abd pain Time Seen by Provider: 09/26/23 05:08 History of Present Illness HPI narrative: 37-year-old female with history of asthma, anxiety and depression presents by private vehicle from home for 1 week of left upper and left lower quadrant abdominal pain with nausea and vomiting. Patient has been taking Tums at home without relief of symptoms. Patient states that she thinks she may have an ulcer and is concerned that her pain is not going away. Denies history of abdominal surgeries. Has never had an endoscopy or colonoscopy Related Data Home Medications Medication Instructions Recorded Confirmed sertraline 100 mg tablet 100 mg PO DAILY 04/27/23 09/21/23 qfbevsf-zzxprosjiqavf-swywxane 250 2 tab PO Q6H PRN 09/21/23 09/21/23 mg-250 mg-65 mg tablet (Excedrin Extra Strength) clonazepam 1 mg tablet 1 mg PO BEDTIME PRN anxiety 09/21/23 09/21/23 dextroamphetamine-amphetamine 10 See Rx Instructions PO DAILY 09/21/23 09/21/23 mg tablet loratadine 10 mg tablet (Claritin) 10 mg PO DAILY 09/21/23 09/21/23 prednisone 20 mg tablet 20 mg PO DAILY 09/21/23 09/21/23 Previous Rx's Medication Instructions Recorded levothyroxine 175 mcg tablet 175 mcg PO DAILY #90 tabs 04/15/23 albuterol sulfate 90 mcg/actuation 2 puff inhalation Q4-6H PRN 09/19/23 aerosol inhaler shortness of breath or wheezing #8.5 grams fluticasone 250 mcg-salmeterol 50 1 inh inhalation BID #60 ea 09/19/23 mcg/dose blistr powdr for inhalation (Advair Diskus) famotidine 20 mg tablet 20 mg PO BID #30 tabs 09/26/23 hydrocodone 5 mg-acetaminophen 325 1 tab PO Q8H PRN pain #14 tabs 09/26/23 mg tablet pantoprazole 40 mg tablet,delayed 40 mg PO DAILY #30 tabs 09/26/23 release (Protonix) sucralfate 1 gram tablet (Carafate) 1 g PO QACHS #30 tabs 09/26/23 Allergies Allergy/AdvReac Type Severity Reaction Status Date / Time No Known Drug Allergies Allergy Verified 09/21/23 13:59 Review of Systems Review of Systems Narrative: See HPI Patient History Medical History Eczema (~2020) Chronic back pain (~2011) Chicken pox (~1992) Ruptured tympanic membrane History of recurrent ear infection (~1984) Hearing loss Perforation of right tympanic membrane due to otitis media Nightmares Dyshidrotic hand dermatitis Hyperthyroidism Right otitis media with effusion Urinary tract infection (~2014) Pneumonia Exercise-induced asthma Hypothyroid (~2001) Migraine (~2009) Bipolar 1 disorder (~2016) Anxiety (~2004) Depression (~2004) Corneal abrasion, right (~2017) Conjunctivitis Corneal abrasion, left (~2017) Pyelonephritis (~2014) Vasovagal syncope (~2009) Surgical History History of skin graft Adverse effect of anesthesia Ganglion cyst of dorsum of left wrist (~2012) History of discectomy (~2014) History of placement of ear tubes (~1989) History of adenoidectomy (~2001) Hx of tonsillectomy (~2003) History of tympanoplasty of right ear (~2017) Family History Mother Stroke Leukemia Breast cancer Father Depression Hypothyroid Bipolar 1 disorder Anxiety Grandmother Stroke Myocardial infarct Grandfather Congestive heart failure Grandmother Parkinson's disease Grandfather Congestive heart failure Leukemia Brother Asthma Brother No problems noted. 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) current occupational exposures/hazards: No special jen needs: No travel history: over 6 months ago leisure activities: exercise seatbelt use: always water heater temp set < 120 deg: Yes working smoke detector in home: Yes fire extinguisher in home: Yes carbon monox detector in home: Yes firearms in home: No do you feel safe at home: Yes Smoking Status: Former smoker second hand exposure: No alcohol intake: former (rarely, only when not ) substance use type: marijuana (not while ) during the past year weight has: other (still losing baby weight) well-balanced diet: daily or most days daily servings fruits/ve-4 caffeine: Yes (Aware of 200mg limit) Type(s) of exercise: walking and bicycling frequency: daily Smoking Status: Former smoker tobacco type: vaping alcohol intake frequency: holidays/special occasions only Substance Use Type: marijuana Exam Narrative Exam Narrative: Const: Awake, alert, uncomfortable Cardiac: regular rate, regular rhythm RESP: unlabored, clear bilaterally, no wheezing GI: Soft, left upper and left lower quadrant tenderness to deep palpation, no rebound or guarding Skin: Warm, Dry, intact, no rashes Neuro: AO x3, CN II-XII grossly intact, moves all extremities Initial Vital Signs Initial Vital Signs: Vital Signs Pulse Rate 102 H 09/26/23 05:08 Blood Pressure 147/113 H 09/26/23 05:08 Pulse Oximetry 96 09/26/23 05:08 Course Orders Ordered: ED Orders 09/26/23 EKG-12 Lead Routine 09/26/23 05:13 CBC Auto Diff [Complete Blood Count AUTO DIFF] Stat CMP [Comprehensive Metabolic Panel] Stat Lipase Stat Test Serum,Qual Stat 09/26/23 05:16 CT abdomen pelvis w con Stat Sodium Chloride (Normal Saline 0.9%) 1,000 mls @ 1,000 mls/hr IV BOLUS ONE Stop: 09/26/23 07:32 Last Admin: 09/26/23 06:35 Dose: 1,000 mls/hr Documented By: CARLTON Discontinued Medications Acetaminophen (Acetaminophen 325 Mg Tablet) 975 mg PO NOW ONE Stop: 09/26/23 05:28 Last Admin: 09/26/23 05:50 Dose: 975 mg Documented By: CARLTON Al Hydrox/Mg Hydrox/Simethicone (Mag Hydrox/Alum/Simeth 30 Ml Udc) 30 ml PO NOW ONE Stop: 09/26/23 05:28 Last Admin: 09/26/23 05:47 Dose: 30 ml Documented By: CARLTON Sodium Chloride (Normal Saline 0.9%) 1,000 mls @ 1,000 mls/hr IV BOLUS ONE Stop: 09/26/23 06:14 Last Infusion: 09/26/23 06:41 Dose: Infused Documented By: Admin: 09/26/23 05:21 Dose: 1,000 mls/hr Documented By: CARLTON Lidocaine HCl (Lidocaine Viscous 2% 15 Ml Solution) 15 ml PO NOW ONE Stop: 09/26/23 05:28 Last Admin: 09/26/23 05:48 Dose: 15 ml Documented By: CARLTON Morphine Sulfate (Morphine 4 Mg/Ml Inj) 4 mg IV NOW ONE Stop: 09/26/23 05:16 Last Admin: 09/26/23 06:30 Dose: Not Given Documented By: CARLTON Ondansetron HCl (Ondansetron 4 Mg/2 Ml Inj) 4 mg IV NOW ONE Stop: 09/26/23 05:16 Last Admin: 09/26/23 05:21 Dose: 4 mg Documented By: CARLTON Sucralfate (Sucralfate 1 Gm/10 Ml Oral Susp) 1 gm PO NOW ONE Stop: 09/26/23 05:29 Last Admin: 09/26/23 05:49 Dose: 1 gm Documented By: CARLTON Vital Signs Vital signs: Vital Signs - 8 hr 09/26/23 05:08 09/26/23 05:08 09/26/23 05:13 Temperature 97.3 F L Pulse Rate 102 H 103 H Respiratory Rate 17 Blood Pressure 147/113 H 147/113 H Pulse Oximetry 96 96 Oxygen Delivery Method Room Air 09/26/23 05:30 09/26/23 05:30 09/26/23 06:00 Temperature Pulse Rate 64 59 L Respiratory Rate Blood Pressure 127/87 Pulse Oximetry 96 98 Oxygen Delivery Method 09/26/23 06:30 09/26/23 06:32 09/26/23 06:32 Temperature Pulse Rate 66 65 Respiratory Rate Blood Pressure 125/86 Pulse Oximetry 97 97 Oxygen Delivery Method MDM - Abdominal Pain Lab Data 09/26/23 05:13 09/26/23 05:13 Labs: Lab Results 09/26/23 Range/Units 05:13 WBC 14.3 H (4.5-11.0) X10^3/uL RBC 5.67 H (4.0-5.2) X10^6/uL Hgb 16.9 H (12.0-16.0) g/dL Hct 50.0 H (36-46) % MCV 88.3 (80-100) fL MCH 29.7 (26-34) PG MCHC 33.7 (30-36) % RDW 13.7 (11.6-14.8) % Plt Count 420 H (150-400) X10^3/uL Neut % (Auto) 49.7 L (50-75) % Lymph % (Auto) 37.5 (25-40) % [place] % (Auto) 7.0 (3-14) % Eos % (Auto) 5.0 H (2-4) % Baso % (Auto) 0.8 (0-2) % Neut # (Auto) 7100 H (8573-1539) /uL Lymph # (Auto) 5400 H (1208-9884) /uL [place] # (Auto) 1000 H (0-900) /uL Eos # (Auto) 700 H (0-450) /uL Baso # (Auto) 100 (0-100) /uL Sodium 136 L (137-145) mmol/L Potassium 4.3 (3.4-5.1) mmol/L Chloride 101 (98-107) mmol/L Carbon Dioxide 30 (22-32) mmol/L BUN 17 (7-17) mg/dL Creatinine 0.65 (0.52-1.04) mg/dL Estimated GFR > 60 (>60) mL/min BUN/Creatinine Ratio 26.2 H (6-22) Glucose 92 (70-100) mg/dL Calcium 10.5 H (8.4-10.2) mg/dL Total Bilirubin 1.2 (0.2-1.3) mg/dL AST 22 (14-36) IU/L ALT 24 (<35) IU/L Alkaline Phosphatase 72 (38-126) U/L Total Protein 7.9 (6.3-8.2) g/dL Albumin 4.5 (3.5-5.0) g/dL Globulin 3.4 (1.7-4.1) g/dL Albumin/Globulin Ratio 1.3 (1.0-2.8) Lipase 1720 H (23-300) U/L HCG, Quant Cancelled Serum , Qual Negative (Negative) MDM Narrative Medical decision making narrative: One week of left-sided abdominal pain with nausea and vomiting. Patient does appear to be quite uncomfortable, tenderness to palpation in left upper and left lower quadrants. Patient was concerned that she may have an ulcer. I explained that an ulcer would very likely not be able to be detected in the emergency department, but we will order labs and CT imaging to assess for other acute causes of patient's reported symptoms. Pain and nausea medications ordered. 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 Tylenol ordered instead. Plan to avoid Toradol due to patient's concern for gastric ulcer. Laboratory work significant for leukocytosis WBC count 14.3, hemoglobin 16.9, platelets 420, Lipase 1720. Leukocytosis is likely secondary to slight volume depletion, in addition patient recently completed a 5 day course of [address] of the abdomen and pelvis shows no imaging findings of pancreatitis. She does have fatty infiltration of her liver, but liver enzymes are within normal limits. It was noted that patient has posterior findings concerning for pulmonary infection, however she has no respiratory symptoms. Patient reassessed, she states that the pain has been improved with Tylenol and she feels better. Patient informed of lab and imaging findings including the elevated lipase. Recommended light diet, as well as follow up with General surgery or GI to see if an endoscopy is warranted for her abdominal pain. Course of pain medication sent to pharmacy of choice. Patient will also be started on antacids and Carafate. Discharge Plan Departure Patient Disposition: Home Clinical Impression: Abdominal pain, Elevated lipase Instructions: DI for Abdominal Pain-Adult Activity Restrictions/Additional Instructions: Follow a light diet for the next several days. Take the medications prescribed and follow up with the specialist to see if you need an endoscopy. The pain medications prescribed may cause constipation, take a daily stool softener Prescriptions: New hydrocodone-acetaminophen 5-325 mg tablet 1 tab PO Q8H PRN (Reason: pain) Qty: 14 0RF pantoprazole [Protonix] 40 mg tablet,delayed release (DR/EC) 40 mg PO DAILY Qty: 30 0RF famotidine 20 mg tablet 20 mg PO BID Qty: 30 0RF sucralfate [Carafate] 1 gram tablet 1 g PO QACHS Qty: 30 0RF No Action levothyroxine 175 mcg tablet 175 mcg PO DAILY Qty: 90 3RF clonazepam 1 mg tablet 1 mg PO BEDTIME PRN (Reason: anxiety) Rx Instructions: administer 30 minutes before bedtime prednisone 20 mg tablet 20 mg PO DAILY loratadine [Claritin] 10 mg tablet 10 mg PO DAILY Excedrin Extra Strength 250-250-65 mg tablet 2 tab PO Q6H PRN albuterol sulfate 90 mcg/actuation HFA aerosol inhaler 2 puff inhalation Q4-6H PRN (Reason: shortness of breath or wheezing) Qty: 8.5 0RF fluticasone propion-salmeterol [Advair Diskus] 250-50 mcg/dose blister with device 1 inh inhalation BID Qty: 60 0RF dextroamphetamine-amphetamine 10 mg tablet See Rx Instructions PO DAILY Rx Instructions: 1.5 to 2 tabs orally daily; sertraline 100 mg tablet 100 mg PO DAILY Referrals: Miguel José MD [Physician] - Vicky Power FNP-BC [Primary Care Provider] - Stand Alone Forms: Patient Portal/API
--- NOTE | 2023-09-26 05:16 | DI.CT.S_ITS ---
PROCEDURE: CT ABDOMEN PELVIS W CON INDICATIONS: L UPPER AND LOWER ABD PAIN, N/V TECHNIQUE: After the administration of intravenous contrast, axial sections acquired from the lung bases to the pubic symphysis. Coronal and sagittal reformats were performed. For radiation dose reduction, the following was used: automated exposure control, adjustment of mA and/or kV according to patient size. COMPARISON: None. FINDINGS: Image quality: Diagnostic. Lower Chest: Subtle posterior bibasilar small areas of ground-glass opacities, suggesting probable alveolar pulmonary infection. Normal heart size. ABDOMEN: Liver: Mild hepatomegaly, very mild diffuse hepatic steatosis. No focal mass. Gallbladder: No radiopaque gallstones or wall thickening. Biliary ducts: No biliary dilation. Pancreas: No ductal dilation. Spleen: Size is within normal limits. Adrenal Glands: No adrenal nodules. Kidneys and Ureters: No hydronephrosis. No solid mass. No complex renal cystic lesion which requires follow up. Stomach and Bowel: Normal colonic caliber, without significant wall thickening. Moderate fecal debris. Peritoneum: No abnormal intraperitoneal fluid. No free air. Ventral Wall: No significant ventral hernia. Abdominal Nodes: No retroperitoneal or mesenteric adenopathy by size criteria. Vessels: Aorta and inferior vena cava are normal in size. PELVIS: Pelvic Organs: Unremarkable. Bladder: No bladder wall thickening, accounting for underdistention. Pelvic Nodes: No enlarged lymph nodes. Miscellaneous: No inguinal hernias are seen. Bones: No aggressive osseous abnormality. IMPRESSION: 1. Small focal posterior bibasilar ground-glass opacities bilaterally suggest probable alveolar pulmonary infection. 2. Mild diffuse hepatic steatosis, mild hepatomegaly. 3. Moderate fecal debris. 4. No acute abdominal process. Comment: Final report is concordant with preliminary interpretation provided by [facility]. Dictated by: Dru Granda M.D. on 09/26/2023 at 8:09 Approved by: Dur Granda M.D. on 09/26/2023 at 8:19
[2023-09-26] MEDS: SODIUM CHLORIDE 0.9% 1,000 ML 1000 ML IV ×2 (05:21→06:35)
[2023-09-26] MEDS: ONDANSETRON 4 MG/2 ML INJ IV (05:21)
[2023-09-26 05:23] LABS: Add Manual Diff / Slide Review NO; Basophils Absolute Auto 100 /uL (0-100); Basophils Percent Auto 0.8 % (0-2); Eosinophils Absolute Auto 700 /uL (0-450); Hemoglobin 16.9 g/dL (12.0-16.0); Lymphocytes Absolute Auto 5400 /uL (1100-4500); Lymphocytes Percent Auto 37.5 % (25-40); Mean Corpuscular HGB Conc 33.7 % (30-36); Mean Corpuscular Hemoglobin 29.7 PG (26-34); Mean Corpuscular Volume 88.3 fL (80-100); Monocytes Absolute Auto 1000 /uL (0-900); Neutrophils Absolute Auto 7100 /uL (1500-7000); Neutrophils Percent Auto 49.7 % (50-75); Platelet Count 420 X10^3/uL (150-400); Red Blood Cell Count 5.67 X10^6/uL (4.0-5.2); Red Cell Distribution Width 13.7 % (11.6-14.8); White Blood Cell Count 14.3 X10^3/uL (4.5-11.0)
[2023-09-26 05:32] LABS: Alanine Aminotransferase 24 IU/L (<35); Albumin 4.5 g/dL (3.5-5.0); Albumin Globulin Ratio 1.3 (1.0-2.8); Alkaline Phosphatase 72 U/L (38-126); Aspartate Aminotransferase 22 IU/L (14-36); BUN Creatinine Ratio 26.2 (6-22); Bilirubin Total 1.2 mg/dL (0.2-1.3); Blood Urea Nitrogen 17 mg/dL (7-17); Calcium 10.5 mg/dL (8.4-10.2); Carbon Dioxide 30 mmol/L (22-32); Chloride 101 mmol/L (98-107); Estimated Glomerular Filt Rate > 60 mL/min (>60); Globulin 3.4 g/dL (1.7-4.1); Glucose 92 mg/dL (70-100); HEMOLYSIS < 15 (0-50); Lipase 1720 U/L (23-300); Potassium 4.3 mmol/L (3.4-5.1); Sodium 136 mmol/L (137-145); Total Protein 7.9 g/dL (6.3-8.2)
[2023-09-26 05:42] LABS: Pregnancy Test Serum,Qual Negative (Negative)
[2023-09-26] MEDS: MAG HYDROX/ALUM/SIMETH 30 ML UDC PO (05:47)
[2023-09-26] MEDS: LIDOCAINE VISCOUS 2% 15 ML SOLUTION PO (05:48)
[2023-09-26] MEDS: SUCRALFATE 1 GM/10 ML ORAL SUSP PO (05:49)
[2023-09-26] MEDS: ACETAMINOPHEN 325 MG TABLET 975 MG PO (05:50)
== END 2023-09-26 07:50 | disposition home or self-care (01) ==
PROVIDERS: Emergency Provider Emergency Medicine; Family Provider Physician Assistant; PCP Nurse Practitioner Family
DX: R10.32 Left lower quadrant pain (principal); R10.12 Left upper quadrant pain; R74.8 Abnormal levels of other serum enzymes; R11.2 Nausea with vomiting, unspecified; K76.0 Fatty (change of) liver, not elsewhere classified
CPT/HCPCS: 36415; 74177; 80053; 83690; 84703; 85025; 93005; 96361; 96374; 99284; J2405; Q9967

== ENCOUNTER 2023-10-17 07:47 | Day surgery (SDC) | payer OTHER, MEDICAID, SELFPAY ==
--- NOTE | 2023-10-17 | PATH_ITS ---
[facility] Accession Number: [id number] No. of containers..07 Tissue . 01 Material submitted: . PART A: duodenum - DUODENUM PART B: gastrointestinal site - ANTRUM PART C: small bowel - TERMINAL ILEUM PART D: colon - RIGHT COLON PART E: colon - TRANSVERSE COLON PART F: rectum - RECTUM PART G: colon - LEFT COLON . 01 Diagnosis: Part A: DUODENUM: Duodenal mucosa with no diagnostic alterations. No active inflammation and no evidence of celiac disease. . Part B: ANTRUM: Gastric mucosa with minimal chronic inflammation. No Helicobacter organisms identified. No intestinal metaplasia, dysplasia, or malignancy identified. . Part C: TERMINAL ILEUM: Ileal mucosa with no diagnostic alterations. No active inflammation, granulomas, or dysplasia identified. . Part D: RIGHT COLON: Colonic mucosa with no diagnostic alterations. No active inflammation, granulomas, dysplasia, or malignancy identified. . Part E: TRANSVERSE COLON: Colonic mucosa with no diagnostic alterations. No active inflammation, granulomas, dysplasia, or malignancy identified. . Part F: RECTUM: Colonic mucosa with focal small non-caseating granulomas, with no other diagnostic alterations. No active inflammation infectious organisms, dysplasia, or malignancy identified. See comment. . Specimen Comments: Several small non-caseating granulomas are seen in the lamina propria in one biopsy fragment. No infectious organisms are seen. No acid-fast bacilli or fungal organisms are seen with AFB or GMS stains, respectively; controls stain as expected. . The presence of focal granulomas raises a broad differential including infectious etiologies, drug-induced changes, foreign-body granuloma formation at a site of prior erosion, or possibly involvement by Crohn's disease, among other possibilities. Crohn's is not favored, in the absence of other histologic changes suggestive of chronicity, such as basal lymphoplasmacytosis are crypt architectural distortion. In addition, no active neutrophilic inflammation is seen. The finding may be idiopathic. . Correlation with clinical features and with the endoscopic appearance is needed for further evaluation. . Part G: LEFT COLON: Colonic mucosa with no diagnostic alterations. No active inflammation, granulomas, dysplasia, or malignancy identified. [facility] 10/26/2023 1635 Local . 01 Electronically signed: . Hernesto Turner MD, Pathologist NPI- [id number] . 01 Gross description: . Part A: DUODENUM: Received in formalin are 3 fragment(s) of vanegas, soft tissue measuring 0.2 x 0.2 x 0.2 cm to 0.4 x 0.2 x 0.2 cm submitted entirely in 1 cassette(s) . Part B: ANTRUM: Received in formalin are 3 fragment(s) of vanegas, soft tissue measuring 0.2 x 0.2 x 0.2 cm to 0.3 x 0.3 x 0.2 cm submitted entirely in 1 cassette(s) . Part C: TERMINAL ILEUM: Received in formalin are 2 fragment(s) of vanegas, soft tissue measuring 0.2 x 0.2 x 0.2 cm to 0.3 x 0.2 x 0.2 cm submitted entirely in 1 cassette(s) . Part D: RIGHT COLON: Received in formalin are 2 fragment(s) of vanegas, soft tissue measuring 0.2 x 0.2 x 0.2 cm to 0.4 x 0.2 x 0.2 cm submitted entirely in 1 cassette(s) . Part E: TRANSVERSE COLON: Received in formalin are 2 fragment(s) of vanegas, soft tissue measuring 0.1 x 0.1 x 0.1 cm to 0.2 x 0.2 x 0.2 cm submitted entirely in 1 cassette(s) . Part F: RECTUM: Received in formalin are 3 fragment(s) of vanegas, soft tissue measuring 0.1 x 0.1 x 0.1 cm to 0.3 x 0.1 x 0.1 cm submitted entirely in 1 cassette(s) . Part G: LEFT COLON: Received in formalin are 2 fragment(s) of vanegas, soft tissue measuring 0.1 x 0.1 x 0.1 cm to 0.3 x 0.3 x 0.2 cm submitted entirely in 1 cassette(s) /[facility]HEL[facility] 10/26/2023 [facility] Local . 01 Microscopic: . Part B: ANTRUM: An immunohistochemical stain was performed to evaluate for Helicobacter organisms and is negative. The control stains appropriately. * This test was developed and its performance characteristics determined by [facility]. It has not been cleared or approved by the U.S. Food and Drug Administration. The FDA has determined that such clearance or approval is not necessary. This test is used for clinical purposes. It should not be regarded as investigational or for research. . 01 Pathologist provided ICD-10: K29.30, K63.89, R10.9 . 01 CPT . 129261, 147989, 659308, 584209, 046969, 554261, 074651, [id number], [id number], [id number] Specimen Comment: A courtesy copy of this report has been sent to [phone] Performed at: 01 [facility] [address] [place] [address], [place], [place] [id number] MD Hernesto Turner MD Phone: [phone]
--- NOTE | 2023-10-17 08:18 | PM.PREOP ---
Pre-operative Note COVID-19 COVID-19 status: Not tested Interval Note History & Physical reviewed/Exam performed by Physician: Yes Changes to H&P: No ASA Class (for procedural sedation): II
[2023-10-17 08:26] VITALS: BP 97/64; PULSE 73; RESP 16; TEMP 36.1; O2SAT 98
[2023-10-17] MEDS: LACTATED RINGERS 1,000 ML 42 ML IV (08:31)
[2023-10-17 09:30] VITALS: BP 108/69; PULSE 73; RESP 16; O2SAT 99
--- NOTE | 2023-10-17 09:32 | PM.OP.EC ---
Operative Date/Time/Diagnoses Date of procedure: 10/17/23 Time of procedure: 09:32 Pre-op diagnosis: Abdominal pain Post-op diagnosis: same Procedure & Clinicians Study performed: EGD and colonoscopy Same procedure as scheduled: Yes Surgeon: Miguel José Procedure Notes Procedure in detail: Surgeon: Miguel José MD Anesthesia: Kenna Ibarra DO Procedure in detail: A timeout was performed. A bite blocked was placed and monitors were attached to the patient. The patient was positioned in the left lateral decubitus position. Sedation was administered. Once the patient was sedated the endoscope was inserted through the bite block and passed through the esophagus and stomach and into the duodenum. Random biopsies were taken from the duodenum with cold forceps. We then withdrew the scope into the stomach. No obvious abnormalities were noted but random biopsies were taken from the antrum with cold forceps. The endoscope was retroflexed and no other abnormalities were seen. The endoscope was straightned and withdrawn into the esophagus. No abnormalities were seen. EGD findings: Grossly normal EGD Next we repositioned the patient for a colonoscopy. A digital rectal exam was performed and was normal. The colonoscope was inserted and advanced to the cecum. The appendiceal orifice was identified and photographed. The terminal ileum was intubated and no abnormalities were noted. Random biopsies were taken with cold forceps. The scope was slowly withdrawn over greater than 6 minutes. No other abnormalities were noted. Random biopsies were taken from the right colon, transverse colon, left colon and rectum with cold forceps biopsies. The scope was retroflexed in the rectum and no other abnormalities were noted. Colonoscopy findings: Normal colonoscopy Total procedural EBL: 5 mL Scope withdrawal time: 12 minutes Sedation minutes: 33 minutes Post-procedure Recommendations: Colonscopy in 10 years Disposition: PACU
[2023-10-17 09:40] VITALS: BP 114/54; PULSE 92; RESP 17; O2SAT 100
[2023-10-17 09:44] VITALS: BP 116/79; PULSE 63; RESP 10; TEMP 36.1; O2SAT 100
--- NOTE | 2023-10-17 09:58 | SUR.PHASEII ---
Pt reports pain left eye upon opening. Left eye erythematous. NS drops applied.
[2023-10-17 10:30] VITALS: BP 127/73; PULSE 78; RESP 12; O2SAT 99
--- NOTE | 2023-10-17 10:32 | SUR.PHASEI ---
Patient left eye teary and red in PACU. Dr. Ibarra notified. Saline drops provided per .
== END 2023-10-17 10:15 | disposition home or self-care (01) ==
PROVIDERS: Family Provider Physician Assistant; PCP Nurse Practitioner Family; Referring Provider Surgery; Visit Provider Surgery
PROC: 0DJ08ZZ Inspection of Upper Intestinal Tract, Via Natural or Artificial Opening Endoscopic (ICD-10-PCS; CPT 43235; principal; 2023-10-17 08:45)
PROC: 0DJD8ZZ Inspection of Lower Intestinal Tract, Via Natural or Artificial Opening Endoscopic (ICD-10-PCS; CPT 45378; 2023-10-17 08:45)
DX: R10.12 Left upper quadrant pain (principal); K29.50 Unspecified chronic gastritis without bleeding
CPT/HCPCS: 45380; 43239; 81025; J2704

== ENCOUNTER → 2023-10-25 13:43 | Outpatient (CLI) | payer OTHER, MEDICAID, SELFPAY ==
--- NOTE | 2023-10-25 13:44 | DI.RAD.S_ITS ---
PROCEDURE: XR LUMBAR SPINE MIN 4V INDICATIONS: LOW BACK PAIN TECHNIQUE: 5 views of the lumbar spine were acquired, including bilateral oblique views. COMPARISON: None. FINDINGS: Bones: 5 nonrib-bearing vertebrae are present. There is normal bony alignment. No vertebral body compression fractures. No suspicious bony lesions. Moderate degenerative disc disease at L4-L5 and L5-S1. Mild facet arthropathy at L3-L4, L4-L5 and L5-S1. Soft tissues: Overlying bowel gas pattern is normal. No suspicious soft tissue calcifications. Oblique images: No pars defects. IMPRESSION: Multilevel degenerative disc and facet disease as described. Dictated by: Radhika Foster M.D. on 10/26/2023 at 9:39 Approved by: Radhika Foster M.D. on 10/26/2023 at 9:41
== END ==
PROVIDERS: Family Provider Physician Assistant; PCP Nurse Practitioner Family; Referring Provider Anesthesiology; Visit Provider Anesthesiology
DX: M47.816 Spondylosis without myelopathy or radiculopathy, lumbar region (principal); M47.817 Spondylosis without myelopathy or radiculopathy, lumbosacral region; M51.36 Other intervertebral disc degeneration, lumbar region; M51.37 Other intervertebral disc degeneration, lumbosacral region; M54.9 Dorsalgia, unspecified; G89.29 Other chronic pain
CPT/HCPCS: 72110

== ENCOUNTER → 2023-10-26 14:39 | Outpatient (CLI) | payer OTHER, MEDICAID, SELFPAY | PROVIDERS: Family Provider Physician Assistant; PCP Nurse Practitioner Family; Referring Provider Internal Medicine; Visit Provider Internal Medicine | DX: R06.02 Shortness of breath (principal); R94.2 Abnormal results of pulmonary function studies | CPT/HCPCS: 94060; 94726; 94729 ==

== ENCOUNTER → 2023-11-21 14:50 | Outpatient (CLI) | payer OTHER, MEDICAID, SELFPAY ==
[2023-11-21 16:11] LABS: TSH w/ Reflex to FT4 < 0.02 uIU/mL (0.47-4.68)
== END ==
PROVIDERS: Family Provider Physician Assistant; PCP Nurse Practitioner Family; Referring Provider Nurse Practitioner Family; Visit Provider Nurse Practitioner Family
DX: E03.9 Hypothyroidism, unspecified (principal)
CPT/HCPCS: 36415; 84439; 84443

== ENCOUNTER → 2023-12-02 17:26 | Outpatient (CLI) | payer OTHER, MEDICAID, SELFPAY | PROVIDERS: Family Provider Physician Assistant; PCP Nurse Practitioner Family; Visit Provider Nurse Practitioner Family | DX: J02.9 Acute pharyngitis, unspecified (principal) | CPT/HCPCS: 87070 ==

== ENCOUNTER → 2024-01-30 12:10 | Outpatient (CLI) | payer OTHER, MEDICAID, SELFPAY ==
[2024-01-30 14:40] LABS: TSH w/ Reflex to FT4 0.02 uIU/mL (0.47-4.68)
[2024-01-30 15:06] LABS: Free T4, Direct Thyroxine 1.61 ng/dL (0.78-2.19)
== END ==
LOC: LAB 12:12
PROVIDERS: Family Provider Physician Assistant; PCP Nurse Practitioner Family; Referring Provider Nurse Practitioner Family; Visit Provider Nurse Practitioner Family
DX: E03.9 Hypothyroidism, unspecified (principal)
CPT/HCPCS: 36415; 84439; 84443

== ENCOUNTER → 2024-04-16 14:37 | Outpatient (CLI) | payer SELFPAY ==
--- NOTE | 2024-04-16 14:38 | DI.RAD.S_ITS ---
PROCEDURE: XR THORACIC SPINE 2V INDICATIONS: r/o fracture / dislocation / malformations TECHNIQUE: 3 views of the thoracic spine were acquired. FINDINGS: Thoracic spine curvature and alignment: Normal. Bones: There are no osseous abnormalities. Disc spaces: Minimal degenerative disc disease seen throughout the upper midthoracic spine. Soft tissues: No soft tissue swelling, calcification or mass. IMPRESSION: Minimal degenerative disc disease upper midthoracic spine Dictated by: Jose R Rodríguez M.D. on 04/17/2024 at 10:09 Approved by: Jose R Rodríguez M.D. on 04/17/2024 at 10:09
--- NOTE | 2024-04-16 14:38 | DI.RAD.S_ITS ---
PROCEDURE: XR CERVICAL SPINE 2V OR 3V INDICATIONS: r/o fracture / dislocation / malformations TECHNIQUE: Three views (s) of the cervical spine were acquired. COMPARISON: None. FINDINGS: Cervical spine curvature and alignment: Normal. Bones: There are no osseous abnormalities. Disc spaces: Mild C4-5 minimal C5-6 degenerative disc disease noted Soft tissues: No soft tissue swelling, calcification or mass. IMPRESSION: Mild degeneration Dictated by: Jose R Rodríguez M.D. on 04/17/2024 at 10:04 Approved by: Jose R Rodríguez M.D. on 04/17/2024 at 10:05
[2024-04-16 17:36] LABS: TSH w/ Reflex to FT4 1.06 uIU/mL (0.47-4.68)
== END ==
PROVIDERS: Family Provider Physician Assistant; PCP Nurse Practitioner Family; Referring Provider Nurse Practitioner Family; Visit Provider Nurse Practitioner Family
DX: M50.321 Other cervical disc degeneration at C4-C5 level (principal); M54.2 Cervicalgia; E03.8 Other specified hypothyroidism
CPT/HCPCS: 36415; 72040; 72070; 84443

== ENCOUNTER → 2024-04-28 12:06 | Outpatient (CLI) | payer OTHER, MEDICAID, SELFPAY ==
--- NOTE | 2024-04-28 12:08 | DI.RAD.S_ITS ---
PROCEDURE: XR KNEE LT 3V INDICATIONS: Ground level fall TECHNIQUE: 3 views of the knee were acquired. COMPARISON: None. FINDINGS: Bones: No acute displaced fracture or dislocation. Soft tissues: Jidb-gv-jcvuvnwz effusion. IMPRESSION: No acute radiographic abnormality. However there is a hpxu-dh-cjrxdgot effusion. If there is high concern for further derangement, consider MRI evaluation. Dictated by: Sha Buchanan M.D. on 04/29/2024 at 9:09 Approved by: Sha Buchanan M.D. on 04/29/2024 at 9:09
--- NOTE | 2024-04-28 12:08 | DI.RAD.S_ITS ---
PROCEDURE: XR WRIST RT MIN 3V INDICATIONS: Ground level fall TECHNIQUE: 4 views of the wrist were acquired. COMPARISON: None. FINDINGS: Bones: No acute displaced fracture or dislocation no high-grade degenerative changes. Soft tissues: No suspicious calcifications. IMPRESSION: No acute radiographic abnormality. If there is high concern for occult injury, consider repeat radiography or cross-sectional imaging. Dictated by: Sha Buchanan M.D. on 04/29/2024 at 9:09 Approved by: Sha Buchanan M.D. on 04/29/2024 at 9:10
== END ==
PROVIDERS: Family Provider Physician Assistant; PCP Nurse Practitioner Family; Referring Provider Nurse Practitioner Family; Visit Provider Nurse Practitioner Family
DX: S86.912A Strain of unspecified muscle(s) and tendon(s) at lower leg level, left leg, initial encounter (principal); M25.462 Effusion, left knee; M25.521 Pain in right elbow; W18.30XA Fall on same level, unspecified, initial encounter; M25.531 Pain in right wrist
CPT/HCPCS: 73110; 73562

== ENCOUNTER → 2024-07-16 18:39 | Outpatient (CLI) | payer OTHER, SELFPAY ==
[2024-07-16 19:36] LABS: Influenza A - CEPHEID Flu A NEGATIVE (NEGATIVE); Influenza B - CEPHEID Flu B NEGATIVE (NEGATIVE); Respiratory Syncytial Virus Negative (Negative)
[2024-07-16 19:58] LABS: COVID-19 CEPHEID 4-PLEX PCR Negative (Negative)
== END ==
PROVIDERS: Family Provider Physician Assistant; PCP Nurse Practitioner Family; Visit Provider Registered Nurse
DX: R05.1 Acute cough (principal)
CPT/HCPCS: 87635; 87400 ×2; 87420; 0241U

== ENCOUNTER → 2024-10-06 09:52 | Outpatient (CLI) | payer OTHER, SELFPAY ==
--- NOTE | 2024-10-06 09:54 | DI.MG.S_ITS ---
MM screening mammo BI: 10/06/2024. BI-RADS: 1 CLINICAL: 39-year old female for bilateral screening mammogram. Tyrer-Cuzick lifetime risk of 17.9%. Current reported family history of breast cancer: mother. PRIOR EXAMS No prior examinations available. MAMMOGRAPHY TECHNIQUE: 2D and 3D (tomosynthesis) digital mammographic views obtained, with additional images as needed for full coverage. Current study was also evaluated with a Computer Aided Detection (CAD) system. DENSITY B. There are scattered areas of fibroglandular density. MAMMOGRAPHY FINDINGS Bilateral: No suspicious mass, asymmetry, microcalcification, or other abnormality seen. IMPRESSION: * No evidence of malignancy. RECOMMENDATIONS Bilateral * Annual screening mammography. OVERALL ASSESSMENT CATEGORY BI-RADS-1: Negative. [employer] recommends annual screening mammography beginning at age 40 for women with average risk of breast cancer. ELECTRONICALLY SIGNED: Kevin Hunt M.D. on 10/08/2024 at 06:42:02 PM PT Interpreting Station ID: [id number]
--- NOTE | 2024-10-06 09:54 | DI.MRI.S_ITS ---
PROCEDURE: MR LUMBAR SPINE WO CON INDICATIONS: Left L5 Radic Post discectomy TECHNIQUE: Noncontrast sagittal T1 spin echo and T2 fast echo, sagittal STIR, and T2 fast spin echo through the lumbar spine. In cases with scoliosis, additional coronal T2 fast spin echo may be performed. COMPARISON: None. FINDINGS: Image quality: Excellent. Alignment and Curvature: Straightening of the normal lumbar lordosis. Bone Marrow: Marrow is of normal overall signal. No acute vertebral body compression fractures. Spinal Cord: Conus medullaris terminates at the L1-L2 level. Visualized cord demonstrates normal signal and size. Paraspinous Soft Tissues: No paravertebral masses. T12-L1: Normal appearance. L1-L2: Normal appearance. L2-L3: Normal appearance. L3-L4: Normal appearance. L4-L5: Disc desiccation and mild diffuse disc bulge. Mild facet arthropathy. No central canal or neural foraminal stenosis. L5-S1: Disc desiccation and moderate height loss. Mild disc bulge with small superimposed left paracentral disc protrusion. Mild facet arthropathy. Prior postoperative changes. No central canal stenosis. Mild bilateral neural foraminal stenosis. IMPRESSION: Mild degenerative changes of the lower lumbar spine without significant central canal or neural foraminal stenosis. Dictated by: José Miguel Segura M.D. on 10/08/2024 at 12:46 Approved by: José Miguel Segura M.D. on 10/08/2024 at 12:48
== END ==
PROVIDERS: Family Provider Physician Assistant; PCP Nurse Practitioner Family; Referring Provider Physical Medicine & Rehabilitation; Visit Provider Physical Medicine & Rehabilitation
DX: Z12.31 Encounter for screening mammogram for malignant neoplasm of breast (principal); Z80.3 Family history of malignant neoplasm of breast; M47.26 Other spondylosis with radiculopathy, lumbar region
CPT/HCPCS: 72148; 77063; 77067

== ENCOUNTER → 2024-10-24 09:23 | Outpatient (CLI) | payer OTHER, SELFPAY ==
[2024-10-24 10:27] LABS: Add Manual Diff / Slide Review NO; Basophils Absolute Auto 100 /uL (0-100); Basophils Percent Auto 1.2 % (0-2); Eosinophils Absolute Auto 1800 /uL (0-450); Eosinophils Percent Auto 28.6 % (2-4); Hematocrit 39.2 % (36-46); Hemoglobin 13.3 g/dL (12.0-16.0); Lymphocytes Absolute Auto 1300 /uL (1100-4500); Lymphocytes Percent Auto 20.4 % (25-40); Mean Corpuscular HGB Conc 33.9 % (30-36); Mean Corpuscular Hemoglobin 28.9 PG (26-34); Mean Corpuscular Volume 85.3 fL (80-100); Monocytes Absolute Auto 400 /uL (0-900); Monocytes Percent Auto 6.5 % (3-14); Neutrophils Absolute Auto 2800 /uL (1500-7000); Neutrophils Percent Auto 43.3 % (50-75); Platelet Count 244 X10^3/uL (150-400); Red Blood Cell Count 4.59 X10^6/uL (4.0-5.2); Red Cell Distribution Width 14.6 % (11.6-14.8)
[2024-10-24 10:40] LABS: White Blood Cell Count 6.5 X10^3/uL (4.5-11.0)
[2024-10-24 10:52] LABS: BUN Creatinine Ratio 14.9 (6-22); Blood Urea Nitrogen 11 mg/dL (7-17); Calcium 9.6 mg/dL (8.4-10.2); Carbon Dioxide 24 mmol/L (22-32); Chloride 103 mmol/L (98-107); Cholesterol 282 mg/dL (140-199); Estimated Glomerular Filt Rate > 60 mL/min (>60); Glucose 97 mg/dL (70-99); HDL Cholesterol 51 mg/dL (40-60); HEMOLYSIS < 15 (0-50); LDL Cholesterol Calculated 205 mg/dL (<100); Sodium 139 mmol/L (137-145); Triglycerides 131 mg/dL (35-150)
[2024-10-24 11:11] LABS: Vitamin D 25 Hydroxy (D3) 34.5 ng/mL (30.0-100.0)
[2024-10-24 11:24] LABS: TSH w/ Reflex to FT4 1.44 uIU/mL (0.47-4.68)
[2024-10-25 06:38] LABS: Thyroid Peroxidase Antibodies 81 IU/mL (0-34)
[2024-10-25 17:36] LABS: Anti Thyroglobulin Antibody <1.0 IU/mL (0.0-0.9)
[2024-10-26 16:26] LABS: Free T3, Triiodothyronine Free 4.16 pg/mL (2.77-5.27); Free T4, Direct Thyroxine 1.49 ng/dL (0.78-2.19)
[2024-10-26 21:36] LABS: Thyroid Stimulating Immunoglob < 0.10 IU/L (0.00-0.55)
== END ==
LOC: LAB 09:26
PROVIDERS: Family Provider Physician Assistant; PCP Nurse Practitioner Family
DX: E06.3 Autoimmune thyroiditis (principal); F41.1 Generalized anxiety disorder; F41.0 Panic disorder [episodic paroxysmal anxiety]; Z86.2 Personal history of diseases of the blood and blood-forming organs and certain disorders involving the immune mechanism; K21.9 Gastro-esophageal reflux disease without esophagitis; E03.8 Other specified hypothyroidism; Z13.220 Encounter for screening for lipoid disorders; J45.21 Mild intermittent asthma with (acute) exacerbation; F33.1 Major depressive disorder, recurrent, moderate; J45.40 Moderate persistent asthma, uncomplicated
CPT/HCPCS: 36415; 80048; 80061; 82306; 84439; 84443; 84445; 84481; 85025; 86376; 86800

== ENCOUNTER 2024-11-10 16:02 | Emergency (ER) | payer OTHER, SELFPAY ==
[2024-11-10 16:24] VITALS: BP 104/52; PULSE 89; RESP 16; TEMP 36.6; O2SAT 98; BMI 25.5
--- NOTE | 2024-11-10 16:29 | DI.RAD.S_ITS ---
PROCEDURE: XR RIBS LT MIN 3V W CXR1V INDICATIONS: fall, rib pain TECHNIQUE: 3 views of the ribs were acquired, along with a single view chest. COMPARISON: [facility], , XR CHEST 1V, 09/19/2023, 14:17. FINDINGS: Surgical changes and devices: None. Bones and chest wall: No fractures or dislocations. No suspicious bony lesions. Overlying soft tissues appear unremarkable. Lungs and pleura: No pleural effusions or pneumothorax. Lungs appear clear. Mediastinum: Mediastinal contours appear normal. Heart size is normal. IMPRESSION: No displaced rib fracture or pneumothorax. Dictated by: Yaniv Arambula M.D. on 11/10/2024 at 16:12 Approved by: Yaniv Arambula M.D. on 11/10/2024 at 16:13
[2024-11-10 22:46] VITALS: BP 100/51; PULSE 70; RESP 16; O2SAT 98
--- NOTE | 2024-11-10 23:55 | PC.NURSE ---
This nurse witnessed pt raise voice toward elevator service technician, c/o long wait, and pain. Pt then proceeded to leave ER.
--- NOTE | 2024-11-11 | PC.NURSE ---
registration reported that pt was walking thru the waiting room telling everyone they better not have an emergency because there was not a doctor to take care of them the pt proceeded to walk out the door drop her bag and sat on the ground
--- NOTE | 2024-11-11 00:05 | PC.NURSE ---
pt said on her call light she needed help and that she was in too much pain. I found her nurse and nurse said we were waiting for the doctor for medication orders. I relayed this information to the pt and she was visibly upset and said that she had been here for hours and asked if there was only one doctor on and i said yes, pt then asked if she was allowed to call 911 to go to another hospital and i said yes. patient then gathered her belongings and went out to the waiting room while yelling to the other patients.
--- NOTE | 2024-11-11 00:06 | PC.NURSE ---
after pt left the department, going outside she returned calling back to the nurses station asking for the charge nurse after explaining that is was the charge nurse she asked to have explained to her how it was legal for her to be laying here for 8 hours unattended, it was explained to the pt that she was attended to by the nurses, and she did receive xrays. explained to pt that pt were seen in order of acuity not in the order of when they arrived pt stated she was not attended to and she lay on the stretcher dying. explained to pt that she was not dying she then hung up the phone
== END 2024-11-11 | disposition left against medical advice (07) ==
PROVIDERS: Emergency Provider Emergency Medicine; Family Provider Physician Assistant; PCP Nurse Practitioner Family
DX: R10.9 Unspecified abdominal pain (principal)
CPT/HCPCS: 71101; 99281

== ENCOUNTER → 2024-11-16 15:23 | Outpatient (CLI) | payer OTHER, SELFPAY ==
--- NOTE | 2024-11-16 15:25 | DI.RAD.S_ITS ---
PROCEDURE: XR CHEST 2V INDICATIONS: f/u pulmonary contusion TECHNIQUE: 2 views of the chest were acquired. COMPARISON: [facility], CR, XR CHEST 1V, 09/19/2023, 14:17. FINDINGS: Surgical changes and devices: None. Lungs and pleura: Lungs are clear. No pleural effusions or pneumothorax. Mediastinum: Mediastinal contours are normal. Heart size is normal. Bones and chest wall: No suspicious bony abnormalities. Soft tissues appear unremarkable. IMPRESSION: No acute cardiopulmonary abnormality is seen. Approved by: Baron Nava M.D. on 11/16/2024 at 16:58
== END ==
PROVIDERS: Family Provider Physician Assistant; PCP Nurse Practitioner Family; Referring Provider Nurse Practitioner Family; Visit Provider Nurse Practitioner Family
DX: S27.329A Contusion of lung, unspecified, initial encounter (principal); X58.XXXA Exposure to other specified factors, initial encounter
CPT/HCPCS: 71046

== ENCOUNTER 2024-11-29 11:53 | Emergency (ER) | payer OTHER, SELFPAY ==
[2024-11-29 12:05] VITALS: BP 117/58; PULSE 94; RESP 17; TEMP 36.5; O2SAT 99; BMI 24.5
--- NOTE | 2024-11-29 13:38 | ED_ITS ---
<Statement entered by Jose R Izaguirre, DO - 11/30/24 07:10> Co-sign statement: I was available for consultation during this patient's emergency department visit. This chart is signed by myself for administrative purposes only. I do not have direct contact with this patient during this visit. They were seen by the APC independently. HPI - Abdominal Pain General Chief Complaint: Abdominal Pain Stated Complaint: stomach pain x 4 days Time Seen by Provider: 11/29/24 13:00 Source: other Mode of arrival: Wheelchair History of Present Illness HPI narrative: Ms. Delgado is a 39-year-old female with a past medical history of hypothyroidism, chronic low back pain, asthma, PTSD, ADHD, bipolar 1 disorder who presents to the emergency department for left upper quadrant abdominal pain with diarrhea x4 days. Patient states that she experienced similar symptoms about 1 year ago and believes she has having an acute exacerbation of a chronic disorder. When she experienced similar symptoms 1 year ago, she was seen in the emergency department, and had a follow up endoscopy and colonoscopy that were normal. Three and half weeks ago the patient had a fall onto her left side and reports being treated at an outside emergency department for a left-sided pleural effusion and lung bruise which was improving however 4 days ago she developed severe left upper quadrant abdominal pain, nausea, diarrhea that has been persistent. Symptoms feel similar to 1 year ago. Describes pain as severe, radiating around to the back. Pain is exacerbated by eating or drinking anything and she has been having dry heaving. She also gets episodes of heat flashes. She denies black or bloody stool, bloody emesis, or hematuria. No chest pain, shortness of breath or coughing. No fevers. She admits to a history of alcohol use but has been sober since May 2024. She does vape. She has been taking opiate pain medication since the fallOctober 28. Patient did present to her primary care doctor earlier in the day today for these symptoms and chart review reveals ?I am here again for 1 of the episodes that have been searching for the answers for the past 20 years?. Related Data Home Medications ?Medication ?Instructions ?Recorded ?Confirmed loratadine 10 mg tablet (Claritin) 10 mg PO DAILY 09/1111/29/24 acetaminophen 500 mg oral powder 1,000 mg PO Q6H PRN 0 10/20/23 11/29/24 packet (Tylenol Extra Strength) fluticasone propionate 50 1 spray intranasal DAILY 11/29/24 mcg/actuation nasal spray,suspension (Flonase Allergy Relief) Previous Rx's ?Medication ?Instructions ?Recorded albuterol sulfate 90 mcg/actuation 2 puff inhalation Q 4-6H PRN 02/06/24 aerosol inhaler shortness of breath or wheez ing #8.5 grams naratriptan 1 mg tablet See Rx Instructions PO .COMP CHRISTIANO #7 04/11/24 tabs sertraline 100 mg tablet 200 mg (2 x 100 mg) PO DAILY #180 05/21/24 tabs levothyroxine 150 mcg tablet 150 mcg PO DAILY #90 tabs 08/14/24 budesonide-formoterol HFA 160 2 puff inhalation BID #1 0.2 grams 10/26/24 mcg-4.5 mcg/actuation aerosol inhaler (Symbicort) montelukast 10 mg tablet 10 mg PO BEDTIME #60 tabs dextroamphetamine-amphetamine ER 30 mg PO QAM #30 caps 10/31/24 30 mg 24hr capsule,extend release eszopiclone 3 mg tablet 3 mg PO BEDTIME PRN insomnia #30 10/31/24 tabs clonidine HCl 0.1 mg tablet 0.1 mg PO BID #180 tabs promethazine 25 mg tablet 25 mg PO Q6H PRN nausea and 11/07/24 vomiting #120 tabs hydrocodone 5 mg-acetaminophen 325 1 tab PO Q8H PRN pa in #21 tabs 11/16/24 mg tablet gabapentin 300 mg capsule 600 mg (2 x 300 mg) PO TID P RN 11/29/24 pain (scale score 4-6) #90 caps ondansetron 4 mg disintegrating 4 mg PO Q8H PRN nausea and 11/29/24 tablet vomiting #20 tabs Allergies Allergy/AdvReac Type Severity Reaction Status Date / Time No Known Drug Allergies Allergy Verified 11/29/24 12:16 Review of Systems Review of Systems ROS Unobtainable: All systems reviewed & are unremarkable except as noted in HPI and below Patient History Medical History Acute pain due to injury Eosinophilic asthma Lipid screening Insomnia due to mental disorder ADHD Attention and concentration deficit PTSD (post-traumatic stress disorder) Generalized anxiety disorder with panic attacks Major depressive disorder, recurrent, moderate Allergies Substance abuse (~2002) Restless leg syndrome Irregular menstrual cycle Herpes (~2007) History of urinary incontinence (~2021) Seizure Asthma Lumbar spondylosis Lumbar radiculopathy Eczema (~2020) Chronic back pain (~2011) Chicken pox (~1992) Ruptured tympanic membrane History of recurrent ear infection (~1984) Hearing loss (~1994) Perforation of right tympanic membrane due to otitis media Nightmares Dyshidrotic hand dermatitis Hyperthyroidism Right otitis media with effusion Urinary tract infection (~2014) Pneumonia Exercise-induced asthma Hypothyroid (~2001) Migraine (~2009) Bipolar 1 disorder (~2016) Anxiety (~2004) Depression (~2004) Corneal abrasion, right (~2017) Conjunctivitis Corneal abrasion, left (~2017) Pyelonephritis (~2014) Vasovagal syncope (~2009) Surgical History History of skin graft Adverse effect of anesthesia Ganglion cyst of dorsum of left wrist (~2012) History of discectomy (~2014) History of placement of ear tubes (~1989) History of adenoidectomy (~2001) Hx of tonsillectomy (~2003) History of tympanoplasty of right ear (~2017) Family History Mother Stroke Leukemia Breast cancer Father Depression Hypothyroid Bipolar 1 disorder Anxiety Grandmother Stroke Myocardial infarct Grandfather Congestive heart failure Grandmother Parkinson's disease Grandfather Congestive heart failure Leukemia Brother Asthma Brother No problems noted. Social History marital status: unmarried,living together number of children: 1 household members: significant other and children lives independently: Yes caregiver/support person: No housing: house pets and animals: Yes (3 dogs.) education level: college occupational status: employed and unemployed current occupational exposures/hazards: No special jen needs: No travel history: over 6 months ago leisure activities: exercise seatbelt use: always water heater temp set < 120 deg: Yes working smoke detector in home: Yes fire extinguisher in home: Yes carbon monox detector in home: Yes firearms in home: No do you feel safe at home: Yes Smoking Status: Current every day smoker second hand exposure: No alcohol intake: former substance use type: marijuana during the past year weight has: other well-balanced diet: daily or most days daily servings fruits/ve-4 caffeine: Yes (Aware of 200mg limit) Type(s) of exercise: walking and bicycling frequency: daily Smoking Status: Current every day smoker tobacco type: vaping alcohol intake frequency: holidays/special occasions only Exam Narrative Exam Narrative: GENERAL: 39 year old patient appears stated age. Well-developed patient, in mild distress 2/2 LUQ abd pain. HEAD: Atraumatic. Normocephalic. EYES: No scleral icterus. No injection or drainage. NECK: Trachea midline. Cervical ROM intact. CARDIOVASCULAR: Regular rate and rhythm. RESPIRATORY: ?Nonlabored respirations. ?Speaking in clear, full sentences. ?Clear to auscultation. Breath sounds equal bilaterally. No wheezes, rales, or rhonchi. ? GASTROINTESTINAL: Abdomen soft, nondistended. Tenderness to palpation of left upper quadrant of abdomen, negative Isaac's sign or McBurney's point tenderness. EXTREMITIES: No edema or joint tenderness. NEURO: AOx3. ?Clear speech. ?Moves all 4 extremities appropriately. SKIN: No rash or erythema of visible areas. Initial Vital Signs Initial Vital Signs: Vital Signs Temperature 97.7 F 11/29/24 12:05 Pulse Rate 94 H 11/29/24 12:05 Respiratory Rate 17 11/29/24 12:05 Blood Pressure 117/58 L 11/29/24 12:05 Pulse Oximetry 99 11/29/24 12:05 Oxygen Delivery Method Room Air 11/29/24 12:05 Course Orders Ordered: ED Orders 11/29/24 12:39 Complete Blood Count AUTO DIFF Stat Comprehensive Metabolic Panel Stat Lactate (Lactic Acid) Stat Lipase Stat 11/29/24 13:39 CT chest abd pel w con Stat 11/29/24 19:05 Urine Culture Stat Urine Microscopic Stat Ondansetron HCl (Ondansetron 4 Mg/2 Ml Inj) 4 mg IV NOW PRN PRN Reason: Nausea And Vomiting Last Admin: 11/29/24 18:38 Dose: 4 mg Documented By: MOISES Ondansetron HCl (Ondansetron 4 Mg Odt) 4 mg PO NOW PRN PRN Reason: Nausea And Vomiting Discontinued Medications Hydrocodone Bitart/Acetaminophen (Hydrocodone/Acet 5/325 Prepack) 1 bottle MISC DIRECTED ONE Stop: 11/29/24 19:26 Sodium Chloride (Normal Saline 0.9%) 1,000 mls @ 1,000 mls/hr IV BOLUS ONE Stop: 11/29/24 14:38 Last Infusion: 11/29/24 16:42 Dose: Infused Documented By: Admin: 11/29/24 15:42 Dose: 1,000 mls/hr Documented By: MOISES Sodium Chloride (Normal Saline 0.9%) 1,000 mls @ 1,000 mls/hr IV BOLUS ONE Stop: 11/29/24 17:30 Last Infusion: 11/29/24 18:43 Dose: Infused Documented By: Admin: 11/29/24 16:42 Dose: 1,000 mls/hr Documented By: MOISES Metoclopramide HCl (Metoclopramide Hcl 5 Mg Tablet) 5 mg PO NOW ONE Stop: 11/29/24 19:26 Morphine Sulfate (Morphine 4 Mg/Ml Inj) 4 mg IV NOW ONE Stop: 11/29/24 13:40 Last Admin: 11/29/24 15:41 Dose: 4 mg Documented By: MOISES Ondansetron HCl (Ondansetron 4 Mg/2 Ml Inj) 4 mg IV NOW ONE Stop: 11/29/24 13:40 Last Admin: 11/29/24 15:41 Dose: 4 mg Documented By: MOISES Pantoprazole Sodium (Pantoprazole 40 Mg Vial) 40 mg IV NOW ONE Stop: 11/29/24 13:58 Last Admin: 11/29/24 15:40 Dose: 40 mg Documented By: MOISES Vital Signs Vital signs: Vital Signs - 8 hr 11/29/24 12:05 11/29/24 18:41 Temperature 97.7 F Pulse Rate 94 H 74 Respiratory Rate 17 14 Blood Pressure 117/58 L 119/72 Pulse Oximetry 99 97 Oxygen Delivery Method Room Air MDM - Abdominal Pain Medical Records Attestation: I reviewed the patient's medical records. Lab Data 11/29/24 12:39 11/29/24 12:39 Labs: Lab Results 11/29/24 Range/Units 12:39 WBC 6.9 (4.5-11.0) X10^3/uL RBC 5.14 (4.0-5.2) X10^6/uL Hgb 14.1 (12.0-16.0) g/dL Hct 43.6 (36-46) % MCV 84.8 (80-100) fL MCH 27.5 (26-34) PG MCHC 32.4 (30-36) % RDW 14.5 (11.6-14.8) % Plt Count 291 (150-400) X10^3/uL Neut % (Auto) 71.1 (50-75) % Lymph % (Auto) 13.1 L (25-40) % Gilchrist % (Auto) 5.8 (3-14) % Eos % (Auto) 8.8 H (2-4) % Baso % (Auto) 1.2 (0-2) % Neut # (Auto) 4900 (8790-4388) /uL Lymph # (Auto) 900 L (4423-7184) /uL Gilchrist # (Auto) 400 (0-900) /uL Eos # (Auto) 600 H (0-450) /uL Baso # (Auto) 100 (0-100) /uL Sodium 138 (137-145) mmol/L Potassium 4.2 (3.4-5.1) mmol/L Chloride 106 (98-107) mmol/L Carbon Dioxide 20 L (22-32) mmol/L BUN 15 (7-17) mg/dL Creatinine 0.68 (0.52-1.04) mg/dL Estimated GFR > 60 (>60) mL/min BUN/Creatinine Ratio 22.1 H (6-22) Glucose 100 H (70-99) mg/dL Lactate 0.7 (0.7-2.1) mmol/L Calcium 9.7 (8.4-10.2) mg/dL Total Bilirubin 1.3 (0.2-1.3) mg/dL AST 34 (14-36) IU/L ALT 18 (<35) IU/L Alkaline Phosphatase 70 (38-126) U/L Total Protein 8.0 (6.3-8.2) g/dL Albumin 5.0 (3.5-5.0) g/dL Globulin 3.0 (1.7-4.1) g/dL Albumin/Globulin Ratio 1.7 (1.0-2.8) Lipase 48 (23-300) U/L Point of care testing: Urine Dip Bedside Urine Glucose Negative Bedside Urine Bilirubin - Negative Bedside Urine Ketone ++ 40 Urine Specific Lolo 1.015 Bedside Urine Occult Blood +/- Bedside Urine pH 5.5 Bedside Urine Protein - Negative Bedside Urine Urobilinogen - Negative Bedside Urine Nitrite - Negative Bedside Urine Leukocytes - Negative Esterase Imaging Data CT Chest/Abd/Pelvis: Radiologist's Impression: PROCEDURE: CT CHEST ABD PEL W CON INDICATIONS: LUQ abd pain N, diarrheax 4 days; L rib injury 3 weeks ago TECHNIQUE: After the administration of intravenous contrast, 5 mm thick sections acquired from the lung apices to the symphysis. 5 mm coronal and sagittal reformats were performed, with additional 7 mm MIP reformats through the lungs. For radiation dose reduction, the following was used: automated exposure control, adjustment of mA and/or kV according to patient size. COMPARISON: [facility], CT, CT CHEST ABDOMEN PELVIS WITH CONTRAST, 11/12/2024, 22:52. FINDINGS: Image quality: Excellent. CHEST: Lower Neck: No enlarged lymph nodes. Thyroid: No thyroid nodules which require sonographic follow up, per consensus guidelines. Axillae: No enlarged lymph nodes. Chest Wall: Unremarkable. Lungs and Pleura: No pneumothorax or pleural effusions. No consolidation or suspicious nodules. unchanged 5 mm left lower lobe nodule series 5, image 191. Mild pleural nodular thickening. Unchanged 2 mm left lower lobe nodule series 5, image 235. Heart: Heart size is normal. No pericardial effusion. Thoracic Vessels: The aorta and pulmonary arteries demonstrate normal size. Mediastinum and Priscila: No enlarged lymph nodes. Esophagus: No wall thickening. No hiatal hernia. ABDOMEN: Liver: No solid mass. Liver measures 19 cm. Gallbladder: No radiopaque gallstones or wall thickening. Biliary ducts: No biliary dilation. Pancreas: No ductal dilation. Spleen: Size is mildly enlarged measuring 14.9 cm Adrenal Glands: No adrenal nodules. Kidneys and Ureters: No hydronephrosis. No solid mass. No complex renal cystic lesion which requires follow up. Stomach and Bowel: Normal colonic caliber, without significant wall thickening. Peritoneum: No abnormal intraperitoneal fluid. No free air. Ventral Wall: No significant ventral hernia. Abdominal Nodes: No retroperitoneal or mesenteric adenopathy by size criteria. Vessels: Aorta and inferior vena cava are normal in size. PELVIS: Pelvic Organs: Unremarkable. Bladder: No bladder wall thickening, accounting for underdistention. Pelvic Nodes: No enlarged lymph nodes. Miscellaneous: No inguinal hernias are seen. Bones: No aggressive osseous abnormality. IMPRESSION: No acute process within the chest, abdomen or pelvis. Stable subcentimeter pulmonary nodules. Dictated by: Cheyenne Bhatti M.D. on 11/29/2024 at 15:13 Approved by: Cheyenne Bhatti M.D. on 11/29/2024 at 15:18 MDM Narrative Medical decision making narrative: 39-year-old female with a past medical history of hypothyroidism, chronic low back pain, asthma, PTSD, ADHD, bipolar 1 disorder who presents to the emergency department for left upper quadrant abdominal pain with diarrhea x4 days. Differential diagnosis includes but is not limited to pancreatitis, splenic infarct, SBO, diverticulitis, colitis, renal colic, PUD, rib fracture, cholecystitis, appendicitis, constipation, pyelonephritis, acute on chronic pain, cyclic vomiting syndrome, dehydration, electrolyte abnormality, etc. On exam patient is in mild distress secondary to left upper quadrant abdominal pain, vital signs are within normal limits, mildly elevated heart rate 94, afebrile. She is tenderness to palpation of the left upper quadrant of the abdomen with both light and deep palpation. History of nonbloody diarrhea and driving as well. Labs ordered including lactic, CT chest abdomen pelvis with IV contrast given left upper quadrant abdominal pain also with history of left- sided trauma about 1 month ago. We will treat with fluids, morphine, Zofran and Protonix. Patient doing much better after ED treatment however continues to have slight nausea superior and Zofran dose was given. Imaging reveals no acute process within the chest, abdomen or pelvis. She does have stable pulmonary nodules. Imaging was printed and the entire report was discussed with the patient at the bedside. Labs overall reassuring with a normal WBC count of 6.9, hemoglobin 14.1, hematocrit 43.6. Patient does have elevated eosinophil percentage at 8.8, history of eosinophilic asthma. BUN 15 creatinine 0.68. Glucose 100. Normal lipase 48. Normal LFTs. UA with ketones. Viral swab negative. I extensively reviewed all results with the patient. She verbalized frustration because she does not want to keep coming to the ER and she wants her problems to be managed by primary care however she did verbalize understanding that severe abdominal pain does need to be managed in the ER. Patient went on to explain that she has had similar episodes throughout the majority of her life. I discussed the importance of following up with a order make up clerk for further management, continuing to form a relationship with a primary care provider, and also following up with pain management in regards to her chronic pain. We had an extensive discussion about opioids as well, and patient does not feel as though that she struggles with withdrawal from opioids and she only uses them intermittently. Discussed risks of narcotics. Patient was prescribed a prepack of pain medication in addition to Zofran. She received a total of 2 L of IV fluids today and is overall feeling much better and is now tolerating p.o. both solids and liquids and abdominal pain significantly improved. Advised follow up with PCP, pain management, GI. Discussed strict ED return precautions. Patient verbalized understanding of all information is agreeable with the plan. She is stable for discharge home. Discharge Plan Departure Patient Disposition: Home Clinical Impression: Acute exacerbation of chronic abdominal pain, Dehydration, Pulmonary nodule Diarrhea Qualifiers: Diarrhea type: unspecified type Qualified Code(s): R19.7 - Diarrhea, unspecified Instructions: DI for Viral Gastroenteritis -- Adult, DI for Abdominal Pain- Adult Activity Restrictions/Additional Instructions: Dear Ms. Delgado, Today, we completed a work up for left upper quadrant abdominal pain. Sometimes, we do not always find the cause for your symptoms in one ER visit. The findings on your exam today and on your blood work and imaging is reassuring. At this time, it is not 100% certain what is causing your symptoms, but we feel you can be discharged from the emergency department. It is possible this may worsen or you may get better. Please, if you get worse or your symptoms change, return to the emergency department. Otherwise, please follow up with your primary care doctor as soon as possible. After reviewing your prior lab work in addition to the lab work and imaging from today, I do recommend that you follow up with a gastrointestinal doctor for further evaluation. In the meantime I have prescribed you ondansetron/Zofran which is nausea medication. Please take small but frequent sips of electrolyte beverage such as Gatorade/Pedialyte. I recommend starting with a clear liquid diet and then slowly increasing to a liquid and then soft and then normal diet as tolerated. Please return to the ER if you develop any new or worsening symptoms such as fevers, severe pain, persistent vomiting and diarrhea or any other concerns. Please follow up with your primary care doctor within the next 2-3 days for ER follow-up. (If you do not have a PCP you can call [phone]. ?to schedule an appointment with an [facility] Primary Care Provider) IF YOU DEVELOP ANY NEW OR WORSENING SYMPTOMS, RETURN TO THE ER! Please read the attached instructions, they highlight more specific treatments and interventions for you at home. Thank you for letting me participate in your care, Sandhya Fortune PA-C Prescriptions: New ondansetron 4 mg tablet,disintegrating 4 mg PO Q8H PRN (Reason: nausea and vomiting) Qty: 20 0RF No Action albuterol sulfate 90 mcg/actuation HFA aerosol inhaler 2 puff inhalation Q4-6H PRN (Reason: shortness of breath or wheezing) Qty: 8.5 6RF naratriptan 1 mg tablet See Rx Instructions PO .COMPLEX Qty: 7 0RF Rx Instructions: take 1 tablet at onset of headache; if no relief, may repeat 1 tablet after at least 4 hrs PO sertraline 100 mg tablet 200 mg PO DAILY Qty: 180 3RF levothyroxine 150 mcg tablet 150 mcg PO DAILY Qty: 90 2RF eszopiclone 3 mg tablet 3 mg PO BEDTIME PRN (Reason: insomnia ) Qty: 30 0RF dextroamphetamine-amphetamine 30 mg capsule,extended release 24hr 30 mg PO QAM Qty: 30 0RF clonidine HCl 0.1 mg tablet 0.1 mg PO BID Qty: 180 0RF gabapentin 300 mg capsule 600 mg PO TID PRN (Reason: pain (scale score 4-6)) Qty: 90 2RF loratadine [Claritin] 10 mg tablet 10 mg PO DAILY promethazine 25 mg tablet 25 mg PO Q6H PRN (Reason: nausea and vomiting) Qty: 120 0RF hydrocodone-acetaminophen 5-325 mg tablet 1 tab PO Q8H PRN (Reason: pain) Qty: 21 0RF Tylenol Extra Strength 500 mg powder in packet 1,000 mg PO Q6H PRN fluticasone propionate [Flonase Allergy Relief] 50 mcg/actuation spray,suspension 1 spray intranasal DAILY Rx Instructions: administer into each nostril budesonide-formoterol [Symbicort] 160-4.5 mcg/actuation HFA aerosol inhaler 2 puff inhalation BID Qty: 10.2 5RF montelukast 10 mg tablet 10 mg PO BEDTIME Qty: 60 3RF Referrals: Vicky Power FNP-BC [Primary Care Provider, Family Practice] Stand Alone Forms: Patient Portal/API
[2024-11-29 13:52] LABS: Add Manual Diff / Slide Review NO; Basophils Absolute Auto 100 /uL (0-100); Basophils Percent Auto 1.2 % (0-2); Eosinophils Absolute Auto 600 /uL (0-450); Eosinophils Percent Auto 8.8 % (2-4); Hematocrit 43.6 % (36-46); Hemoglobin 14.1 g/dL (12.0-16.0); Lymphocytes Absolute Auto 900 /uL (1100-4500); Lymphocytes Percent Auto 13.1 % (25-40); Mean Corpuscular HGB Conc 32.4 % (30-36); Mean Corpuscular Hemoglobin 27.5 PG (26-34); Mean Corpuscular Volume 84.8 fL (80-100); Monocytes Absolute Auto 400 /uL (0-900); Monocytes Percent Auto 5.8 % (3-14); Neutrophils Absolute Auto 4900 /uL (1500-7000); Neutrophils Percent Auto 71.1 % (50-75); Platelet Count 291 X10^3/uL (150-400); Red Blood Cell Count 5.14 X10^6/uL (4.0-5.2); Red Cell Distribution Width 14.5 % (11.6-14.8); White Blood Cell Count 6.9 X10^3/uL (4.5-11.0)
[2024-11-29 13:57] LABS: Alanine Aminotransferase 18 IU/L (<35); Albumin Globulin Ratio 1.7 (1.0-2.8); Alkaline Phosphatase 70 U/L (38-126); Aspartate Aminotransferase 34 IU/L (14-36); BUN Creatinine Ratio 22.1 (6-22); Bilirubin Total 1.3 mg/dL (0.2-1.3); Blood Urea Nitrogen 15 mg/dL (7-17); Calcium 9.7 mg/dL (8.4-10.2); Carbon Dioxide 20 mmol/L (22-32); Chloride 106 mmol/L (98-107); Estimated Glomerular Filt Rate > 60 mL/min (>60); Glucose 100 mg/dL (70-99); HEMOLYSIS 20 (0-50); Lipase 48 U/L (23-300); Potassium 4.2 mmol/L (3.4-5.1); Sodium 138 mmol/L (137-145)
[2024-11-29 13:58] LABS: Lactate (Lactic Acid) 0.7 mmol/L (0.7-2.1)
[2024-11-29] MEDS: PANTOPRAZOLE 40 MG VIAL IV (15:40)
[2024-11-29] MEDS: ONDANSETRON 4 MG/2 ML INJ IV ×2 (15:41→18:38)
[2024-11-29] MEDS: MORPHINE 4 MG/ML INJ IV (15:41)
[2024-11-29] MEDS: SODIUM CHLORIDE 0.9% 1,000 ML 1000 ML IV ×2 (15:42→16:42)
[2024-11-29 18:41] VITALS: BP 119/72; PULSE 74; RESP 14; O2SAT 97
[2024-11-29] MEDS: HYDROCODONE/ACET 5/325 PREPACK 1 BOTTLE MISC (19:39)
[2024-11-29] MEDS: METOCLOPRAMIDE HCL 5 MG TABLET PO (19:49)
== END 2024-11-29 19:53 | disposition home or self-care (01) ==
PROVIDERS: Family Medicine; Emergency Provider Physician Assistant; Family Provider Physician Assistant; PCP Nurse Practitioner Family
DX: R10.12 Left upper quadrant pain (principal); G89.29 Other chronic pain; E86.0 Dehydration; R11.0 Nausea; R19.7 Diarrhea, unspecified; R91.1 Solitary pulmonary nodule
CPT/HCPCS: 36415; 71260; 74177; 80053; 81003; 83605; 83690; 85025; 96361; 96374; 96375; 99284; J2270; J2405; J2470; Q9967

== ENCOUNTER → 2024-12-06 15:11 | Outpatient (CLI) | payer OTHER, SELFPAY ==
--- NOTE | 2024-12-06 15:13 | DI.RAD.S_ITS ---
PROCEDURE: XR SHOULDER LT 3V INDICATIONS: Left shoulder pain TECHNIQUE: 3 views of the shoulder were acquired. COMPARISON: None. FINDINGS: Mild degenerative changes of the left acromioclavicular joint with mild joint space narrowing and small osteophytes. No radiographic evidence of displaced fracture, dislocation or high attenuation soft tissue foreign body or calcification. IMPRESSION: Mild degenerative changes. If symptoms persist or worsen, or there is high clinical suspicion of left shoulder abnormality, MRI could be performed. Dictated by: Tyree Lundberg M.D. on 12/07/2024 at 9:28 Approved by: Tyree Lundberg M.D. on 12/07/2024 at 9:41
== END ==
PROVIDERS: PCP Nurse Practitioner Family; Referring Provider Nurse Practitioner Family; Visit Provider Nurse Practitioner Family
DX: M25.512 Pain in left shoulder (principal)
CPT/HCPCS: 73030

== ENCOUNTER → 2024-12-24 11:09 | Outpatient (CLI) | payer OTHER, SELFPAY ==
--- NOTE | 2024-12-24 11:10 | DI.MRI.S_ITS ---
PROCEDURE: MR SHOULDER LT W CON INDICATIONS: r/ labral tear TECHNIQUE: After the administration of 12 mL of dilute intra-articular Gadolinium contrast, oblique coronal T1 and T2 spin echo with fat saturation, oblique sagittal T1 spin echo with and without fat saturation, oblique sagittal T2 fast spin echo with fat saturation, axial T1 spin echo with fat saturation through the shoulder. COMPARISON: [facility], CT, CT CHEST ABD PEL W CON, 11/29/2024, 14:26. [facility], CR, XR SHOULDER LT 2+ VIEWS, 12/06/2024, 15:11. [facility], RF, [place] ARTHROGRAM SHOULDER LT, 12/24/2024, 10:41. FINDINGS: Image quality: Excellent. Rotator cuff: Mild to moderate supraspinatus and infraspinatus tendinosis. Thin focal [id number] signal is seen in the posterior supraspinatus insertion measuring 1-2 mm in anterior-posterior dimension that could represent partial intrasubstance tearing. Teres minor tendon is intact. Focal high-grade partial articular sided tearing of the subscapularis tendon at the superior insertion no extravasation of contrast material into the subcoracoid bursa. No rotator cuff muscle atrophy. Bones and bursae: No acute trabecular bone injury or fracture. Small chronic traction cystic changes at the posterior humeral head. No focal glenohumeral cartilage defect. [id number] degenerative changes at the acromioclavicular joint with subchondral edema and subchondral cystic changes as well as tiny marginal osteophytes. Trace noncommunicating subacromial/subdeltoid bursal fluid. No intra-articular glenohumeral loose body. Capsule and soft tissues: Partial nondisplaced tearing at the superior to posterior superior labrum. Proximal biceps long head tendon is intact. Glenohumeral ligaments are intact. IMPRESSION: 1. Focal high-grade partial articular sided tearing of the supraspinatus tendon involving the superior portion of the distal insertion measuring 2 mm in width. Mild subscapularis tendinosis. 2. Focal low-grade partial intrasubstance tearing at the distal supraspinatus insertion measuring 1-2 mm in width. [id number] supraspinatus and infraspinatus tendinosis. 3. Nondisplaced partial tearing of the superior to posterior superior labrum. 4. [id number] acromioclavicular joint osteoarthrosis. Approved by: Terrence Ruiz M.D. on 12/24/2024 at 16:32
--- NOTE | 2024-12-24 11:10 | DI.RAD.S_ITS ---
PROCEDURE: FL ARTHROGRAM SHOULDER LT INDICATIONS: r/o labral tear COMPARISON: [facility], CR, XR SHOULDER LT 2+ VIEWS, 12/06/2024, 15:11. TECHNIQUE: The indications, alternatives, benefits, risks, and complications of the procedure were explained to the patient. Written informed consent was obtained and placed in the chart. The shoulder was examined fluoroscopically and a site for needle placement chosen for entry into the glenohumeral joint from an anterior approach. The skin was prepped and draped in a sterile fashion, and 1% lidocaine infiltrated from skin down to joint capsule. A spinal needle was inserted into the glenohumeral joint, and a small amount of iodinated contrast media injected to confirm intra-articular placement of the needle tip. This was followed by approximately 12 mL dilute solution of a gadolinium containing MR contrast agent. The needle was removed and a dressing was applied. The patient was given postprocedural instructions and sent to the MR suite for MR imaging. FINDINGS: A single fluoroscopic spot image demonstrates intra-articular location of injected iodinated contrast. IMPRESSION: Successful fluoroscopically guided administration of dilute Gadolinium solution into the shoulder joint for MR arthrogram. Approved by: Terrence Ruiz M.D. on 12/24/2024 at 19:33
[2024-12-24] MEDS: LIDOCAINE 1% 20 ML INJ (12:45)
[2024-12-24] MEDS: SODIUM CHLORIDE 0.9 % 20 ML VIAL IV (12:45)
== END ==
PROVIDERS: PCP Nurse Practitioner Family; Referring Provider Orthopaedic Surgery; Visit Provider Orthopaedic Surgery
DX: M75.112 Incomplete rotator cuff tear or rupture of left shoulder, not specified as traumatic (principal); S43.492A Other sprain of left shoulder joint, initial encounter; M19.012 Primary osteoarthritis, left shoulder; M25.512 Pain in left shoulder
CPT/HCPCS: 23350; 73040; 73222; A9579

== ENCOUNTER 2025-01-16 13:27 | Emergency (ER) | payer OTHER, SELFPAY ==
[2025-01-16] VITALS (11 sets, daily range): BP systolic 113–138; BP diastolic 70–85; PULSE 58–114; RESP 16–18; TEMP 36.9; O2SAT 92–97; BMI 22.8
--- NOTE | 2025-01-16 14:04 | ED_ITS ---
HPI - General Adult <Kareen Cuenca MD - Last Filed: 01/19/25 08:05> General Chief complaint: Abdominal Pain Stated complaint: severe stomach pain N/V Chest pain x 2 weeks Time Seen by Provider: 01/16/25 13:50 Source: patient Mode of arrival: Ambulatory History of Present Illness HPI narrative: 39-year-old woman with a long history of abdominal pain and discomfort without definitive diagnosis. She presents today because over the last 2 weeks all of her GI symptoms have gotten significantly worse with the inability to eat any food at all without vomiting. She states 3 days ago she had an egg and a handful of nuts in the evening and then vomited the entire about up in the morning. She brings in a long list of history including lifestyle changes, supplements used current symptoms as well as current medications that are reviewed in detail and we will be included her medical record. She had upper and lower endoscopies with General surgery at [facility] but has not had official GI consultation. 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 On November 06 she fell carrying her 2-year-old child landed on her entire left side with shoulder rib hip and leg pain. Since that time she has had x-rays CTs and MRIs of the shoulder and has started physical therapy most recently seen yesterday. Related Data Home Medications ?Medication ?Instructions ?Recorded ?Confirmed loratadine 10 mg tablet (Claritin) 10 mg PO DAILY 09/1101/16/25 acetaminophen 500 mg oral powder 1,000 mg PO Q6H PRN 0 10/20/23 01/16/25 packet (Tylenol Extra Strength) fluticasone propionate 50 1 spray intranasal DAILY 01/16/25 mcg/actuation nasal spray,suspension (Flonase Allergy Relief) cyclobenzaprine 10 mg tablet 10 mg PO 3XD PRN muscle s pasm 01/16/25 01/16/25 Previous Rx's ?Medication ?Instructions ?Recorded albuterol sulfate 90 mcg/actuation 2 puff inhalation Q 4-6H PRN 02/06/24 aerosol inhaler shortness of breath or wheez ing #8.5 grams sertraline 100 mg tablet 200 mg (2 x 100 mg) PO DAILY #180 12/09/24 tabs levothyroxine 150 mcg tablet 150 mcg PO DAILY #90 tabs 08/14/24 budesonide-formoterol HFA 160 2 puff inhalation BID #1 0.2 grams 10/26/24 mcg-4.5 mcg/actuation aerosol inhaler (Symbicort) promethazine 25 mg tablet 25 mg PO Q6H PRN nausea and 11/07/24 vomiting #120 tabs ondansetron 4 mg disintegrating 4 mg PO Q8H PRN nausea and 11/29/24 tablet vomiting #20 tabs lidocaine 5 % topical patch See Rx Instructions topica l 12/19/24 .COMPLEX #30 ea buspirone 15 mg tablet 15 mg PO TID anxiety #90 ta bs 12/31/24 clonidine HCl 0.1 mg tablet 0.05 mg (1/2 x 0.1 mg) PO BID #180 12/31/24 tabs dextroamphetamine-amphetamine ER 20 mg PO QAM #30 caps 12/31/24 20 mg 24hr capsule,extend release eszopiclone 3 mg tablet 3 mg PO BEDTIME PRN insomnia #30 12/31/24 tabs lorazepam 0.5 mg tablet 0.5 mg PO BID PRN panic annabella ck(s) 12/31/24 #15 tabs naratriptan 1 mg tablet See Rx Instructions PO .COMP CHRISTIANO #7 01/04/25 tabs montelukast 10 mg tablet 10 mg PO BEDTIME #60 tabs gabapentin 300 mg capsule 600 mg (2 x 300 mg) PO TID N ERVE 01/11/25 PAIN #180 caps Allergies Allergy/AdvReac Type Severity Reaction Status Date / Time droperidol AdvReac Intermediate Anxiety Verified 01/16/25 13:53 Review of Systems <Kareen Cuenca MD - Last Filed: 01/19/25 08:05> Review of Systems Narrative: Pertinent positive and negative findings as per HPI Patient History <Kareen Cuenca MD - Last Filed: 01/19/25 08:05> Medical History Impingement syndrome of left shoulder Facet arthropathy, lumbar Acute pain due to injury Eosinophilic asthma Lipid screening Insomnia due to mental disorder ADHD Attention and concentration deficit PTSD (post-traumatic stress disorder) Generalized anxiety disorder with panic attacks Major depressive disorder, recurrent, moderate Allergies Substance abuse (~2002) Restless leg syndrome Irregular menstrual cycle Herpes (~2007) History of urinary incontinence (~2021) Seizure Asthma Lumbar spondylosis Lumbar radiculopathy Eczema (~2020) Chronic back pain (~2011) Chicken pox (~1992) Ruptured tympanic membrane History of recurrent ear infection (~1984) Hearing loss (~1994) Perforation of right tympanic membrane due to otitis media Nightmares Dyshidrotic hand dermatitis Hyperthyroidism Right otitis media with effusion Urinary tract infection (~2014) Pneumonia Exercise-induced asthma Hypothyroid (~2001) Migraine (~2009) Bipolar 1 disorder (~2016) Anxiety (~2004) Depression (~2004) Corneal abrasion, right (~2017) Conjunctivitis Corneal abrasion, left (~2017) Pyelonephritis (~2014) Vasovagal syncope (~2009) Surgical History History of skin graft Adverse effect of anesthesia Ganglion cyst of dorsum of left wrist (~2012) History of discectomy (~2014) History of placement of ear tubes (~1989) History of adenoidectomy (~2001) Hx of tonsillectomy (~2003) History of tympanoplasty of right ear (~2017) Family History Mother Stroke Leukemia Breast cancer Father Depression Hypothyroid Bipolar 1 disorder Anxiety Grandmother Stroke Myocardial infarct Grandfather Congestive heart failure Grandmother Parkinson's disease Grandfather Congestive heart failure Leukemia Brother Asthma Brother No problems noted. Social History marital status: unmarried,living together number of children: 1 household members: significant other and children lives independently: Yes caregiver/support person: No housing: house pets and animals: Yes (3 dogs.) education level: college occupational status: employed and unemployed current occupational exposures/hazards: No special jen needs: No travel history: over 6 months ago leisure activities: exercise seatbelt use: always water heater temp set < 120 deg: Yes working smoke detector in home: Yes fire extinguisher in home: Yes carbon monox detector in home: Yes firearms in home: No do you feel safe at home: Yes second hand exposure: No alcohol intake: former substance use type: marijuana during the past year weight has: other well-balanced diet: daily or most days daily servings fruits/ve-4 caffeine: Yes (Aware of 200mg limit) Type(s) of exercise: walking and bicycling frequency: daily tobacco type: vaping alcohol intake frequency: holidays/special occasions only Exam <Kareen Cuenca MD - Last Filed: 01/19/25 08:05> Initial Vital Signs Initial Vital Signs: Vital Signs Temperature 98.4 F 01/16/25 13:53 Pulse Rate 114 H 01/16/25 13:53 Respiratory Rate 16 01/16/25 13:53 Blood Pressure 113/72 01/16/25 13:53 Pulse Oximetry 97 01/16/25 13:53 Oxygen Delivery Method Room Air 01/16/25 13:53 General: Appears to be in pain holding onto her left upper quadrant, able to speak in full sentences and cooperate with exam HEENT: Moist mucous membranes, normal sclera with reactive pupils, Respiratory: Lungs are clear to auscultation, no wheezing no rales no rhonchi. Full and symmetrical air movement Chest: Tenderness with manipulation of the left thorax. Cardiac: Regular rate and rhythm no murmurs no bruits Abdomen: Soft, significant tenderness in the left upper quadrant without rebound or guarding. Skin: Warm and dry, no rashes Neurologic: Grossly neurologically intact with no obvious asymmetries or abnormalities Extremities: No trauma, well perfused Psych: Cooperative, appropriate insight and affect <Bhargav Gutierrez MD - Last Filed: 01/17/25 04:21> Initial Vital Signs Initial Vital Signs: Vital Signs Temperature 98.4 F 01/16/25 13:53 Pulse Rate 114 H 01/16/25 13:53 Respiratory Rate 16 01/16/25 13:53 Blood Pressure 113/72 01/16/25 13:53 Pulse Oximetry 97 01/16/25 13:53 Oxygen Delivery Method Room Air 01/16/25 13:53 Course <Kareen Cuenca MD - Last Filed: 01/19/25 08:05> Orders Ordered: Discontinued Medications Dextrose (Dextrose 50 % In Water 25 Gm/50 Ml Syringe) 25 gm IV NOW ONE Stop: 01/16/25 15:32 Last Admin: 01/16/25 15:34 Dose: 25 gm Documented By: CLEMENT Dextrose (Dextrose 25 % In Water 2.5 Gm/10 Ml Syringe) 2.5 gm IV NOW ONE Stop: 01/16/25 19:52 Last Admin: 01/16/25 20:12 Dose: Not Given Documented By: ELBA Dextrose (Dextrose 50 % In Water 25 Gm/50 Ml Syringe) 2.5 gm IV NOW ONE Stop: 01/16/25 20:11 Last Admin: 01/16/25 20:13 Dose: 2.5 gm Documented By: ELBA Diphenhydramine HCl (Diphenhydramine 50 Mg/Ml Vial) 25 mg IV NOW ONE Stop: 01/16/25 14:13 Last Admin: 01/16/25 14:46 Dose: 25 mg Documented By: ELBA Hydromorphone HCl (Hydromorphone Hcl 0.5 Mg/0.5 Ml Syringe) 0.5 mg IV NOW ONE Stop: 01/16/25 14:13 Last Admin: 01/16/25 14:46 Dose: 0.5 mg Documented By: ELBA Hydromorphone HCl (Hydromorphone Hcl 0.5 Mg/0.5 Ml Syringe) 0.5 mg IV NOW ONE Stop: 01/16/25 17:51 Last Admin: 01/16/25 18:03 Dose: 0.5 mg Documented By: KISHA Hydromorphone HCl (Hydromorphone Hcl 0.5 Mg/0.5 Ml Syringe) 0.5 mg IV Q15MIN PRN PRN Reason: Pain, Last Admin: 01/16/25 22:36 Dose: 0.5 mg Documented By: Admin: 01/16/25 20:12 Dose: 0.5 mg Documented By: ELBA Hydromorphone HCl (Hydromorphone Hcl 0.5 Mg/0.5 Ml Syringe) 0.5 mg IV NOW ONE Stop: 01/17/25 00:37 Last Admin: 01/17/25 01:29 Dose: 0.5 mg Documented By: CASANDRA Sodium Chloride (Normal Saline 0.9%) 1,000 mls @ 1,000 mls/hr IV BOLUS ONE Stop: 01/16/25 15:11 Last Infusion: 01/16/25 15:54 Dose: Infused Documented By: Admin: 01/16/25 14:45 Dose: 1,000 mls/hr Documented By: ELBA Dextrose/Lactated Ringer's (Dextrose 5%-Lactated Ringers) 1,000 mls @ 125 mls/hr IV CONT JOSE D Last Infusion: 01/16/25 23:52 Dose: Infused Documented By: Admin: 01/16/25 15:36 Dose: 125 mls/hr Documented By: CLEMENT Doxycycline Hyclate 100 mg/ (Sodium Chloride) 100 mls @ 100 mls/hr IV NOW ONE Stop: 01/16/25 22:09 Last Infusion: 01/17/25 01:00 Dose: Infused Documented By: Admin: 01/16/25 23:53 Dose: 100 mls/hr Documented By: ELBA Metoclopramide HCl (Metoclopramide 10 Mg/2 Ml Inj) 10 mg IV NOW ONE Stop: 01/16/25 14:13 Last Admin: 01/16/25 14:46 Dose: 10 mg Documented By: ELBA Pantoprazole Sodium (Pantoprazole 40 Mg Vial) 40 mg IV NOW ONE Stop: 01/16/25 21:56 Last Admin: 01/16/25 22:05 Dose: 40 mg Documented By: ELBA Vital Signs Vital signs: Vital Signs - 8 hr 01/16/25 20:30 01/16/25 21:00 01/16/25 21:30 Pulse Rate 66 63 67 Respiratory Rate Blood Pressure 122/80 131/78 118/85 Pulse Oximetry 92 93 92 Oxygen Delivery Method Room Air Room Air Room Air 01/16/25 22:00 01/16/25 22:35 01/16/25 23:00 Pulse Rate 63 61 61 Respiratory Rate Blood Pressure 124/83 138/81 130/70 Pulse Oximetry 93 93 92 Oxygen Delivery Method Room Air Room Air Room Air 01/16/25 23:30 01/17/25 00:00 01/17/25 01:34 Pulse Rate 58 L 78 76 Respiratory Rate 16 14 18 Blood Pressure 131/84 138/75 155/89 H Pulse Oximetry 93 92 96 Oxygen Delivery Method Room Air Room Air <Bhargav Gutierrez MD - Last Filed: 01/17/25 04:21> Orders Ordered: Discontinued Medications Dextrose (Dextrose 50 % In Water 25 Gm/50 Ml Syringe) 25 gm IV NOW ONE Stop: 01/16/25 15:32 Last Admin: 01/16/25 15:34 Dose: 25 gm Documented By: CLEMENT Dextrose (Dextrose 25 % In Water 2.5 Gm/10 Ml Syringe) 2.5 gm IV NOW ONE Stop: 01/16/25 19:52 Last Admin: 01/16/25 20:12 Dose: Not Given Documented By: ELBA Dextrose (Dextrose 50 % In Water 25 Gm/50 Ml Syringe) 2.5 gm IV NOW ONE Stop: 01/16/25 20:11 Last Admin: 01/16/25 20:13 Dose: 2.5 gm Documented By: ELBA Diphenhydramine HCl (Diphenhydramine 50 Mg/Ml Vial) 25 mg IV NOW ONE Stop: 01/16/25 14:13 Last Admin: 01/16/25 14:46 Dose: 25 mg Documented By: ELBA Hydromorphone HCl (Hydromorphone Hcl 0.5 Mg/0.5 Ml Syringe) 0.5 mg IV NOW ONE Stop: 01/16/25 14:13 Last Admin: 01/16/25 14:46 Dose: 0.5 mg Documented By: ELBA Hydromorphone HCl (Hydromorphone Hcl 0.5 Mg/0.5 Ml Syringe) 0.5 mg IV NOW ONE Stop: 01/16/25 17:51 Last Admin: 01/16/25 18:03 Dose: 0.5 mg Documented By: KISHA Hydromorphone HCl (Hydromorphone Hcl 0.5 Mg/0.5 Ml Syringe) 0.5 mg IV Q15MIN PRN PRN Reason: Pain, Last Admin: 01/16/25 22:36 Dose: 0.5 mg Documented By: Admin: 01/16/25 20:12 Dose: 0.5 mg Documented By: ELBA Hydromorphone HCl (Hydromorphone Hcl 0.5 Mg/0.5 Ml Syringe) 0.5 mg IV NOW ONE Stop: 01/17/25 00:37 Last Admin: 01/17/25 01:29 Dose: 0.5 mg Documented By: CASANDRA Sodium Chloride (Normal Saline 0.9%) 1,000 mls @ 1,000 mls/hr IV BOLUS ONE Stop: 01/16/25 15:11 Last Infusion: 01/16/25 15:54 Dose: Infused Documented By: Admin: 01/16/25 14:45 Dose: 1,000 mls/hr Documented By: ELBA Dextrose/Lactated Ringer's (Dextrose 5%-Lactated Ringers) 1,000 mls @ 125 mls/hr IV CONT JOSE D Last Infusion: 01/16/25 23:52 Dose: Infused Documented By: Admin: 01/16/25 15:36 Dose: 125 mls/hr Documented By: CLEMENT Doxycycline Hyclate 100 mg/ (Sodium Chloride) 100 mls @ 100 mls/hr IV NOW ONE Stop: 01/16/25 22:09 Last Infusion: 01/17/25 01:00 Dose: Infused Documented By: Admin: 01/16/25 23:53 Dose: 100 mls/hr Documented By: ELBA Metoclopramide HCl (Metoclopramide 10 Mg/2 Ml Inj) 10 mg IV NOW ONE Stop: 01/16/25 14:13 Last Admin: 01/16/25 14:46 Dose: 10 mg Documented By: ELBA Pantoprazole Sodium (Pantoprazole 40 Mg Vial) 40 mg IV NOW ONE Stop: 01/16/25 21:56 Last Admin: 01/16/25 22:05 Dose: 40 mg Documented By: ELBA Vital Signs Vital signs: Vital Signs - 8 hr 01/16/25 20:30 01/16/25 21:00 01/16/25 21:30 Pulse Rate 66 63 67 Respiratory Rate Blood Pressure 122/80 131/78 118/85 Pulse Oximetry 92 93 92 Oxygen Delivery Method Room Air Room Air Room Air 01/16/25 22:00 01/16/25 22:35 01/16/25 23:00 Pulse Rate 63 61 61 Respiratory Rate Blood Pressure 124/83 138/81 130/70 Pulse Oximetry 93 93 92 Oxygen Delivery Method Room Air Room Air Room Air 01/16/25 23:30 01/17/25 00:00 01/17/25 01:34 Pulse Rate 58 L 78 76 Respiratory Rate 16 14 18 Blood Pressure 131/84 138/75 155/89 H Pulse Oximetry 93 92 96 Oxygen Delivery Method Room Air Room Air Medical Decision Making <Kareen Cuenca MD - Last Filed: 01/19/25 08:05> Lab Data 01/16/25 14:10 01/16/25 23:10 Labs: Lab Results 01/16/25 01/16/25 01/16/25 Range/Units 14:10 14:15 15:31 WBC 5.6 (4.5-11.0) X10^3/uL RBC 4.74 (4.0-5.2) X10^6/uL Hgb 12.9 (12.0-16.0) g/dL Hct 39.0 (36-46) % MCV 82.1 (80-100) fL MCH 27.1 (26-34) PG MCHC 33.0 (30-36) % RDW 14.5 (11.6-14.8) % Plt Count 283 (150-400) X10^3/uL Neut % (Auto) 44.5 L (50-75) % Lymph % (Auto) 29.6 (25-40) % [place] % (Auto) 9.5 (3-14) % Eos % (Auto) 15.2 H (2-4) % Baso % (Auto) 1.2 (0-2) % Neut # (Auto) 2500 (0868-4299) /uL Lymph # (Auto) 1600 (5150-7033) /uL [place] # (Auto) 500 (0-900) /uL Eos # (Auto) 800 H (0-450) /uL Baso # (Auto) 100 (0-100) /uL Sodium 138 (137-145) mmol/L Potassium 3.9 (3.4-5.1) mmol/L Chloride 103 (98-107) mmol/L Carbon Dioxide 15 L (22-32) mmol/L BUN 12 (7-17) mg/dL Creatinine 0.69 (0.52-1.04) mg/dL Estimated GFR > 60 (>60) mL/min BUN/Creatinine Ratio 17.4 (6-22) Glucose 52 L (70-99) mg/dL POC Whole Bld Glucose 39 L* (70-99) mg/dL Calcium 9.1 (8.4-10.2) mg/dL Total Bilirubin 0.8 (0.2-1.3) mg/dL AST 26 (14-36) IU/L ALT 15 (<35) IU/L Alkaline Phosphatase 71 (38-126) U/L Total Protein 7.2 (6.3-8.2) g/dL Albumin 4.5 (3.5-5.0) g/dL Globulin 2.7 (1.7-4.1) g/dL Albumin/Globulin Ratio 1.7 (1.0-2.8) Lipase 56 (23-300) U/L Serum , Qual Negative (Negative) Urine Color Straw Urine Appearance Clear Urine pH 5.5 (4.5-8.0) Ur Specific [place] 1.010 (1.000-1.035) Urine Protein Negative (Negative) Urine Glucose (UA) Negative (Negative) g/dL Urine Ketones 3+ H (NEGATIVE) Urine Occult Blood Negative (Negative) Urine Nitrate Negative (Negative) Urine Bilirubin Negative (NEGATIVE) Urine Urobilinogen 0.2 (0.2) E.U./dL Ur Leukocyte Esterase Negative (NEGATIVE) Urine RBC None seen (0-5/HPF) Urine WBC None seen (0-5/HPF) Ur Squamous Epith Cells 1-5 /hpf D (0-5/HPF) Urine Bacteria Occasional (0-1) (None) Ur Culture Indicated? Cult not indicated Vol Urine Centrifuged 10ml (spun) Chlamy pneumoniae PCR (Not Detect) Adenovirus (PCR) (Not Detect) B. pertussis DNA (PCR) (Not Detect) B.parapertussis DNA PCR (Not Detecte) Coronavirus OC43 (PCR) (Not Detect) Coronavirus HKU1 (PCR) (Not Detect) Coronavirus 229E (PCR) (Not Detect) SARS-CoV-2 (PCR) (Not Detecte) Coronavirus NL63 (PCR) (Not Detect) Human Metapneumovir PCR (Not Detect) Influenza Type A (PCR) (Not Detect) Influenza Type B (PCR) (Not Detect) M. pneumoniae (PCR) (Not Detect) Parainfluenza 1 (PCR) (Not Detect) Parainfluenza 2 (PCR) (Not Detect) Parainfluenza 3 (PCR) (Not Detect) Parainfluenza 4 (PCR) (Not Detect) RSV (PCR) (Not Detect) Entero/Rhino (PCR) (Not Detect) 01/16/25 01/16/25 01/16/25 Range/Units 15:52 17:39 19:43 WBC (4.5-11.0) X10^3/uL RBC (4.0-5.2) X10^6/uL Hgb (12.0-16.0) g/dL Hct (36-46) % MCV (80-100) fL MCH (26-34) PG MCHC (30-36) % RDW (11.6-14.8) % Plt Count (150-400) X10^3/uL Neut % (Auto) (50-75) % Lymph % (Auto) (25-40) % [place] % (Auto) (3-14) % Eos % (Auto) (2-4) % Baso % (Auto) (0-2) % Neut # (Auto) (9774-9807) /uL Lymph # (Auto) (6597-9173) /uL [place] # (Auto) (0-900) /uL Eos # (Auto) (0-450) /uL Baso # (Auto) (0-100) /uL Sodium (137-145) mmol/L Potassium (3.4-5.1) mmol/L Chloride (98-107) mmol/L Carbon Dioxide (22-32) mmol/L BUN (7-17) mg/dL Creatinine (0.52-1.04) mg/dL Estimated GFR (>60) mL/min BUN/Creatinine Ratio (6-22) Glucose (70-99) mg/dL POC Whole Bld Glucose 201 H D 92 D 59 L (70-99) mg/dL Calcium (8.4-10.2) mg/dL Total Bilirubin (0.2-1.3) mg/dL AST (14-36) IU/L ALT (<35) IU/L Alkaline Phosphatase (38-126) U/L Total Protein (6.3-8.2) g/dL Albumin (3.5-5.0) g/dL Globulin (1.7-4.1) g/dL Albumin/Globulin Ratio (1.0-2.8) Lipase (23-300) U/L Serum , Qual (Negative) Urine Color Urine Appearance Urine pH (4.5-8.0) Ur Specific [place] (1.000-1.035) Urine Protein (Negative) Urine Glucose (UA) (Negative) g/dL Urine Ketones (NEGATIVE) Urine Occult Blood (Negative) Urine Nitrate (Negative) Urine Bilirubin (NEGATIVE) Urine Urobilinogen (0.2) E.U./dL Ur Leukocyte Esterase (NEGATIVE) Urine RBC (0-5/HPF) Urine WBC (0-5/HPF) Ur Squamous Epith Cells (0-5/HPF) Urine Bacteria (None) Ur Culture Indicated? Vol Urine Centrifuged Chlamy pneumoniae PCR (Not Detect) Adenovirus (PCR) (Not Detect) B. pertussis DNA (PCR) (Not Detect) B.parapertussis DNA PCR (Not Detecte) Coronavirus OC43 (PCR) (Not Detect) Coronavirus HKU1 (PCR) (Not Detect) Coronavirus 229E (PCR) (Not Detect) SARS-CoV-2 (PCR) (Not Detecte) Coronavirus NL63 (PCR) (Not Detect) Human Metapneumovir PCR (Not Detect) Influenza Type A (PCR) (Not Detect) Influenza Type B (PCR) (Not Detect) M. pneumoniae (PCR) (Not Detect) Parainfluenza 1 (PCR) (Not Detect) Parainfluenza 2 (PCR) (Not Detect) Parainfluenza 3 (PCR) (Not Detect) Parainfluenza 4 (PCR) (Not Detect) RSV (PCR) (Not Detect) Entero/Rhino (PCR) (Not Detect) 01/16/25 01/16/25 01/17/25 Range/Units 20:17 23:10 00:05 WBC (4.5-11.0) X10^3/uL RBC (4.0-5.2) X10^6/uL Hgb (12.0-16.0) g/dL Hct (36-46) % MCV (80-100) fL MCH (26-34) PG MCHC (30-36) % RDW (11.6-14.8) % Plt Count (150-400) X10^3/uL Neut % (Auto) (50-75) % Lymph % (Auto) (25-40) % [place] % (Auto) (3-14) % Eos % (Auto) (2-4) % Baso % (Auto) (0-2) % Neut # (Auto) (3812-0316) /uL Lymph # (Auto) (3052-3940) /uL [place] # (Auto) (0-900) /uL Eos # (Auto) (0-450) /uL Baso # (Auto) (0-100) /uL Sodium 138 (137-145) mmol/L Potassium 3.4 (3.4-5.1) mmol/L Chloride 106 (98-107) mmol/L Carbon Dioxide 24 (22-32) mmol/L BUN 7 (7-17) mg/dL Creatinine 0.60 (0.52-1.04) mg/dL Estimated GFR > 60 (>60) mL/min BUN/Creatinine Ratio 11.7 (6-22) Glucose 99 (70-99) mg/dL POC Whole Bld Glucose 106 H (70-99) mg/dL Calcium 8.6 (8.4-10.2) mg/dL Total Bilirubin (0.2-1.3) mg/dL AST (14-36) IU/L ALT (<35) IU/L Alkaline Phosphatase (38-126) U/L Total Protein (6.3-8.2) g/dL Albumin (3.5-5.0) g/dL Globulin (1.7-4.1) g/dL Albumin/Globulin Ratio (1.0-2.8) Lipase (23-300) U/L Serum , Qual (Negative) Urine Color Urine Appearance Urine pH (4.5-8.0) Ur Specific [place] (1.000-1.035) Urine Protein (Negative) Urine Glucose (UA) (Negative) g/dL Urine Ketones (NEGATIVE) Urine Occult Blood (Negative) Urine Nitrate (Negative) Urine Bilirubin (NEGATIVE) Urine Urobilinogen (0.2) E.U./dL Ur Leukocyte Esterase (NEGATIVE) Urine RBC (0-5/HPF) Urine WBC (0-5/HPF) Ur Squamous Epith Cells (0-5/HPF) Urine Bacteria (None) Ur Culture Indicated? Vol Urine Centrifuged Chlamy pneumoniae PCR Not detected (Not Detect) Adenovirus (PCR) Not detected (Not Detect) B. pertussis DNA (PCR) Not detected (Not Detect) B.parapertussis DNA PCR Not detected (Not Detecte) Coronavirus OC43 (PCR) Not detected (Not Detect) Coronavirus HKU1 (PCR) Not detected (Not Detect) Coronavirus 229E (PCR) Not detected (Not Detect) SARS-CoV-2 (PCR) Not detected (Not Detecte) Coronavirus NL63 (PCR) Not detected (Not Detect) Human Metapneumovir PCR Not detected (Not Detect) Influenza Type A (PCR) Not detected (Not Detect) Influenza Type B (PCR) Not detected (Not Detect) M. pneumoniae (PCR) Not detected (Not Detect) Parainfluenza 1 (PCR) Not detected (Not Detect) Parainfluenza 2 (PCR) Not detected (Not Detect) Parainfluenza 3 (PCR) Not detected (Not Detect) Parainfluenza 4 (PCR) Not detected (Not Detect) RSV (PCR) Not detected (Not Detect) Entero/Rhino (PCR) Not detected (Not Detect) Point of Care Testing Glucose POC 59 Point of care testing: Point of Care Testing Glucose POC 59 Imaging Data Upper and lower endoscopy on October 17, 2023: My Impression: Procedure & Clinicians Study performed: EGD and colonoscopy Same procedure as scheduled: Yes Surgeon: Miguel José Procedure Notes Procedure in detail: Surgeon: Miguel José MD Anesthesia: Kenna Ibarra DO Procedure in detail: A timeout was performed. A bite blocked was placed and monitors were attached to the patient. The patient was positioned in the left lateral decubitus position. Sedation was administered. Once the patient was sedated the endoscope was inserted through the bite block and passed through the esophagus and stomach and into the duodenum. Random biopsies were taken from the duodenum with cold forceps. We then withdrew the scope into the stomach. No obvious abnormalities were noted but random biopsies were taken from the antrum with cold forceps. The endoscope was retroflexed and no other abnormalities were seen. The endoscope was straightned and withdrawn into the esophagus. No abnormalities were seen. EGD findings: Grossly normal EGD Next we repositioned the patient for a colonoscopy. A digital rectal exam was performed and was normal. The colonoscope was inserted and advanced to the cecum. The appendiceal orifice was identified and photographed. The terminal ileum was intubated and no abnormalities were noted. Random biopsies were taken with cold forceps. The scope was slowly withdrawn over greater than 6 minutes. No other abnormalities were noted. Random biopsies were taken from the right colon, transverse colon, left colon and rectum with cold forceps biopsies. The scope was retroflexed in the rectum and no other abnormalities were noted. Colonoscopy findings: Normal colonoscopy Total procedural EBL: 5 mL Scope withdrawal time: 12 minutes Sedation minutes: 33 minutes Post-procedure Recommendations: Colonscopy in 10 years Disposition: PACU Signed By:<Electronically signed by Miguel José MD> 10/17/[address] scan - abdomen/pelvis: Radiologist's Impression: PROCEDURE: CT ABDOMEN PELVIS W CON INDICATIONS: LUQ pain TECHNIQUE: After the administration of intravenous contrast, axial sections acquired from the lung bases to the pubic symphysis. Coronal and sagittal reformats were performed. For radiation dose reduction, the following was used: automated exposure control, adjustment of mA and/or kV according to patient size. COMPARISON: [facility], CT, CT ABDOMEN PELVIS W CON, 09/26/2023, 5:42. FINDINGS: Image quality: Diagnostic. Lower Chest: Redemonstration of patchy ground-glass opacities of the bilateral lower lobes and stable left lower lobe nodule. ABDOMEN: Liver: No solid mass. Hepatic steatosis. Gallbladder: No radiopaque gallstones or wall thickening. Biliary ducts: No biliary dilation. Pancreas: No ductal dilation. Spleen: Splenomegaly. Adrenal Glands: No adrenal nodules. Kidneys and Ureters: No hydronephrosis. No solid mass. No complex renal cystic lesion which requires follow up. Stomach and Bowel: Normal colonic caliber, without significant wall thickening. Peritoneum: No abnormal intraperitoneal fluid. No free air. Ventral Wall: No significant ventral hernia. Abdominal Nodes: No retroperitoneal or mesenteric adenopathy by size criteria. Vessels: Aorta and inferior vena cava are normal in size. PELVIS: Pelvic Organs: Unremarkable. Bladder: No bladder wall thickening, accounting for underdistention. Pelvic Nodes: No enlarged lymph nodes. Miscellaneous: No inguinal hernias are seen. Bones: No aggressive osseous abnormality. Visualized osseous structures appear intact without acute fracture or focal destructive lesion. No acute compression fractures of the imaged spine. IMPRESSION: Patchy ground-glass opacities of the bilateral lower lobes which may represent an infectious or inflammatory process. Recommend follow up imaging in 4-6 weeks after treatment to document resolution of findings and/or return to baseline examination. Splenomegaly. Hepatomegaly and hepatic steatosis. Dictated by: Kevin Hunt M.D. on 01/16/2025 at 19:18 MDM Narrative Medical decision making narrative: CC: Left upper quadrant pain Complicating co-morbidities: Exacerbation of a chronic issue to which no definitive diagnosis has been found. Hypothyroidism, depression, she has anxiety medications as well as gabapentin to help with chronic pain and chronic anxiety. She has used lidocaine patches and did not find it particularly helpful. She has been using Naprosyn Tylenol and ibuprofen spread appropriately throughout the day Data collected from: patient Social determinants of health that may influence the patients condition: Patient notes that she has lost at least 8 lb in the last 2 weeks Medical records reviewed: Patient has a large folder with much of her medical records to share Most recent CT scan of her abdomen was November 29 does not show any bony abnormalities such as compression fractures or rib fractures after the fall she describes on November 06. Liver is described as entirely normal. No other acute process has been identified Prior to that she had a CT of the chest abdomen and pelvis with contrast November 12 at [facility] Differential considered: Gastritis/gastric ulcer, pancreatitis, pyloric dysfunction, gallbladder disease, functional pain, Exam documented above, pertinent findings include: Tenderness in the left upper quadrant without clear guarding or rebound Lab Test results independently reviewed as above. Pertinent findings: CBC is unremarkable Chemistries are reassuring with the exception of a blood sugar 52 that then dropped to 39 that was treated with D50 went up to 201 was placed on D5 LR and is now back down to 92 Imaging studies independently reviewed: CT scan does not show acute pathology to explain her pain Re-evaluations: Patient is still having significant abdominal pain. She so far has had fluids, Dilaudid, Reglan, Benadryl. For her hypoglycemia she got 25 g of D50 and is currently on D5 LR at 125 an hour Discussion: 39-year-old woman with severe abdominal pain uncertain etiology. That has been ongoing for an extended period of time. She had upper and lower endoscopies almost a year and a half ago that were unrevealing. Blood work has been unrevealing, CT scan today is unrevealing. Today she had fairly significant hypoglycemia that was symptomatic when she was below 30. She is currently still dropping her blood sugar with D5 running. With the degree of pain that she is having the fact that she has lost 8 lb, having this hypoglycemia needing IV medications for treatment and inability to eat due to severe pain I believe needs more thorough inpatient evaluation with GI consultation and likely repeat endoscopies. Case is reviewed with Dr. Gutierrez in turned over at change of shift with anticipation of transfer to hospital with GI capacity <Bhargav Gutierrez MD - Last Filed: 01/17/25 04:21> Lab Data Lab results reviewed: Yes I reviewed the patient's lab results. Lab results narrative: White blood cell count 5600, hemoglobin 12.9, platelets adequate. Normal renal function, initial carbon dioxide 15, glucose 52, electrolytes normal. Liver functions and lipase normal. Serum albumin 4.7 noted to be normal. HCG negative. Urinalysis pending. Labs: Lab Results 01/16/25 01/16/25 01/16/25 Range/Units 14:10 14:15 15:31 WBC 5.6 (4.5-11.0) X10^3/uL RBC 4.74 (4.0-5.2) X10^6/uL Hgb 12.9 (12.0-16.0) g/dL Hct 39.0 (36-46) % MCV 82.1 (80-100) fL MCH 27.1 (26-34) PG MCHC 33.0 (30-36) % RDW 14.5 (11.6-14.8) % Plt Count 283 (150-400) X10^3/uL Neut % (Auto) 44.5 L (50-75) % Lymph % (Auto) 29.6 (25-40) % [place] % (Auto) 9.5 (3-14) % Eos % (Auto) 15.2 H (2-4) % Baso % (Auto) 1.2 (0-2) % Neut # (Auto) 2500 (2490-9801) /uL Lymph # (Auto) 1600 (8370-7351) /uL [place] # (Auto) 500 (0-900) /uL Eos # (Auto) 800 H (0-450) /uL Baso # (Auto) 100 (0-100) /uL Sodium 138 (137-145) mmol/L Potassium 3.9 (3.4-5.1) mmol/L Chloride 103 (98-107) mmol/L Carbon Dioxide 15 L (22-32) mmol/L BUN 12 (7-17) mg/dL Creatinine 0.69 (0.52-1.04) mg/dL Estimated GFR > 60 (>60) mL/min BUN/Creatinine Ratio 17.4 (6-22) Glucose 52 L (70-99) mg/dL POC Whole Bld Glucose 39 L* (70-99) mg/dL Calcium 9.1 (8.4-10.2) mg/dL Total Bilirubin 0.8 (0.2-1.3) mg/dL AST 26 (14-36) IU/L ALT 15 (<35) IU/L Alkaline Phosphatase 71 (38-126) U/L Total Protein 7.2 (6.3-8.2) g/dL Albumin 4.5 (3.5-5.0) g/dL Globulin 2.7 (1.7-4.1) g/dL Albumin/Globulin Ratio 1.7 (1.0-2.8) Lipase 56 (23-300) U/L Serum , Qual Negative (Negative) Urine Color Straw Urine Appearance Clear Urine pH 5.5 (4.5-8.0) Ur Specific [place] 1.010 (1.000-1.035) Urine Protein Negative (Negative) Urine Glucose (UA) Negative (Negative) g/dL Urine Ketones 3+ H (NEGATIVE) Urine Occult Blood Negative (Negative) Urine Nitrate Negative (Negative) Urine Bilirubin Negative (NEGATIVE) Urine Urobilinogen 0.2 (0.2) E.U./dL Ur Leukocyte Esterase Negative (NEGATIVE) Urine RBC None seen (0-5/HPF) Urine WBC None seen (0-5/HPF) Ur Squamous Epith Cells 1-5 /hpf D (0-5/HPF) Urine Bacteria Occasional (0-1) (None) Ur Culture Indicated? Cult not indicated Vol Urine Centrifuged 10ml (spun) Chlamy pneumoniae PCR (Not Detect) Adenovirus (PCR) (Not Detect) B. pertussis DNA (PCR) (Not Detect) B.parapertussis DNA PCR (Not Detecte) Coronavirus OC43 (PCR) (Not Detect) Coronavirus HKU1 (PCR) (Not Detect) Coronavirus 229E (PCR) (Not Detect) SARS-CoV-2 (PCR) (Not Detecte) Coronavirus NL63 (PCR) (Not Detect) Human Metapneumovir PCR (Not Detect) Influenza Type A (PCR) (Not Detect) Influenza Type B (PCR) (Not Detect) M. pneumoniae (PCR) (Not Detect) Parainfluenza 1 (PCR) (Not Detect) Parainfluenza 2 (PCR) (Not Detect) Parainfluenza 3 (PCR) (Not Detect) Parainfluenza 4 (PCR) (Not Detect) RSV (PCR) (Not Detect) Entero/Rhino (PCR) (Not Detect) 01/16/25 01/16/25 01/16/25 Range/Units 15:52 17:39 19:43 WBC (4.5-11.0) X10^3/uL RBC (4.0-5.2) X10^6/uL Hgb (12.0-16.0) g/dL Hct (36-46) % MCV (80-100) fL MCH (26-34) PG MCHC (30-36) % RDW (11.6-14.8) % Plt Count (150-400) X10^3/uL Neut % (Auto) (50-75) % Lymph % (Auto) (25-40) % [place] % (Auto) (3-14) % Eos % (Auto) (2-4) % Baso % (Auto) (0-2) % Neut # (Auto) (4660-9285) /uL Lymph # (Auto) (8987-4932) /uL [place] # (Auto) (0-900) /uL Eos # (Auto) (0-450) /uL Baso # (Auto) (0-100) /uL Sodium (137-145) mmol/L Potassium (3.4-5.1) mmol/L Chloride (98-107) mmol/L Carbon Dioxide (22-32) mmol/L BUN (7-17) mg/dL Creatinine (0.52-1.04) mg/dL Estimated GFR (>60) mL/min BUN/Creatinine Ratio (6-22) Glucose (70-99) mg/dL POC Whole Bld Glucose 201 H D 92 D 59 L (70-99) mg/dL Calcium (8.4-10.2) mg/dL Total Bilirubin (0.2-1.3) mg/dL AST (14-36) IU/L ALT (<35) IU/L Alkaline Phosphatase (38-126) U/L Total Protein (6.3-8.2) g/dL Albumin (3.5-5.0) g/dL Globulin (1.7-4.1) g/dL Albumin/Globulin Ratio (1.0-2.8) Lipase (23-300) U/L Serum , Qual (Negative) Urine Color Urine Appearance Urine pH (4.5-8.0) Ur Specific [place] (1.000-1.035) Urine Protein (Negative) Urine Glucose (UA) (Negative) g/dL Urine Ketones (NEGATIVE) Urine Occult Blood (Negative) Urine Nitrate (Negative) Urine Bilirubin (NEGATIVE) Urine Urobilinogen (0.2) E.U./dL Ur Leukocyte Esterase (NEGATIVE) Urine RBC (0-5/HPF) Urine WBC (0-5/HPF) Ur Squamous Epith Cells (0-5/HPF) Urine Bacteria (None) Ur Culture Indicated? Vol Urine Centrifuged Chlamy pneumoniae PCR (Not Detect) Adenovirus (PCR) (Not Detect) B. pertussis DNA (PCR) (Not Detect) B.parapertussis DNA PCR (Not Detecte) Coronavirus OC43 (PCR) (Not Detect) Coronavirus HKU1 (PCR) (Not Detect) Coronavirus 229E (PCR) (Not Detect) SARS-CoV-2 (PCR) (Not Detecte) Coronavirus NL63 (PCR) (Not Detect) Human Metapneumovir PCR (Not Detect) Influenza Type A (PCR) (Not Detect) Influenza Type B (PCR) (Not Detect) M. pneumoniae (PCR) (Not Detect) Parainfluenza 1 (PCR) (Not Detect) Parainfluenza 2 (PCR) (Not Detect) Parainfluenza 3 (PCR) (Not Detect) Parainfluenza 4 (PCR) (Not Detect) RSV (PCR) (Not Detect) Entero/Rhino (PCR) (Not Detect) 01/16/25 01/16/25 01/17/25 Range/Units 20:17 23:10 00:05 WBC (4.5-11.0) X10^3/uL RBC (4.0-5.2) X10^6/uL Hgb (12.0-16.0) g/dL Hct (36-46) % MCV (80-100) fL MCH (26-34) PG MCHC (30-36) % RDW (11.6-14.8) % Plt Count (150-400) X10^3/uL Neut % (Auto) (50-75) % Lymph % (Auto) (25-40) % [place] % (Auto) (3-14) % Eos % (Auto) (2-4) % Baso % (Auto) (0-2) % Neut # (Auto) (2110-6894) /uL Lymph # (Auto) (7232-1700) /uL [place] # (Auto) (0-900) /uL Eos # (Auto) (0-450) /uL Baso # (Auto) (0-100) /uL Sodium 138 (137-145) mmol/L Potassium 3.4 (3.4-5.1) mmol/L Chloride 106 (98-107) mmol/L Carbon Dioxide 24 (22-32) mmol/L BUN 7 (7-17) mg/dL Creatinine 0.60 (0.52-1.04) mg/dL Estimated GFR > 60 (>60) mL/min BUN/Creatinine Ratio 11.7 (6-22) Glucose 99 (70-99) mg/dL POC Whole Bld Glucose 106 H (70-99) mg/dL Calcium 8.6 (8.4-10.2) mg/dL Total Bilirubin (0.2-1.3) mg/dL AST (14-36) IU/L ALT (<35) IU/L Alkaline Phosphatase (38-126) U/L Total Protein (6.3-8.2) g/dL Albumin (3.5-5.0) g/dL Globulin (1.7-4.1) g/dL Albumin/Globulin Ratio (1.0-2.8) Lipase (23-300) U/L Serum , Qual (Negative) Urine Color Urine Appearance Urine pH (4.5-8.0) Ur Specific [place] (1.000-1.035) Urine Protein (Negative) Urine Glucose (UA) (Negative) g/dL Urine Ketones (NEGATIVE) Urine Occult Blood (Negative) Urine Nitrate (Negative) Urine Bilirubin (NEGATIVE) Urine Urobilinogen (0.2) E.U./dL Ur Leukocyte Esterase (NEGATIVE) Urine RBC (0-5/HPF) Urine WBC (0-5/HPF) Ur Squamous Epith Cells (0-5/HPF) Urine Bacteria (None) Ur Culture Indicated? Vol Urine Centrifuged Chlamy pneumoniae PCR Not detected (Not Detect) Adenovirus (PCR) Not detected (Not Detect) B. pertussis DNA (PCR) Not detected (Not Detect) B.parapertussis DNA PCR Not detected (Not Detecte) Coronavirus OC43 (PCR) Not detected (Not Detect) Coronavirus HKU1 (PCR) Not detected (Not Detect) Coronavirus 229E (PCR) Not detected (Not Detect) SARS-CoV-2 (PCR) Not detected (Not Detecte) Coronavirus NL63 (PCR) Not detected (Not Detect) Human Metapneumovir PCR Not detected (Not Detect) Influenza Type A (PCR) Not detected (Not Detect) Influenza Type B (PCR) Not detected (Not Detect) M. pneumoniae (PCR) Not detected (Not Detect) Parainfluenza 1 (PCR) Not detected (Not Detect) Parainfluenza 2 (PCR) Not detected (Not Detect) Parainfluenza 3 (PCR) Not detected (Not Detect) Parainfluenza 4 (PCR) Not detected (Not Detect) RSV (PCR) Not detected (Not Detect) Entero/Rhino (PCR) Not detected (Not Detect) Point of Care Testing Glucose POC 59 Point of care testing: Point of Care Testing Glucose POC 59 MDM Narrative Medical decision making narrative: CC: Left upper quadrant pain Complicating co-morbidities: Exacerbation of a chronic issue to which no definitive diagnosis has been found. Hypothyroidism, depression, she has anxiety medications as well as gabapentin to help with chronic pain and chronic anxiety. She has used lidocaine patches and did not find it particularly helpful. She has been using Naprosyn Tylenol and ibuprofen spread appropriately throughout the day Data collected from: patient Social determinants of health that may influence the patients condition: Patient notes that she has lost at least 8 lb in the last 2 weeks Medical records reviewed: Patient has a large folder with much of her medical records to share Most recent CT scan of her abdomen was November 29 does not show any bony abnormalities such as compression fractures or rib fractures after the fall she describes on November 06. Liver is described as entirely normal. No other acute process has been identified Prior to that she had a CT of the chest abdomen and pelvis with contrast November 12 at [facility] Differential considered: Gastritis/gastric ulcer, pancreatitis, pyloric dysfunction, gallbladder disease, functional pain, Exam documented above, pertinent findings include: Tenderness in the left upper quadrant without clear guarding or rebound Lab Test results independently reviewed as above. Pertinent findings: CBC is unremarkable Chemistries are reassuring with the exception of a blood sugar 52 that then dropped to 39 that was treated with D50 went up to 201 was placed on D5 LR and is now back down to 92 Imaging studies independently reviewed: CT scan does not show acute pathology to explain her pain Re-evaluations: Patient is still having significant abdominal pain. She so far has had fluids, Dilaudid, Reglan, Benadryl. For her hypoglycemia she got 25 g of D50 and is currently on D5 LR at 125 an hour Discussion: 39-year-old woman with severe abdominal pain uncertain etiology. That has been ongoing for an extended period of time. She had upper and lower endoscopies almost a year and a half ago that were unrevealing. Blood work has been unrevealing, CT scan today is unrevealing. Today she had fairly significant hypoglycemia that was symptomatic when she was below 30. She is currently still dropping her blood sugar with D5 running. With the degree of pain that she is having the fact that she has lost 8 lb, having this hypoglycemia needing IV medications for treatment and inability to eat due to severe pain I believe needs more thorough inpatient evaluation with GI consultation and likely repeat endoscopies. Case is reviewed with Dr. Gutierrez in turned over at change of shift with anticipation of transfer to hospital with GI capacity 01/16/2025, Matt Beard. Sign-out from Dr. Cuenca. Chart reviewed, patient independently seen by me. Anticipated coordination GI consult for ongoing abdominal pain and significant weight loss, unable to keep oral down despite negative imaging and prior upper/lower endoscopies studies unrevealing. 39-year-old female with ongoing abdominal pain unclear etiology, 8 lb weight lost over the last couple of weeks, unable to keep food down, able to keep some sips fluids down, remote upper and lower endoscopy last year unrevealing, screening labs and CT abdomen and pelvis imaging today also unrevealing. Patient had hypoglycemia that was symptomatic below 30, IV dextrose bolus, infusion of dextrose, sugars in the 50s and 60s, now 119, on D5LR at 125mL/hr. She has received IV fluid bolus, IV dextrose infusion, IV Dilaudid for pain, IV Reglan, IV Zofran. We will add IV Protonix. Sign-out was intent to transfer to GI capable facility for further evaluation, no GI provider on staff here. Bed search for GI capable facility initiated, awaiting call backs. Assumed care. CT abdomen and pelvis. Impressions: ?Patchy ground-glass opacities of the bilateral lower lobes which may represent an infectious or inflammatory process. Recommend follow up imaging in 4-6 weeks after treatment to document resolution of findings and/or return to baseline examination. Splenomegaly. Hepatomegaly and hepatic steatosis. See radiology report. Lab data: White blood cell count 5600, hemoglobin 12.9, platelets adequate. Normal renal function, initial carbon dioxide 15, glucose 52, electrolytes normal. Liver functions and lipase normal. Serum albumin 4.7 noted to be normal. HCG negative. Urinalysis pending. Ground glass changes bilateral bases of unclear significance, respiratory panel pending, blood culture sent, CXR requested, IV doxycycline for atypical pneumonia coverage. Respiratory panel negative. Chest x-ray no acute changes, reference to lung base findings found on CT scan. See radiology report. 2229, case was discussed with [facility] Dr. Shields can consult, consider insulinoma and adding insulin level, this has been ordered (might be a send out lab here). We will consult with hospitalist at [facility]. 0030, case discussed with Dr. Madera hospitalist [facility] who can accept patient for transfer. Discharge Plan Departure Patient Disposition: [facility] Clinical Impression: Abdominal pain, left upper quadrant, Hypoglycemia, Abnormal weight loss Prescriptions: No Action clonidine HCl 0.1 mg tablet 0.05 mg PO BID Qty: 180 0RF dextroamphetamine-amphetamine 20 mg capsule,extended release 24hr 20 mg PO QAM Qty: 30 0RF lorazepam 0.5 mg tablet 0.5 mg PO BID PRN (Reason: panic attack(s)) Qty: 15 0RF eszopiclone 3 mg tablet 3 mg PO BEDTIME PRN (Reason: insomnia ) Qty: 30 0RF buspirone 15 mg tablet 15 mg PO TID Qty: 90 1RF albuterol sulfate 90 mcg/actuation HFA aerosol inhaler 2 puff inhalation Q4-6H PRN (Reason: shortness of breath or wheezing) Qty: 8.5 6RF sertraline 100 mg tablet 200 mg PO DAILY Qty: 180 3RF levothyroxine 150 mcg tablet 150 mcg PO DAILY Qty: 90 2RF naratriptan 1 mg tablet See Rx Instructions PO .COMPLEX Qty: 7 0RF Rx Instructions: take 1 tablet at onset of headache; if no relief, may repeat 1 tablet after at least 4 hrs PO montelukast 10 mg tablet 10 mg PO BEDTIME Qty: 60 3RF gabapentin 300 mg capsule 600 mg PO TID Qty: 180 0RF Rx Instructions: THIS MEDICATION CAN BE SEDATING loratadine [Claritin] 10 mg tablet 10 mg PO DAILY promethazine 25 mg tablet 25 mg PO Q6H PRN (Reason: nausea and vomiting) Qty: 120 0RF Tylenol Extra Strength 500 mg powder in packet 1,000 mg PO Q6H PRN lidocaine 5 % adhesive patch,medicated See Rx Instructions topical .COMPLEX Qty: 30 0RF Rx Instructions: leave on most painful area for up to 12 hrs topical ondansetron 4 mg tablet,disintegrating 4 mg PO Q8H PRN (Reason: nausea and vomiting) Qty: 20 0RF cyclobenzaprine 10 mg tablet 10 mg PO 3XD PRN (Reason: muscle spasm) fluticasone propionate [Flonase Allergy Relief] 50 mcg/actuation spray,suspension 1 spray intranasal DAILY Rx Instructions: administer into each nostril budesonide-formoterol [Symbicort] 160-4.5 mcg/actuation HFA aerosol inhaler 2 puff inhalation BID Qty: 10.2 5RF Referrals: Vicky Power, [employer] [Primary Care Provider, Family Practice]
[2025-01-16 14:20] LABS: Add Manual Diff / Slide Review NO; Hematocrit 39.0 % (36-46); Hemoglobin 12.9 g/dL (12.0-16.0); Lymphocytes Absolute Auto 1600 /uL (1100-4500); Mean Corpuscular HGB Conc 33.0 % (30-36); Mean Corpuscular Hemoglobin 27.1 PG (26-34); Mean Corpuscular Volume 82.1 fL (80-100); Platelet Count 283 X10^3/uL (150-400)
[2025-01-16 14:28] LABS: Alanine Aminotransferase 15 IU/L (<35); Albumin 4.5 g/dL (3.5-5.0); Albumin Globulin Ratio 1.7 (1.0-2.8); Alkaline Phosphatase 71 U/L (38-126); Blood Urea Nitrogen 12 mg/dL (7-17); Calcium 9.1 mg/dL (8.4-10.2); Carbon Dioxide 15 mmol/L (22-32); Chloride 103 mmol/L (98-107); Estimated Glomerular Filt Rate > 60 mL/min (>60); Globulin 2.7 g/dL (1.7-4.1); Glucose 52 mg/dL (70-99); HEMOLYSIS < 15 (0-50); Potassium 3.9 mmol/L (3.4-5.1); Sodium 138 mmol/L (137-145); Total Protein 7.2 g/dL (6.3-8.2)
[2025-01-16] MEDS: SODIUM CHLORIDE 0.9% 1,000 ML 1000 ML IV (14:45)
[2025-01-16] MEDS: diphenhydrAMINE 50 MG/ML VIAL 25 MG IV (14:46)
[2025-01-16] MEDS: METOCLOPRAMIDE 10 MG/2 ML INJ IV (14:46)
[2025-01-16] MEDS: DEXTROSE 50 % IN WATER 25 GM/50 ML SYRINGE IV ×2 (15:34→20:13)
[2025-01-16] MEDS: DEXTROSE 5%-LACTATED RINGERS 1,000 ML 125 ML IV (15:36)
--- NOTE | 2025-01-16 15:44 | PC.NURSE ---
This RN was looking at labs and noticed that the blood glucose was 51, JORGE Weiss checked blood sugar at 1530 and it was 39. Patient didn't think they could tolerate PO fluids, this RN got orders for D50, see AUG. Patients blood sugar is now 201 @ 1554
--- NOTE | 2025-01-16 18:00 | DI.CT.S_ITS ---
PROCEDURE: CT ABDOMEN PELVIS W CON INDICATIONS: LUQ pain TECHNIQUE: After the administration of intravenous contrast, axial sections acquired from the lung bases to the pubic symphysis. Coronal and sagittal reformats were performed. For radiation dose reduction, the following was used: automated exposure control, adjustment of mA and/or kV according to patient size. COMPARISON: [facility], CT, CT ABDOMEN PELVIS W CON, 09/26/2023, 5:42. FINDINGS: Image quality: Diagnostic. Lower Chest: Redemonstration of patchy ground-glass opacities of the bilateral lower lobes and stable left lower lobe nodule. ABDOMEN: Liver: No solid mass. Hepatic steatosis. Gallbladder: No radiopaque gallstones or wall thickening. Biliary ducts: No biliary dilation. Pancreas: No ductal dilation. Spleen: Splenomegaly. Adrenal Glands: No adrenal nodules. Kidneys and Ureters: No hydronephrosis. No solid mass. No complex renal cystic lesion which requires follow up. Stomach and Bowel: Normal colonic caliber, without significant wall thickening. Peritoneum: No abnormal intraperitoneal fluid. No free air. Ventral Wall: No significant ventral hernia. Abdominal Nodes: No retroperitoneal or mesenteric adenopathy by size criteria. Vessels: Aorta and inferior vena cava are normal in size. PELVIS: Pelvic Organs: Unremarkable. Bladder: No bladder wall thickening, accounting for underdistention. Pelvic Nodes: No enlarged lymph nodes. Miscellaneous: No inguinal hernias are seen. Bones: No aggressive osseous abnormality. Visualized osseous structures appear intact without acute fracture or focal destructive lesion. No acute compression fractures of the imaged spine. IMPRESSION: Patchy ground-glass opacities of the bilateral lower lobes which may represent an infectious or inflammatory process. Recommend follow up imaging in 4-6 weeks after treatment to document resolution of findings and/or return to baseline examination. Splenomegaly. Hepatomegaly and hepatic steatosis. Dictated by: Kevin Hunt M.D. on 01/16/2025 at 19:18 Approved by: Kevin Hunt M.D. on 01/16/2025 at 19:22
[2025-01-16 18:51] LABS: Lipase 56 U/L (23-300); Pregnancy Test Serum,Qual Negative (Negative)
--- NOTE | 2025-01-16 20:30 | PC.NURSE ---
Patients blood sugar rechecked at 1943 and found to be 59, Dr Gutierrez aware, upped the rate of D5LR to 150ml/hr and to give 2.5g of D50 in water see AUG. Patients sugar at 2017 is 106. Patient is encouraged to eat applesauce and drink juice, patient is able to tolerate drinking apple jucie and took three bites of the apple sauce and stopped, stating that the pain is getting worse the more she eats.
[2025-01-16] MEDS: PANTOPRAZOLE 40 MG VIAL IV (22:05)
--- NOTE | 2025-01-16 22:12 | DI.RAD.S_ITS ---
PROCEDURE: XR CHEST 1V INDICATIONS: ground glass changes bases on CT Abd TECHNIQUE: One view of the chest was acquired. COMPARISON: [facility], CR, XR CHEST 2V, 11/16/2024, 15:20. [facility], CR, XR CHEST 1V, 09/19/2023, 14:17. FINDINGS: Surgical changes and devices: None. Lungs and pleura: Lungs are clear. No pleural effusions or pneumothorax. Mediastinum: Mediastinal contours appear normal. Heart size is normal. Bones and chest wall: No suspicious bony lesions. Overlying soft tissues appear unremarkable. IMPRESSION: No acute cardiopulmonary abnormality is seen. Lung base findings are better evaluated on same-day CT. Dictated by: José Miguel Segura M.D. on 01/16/2025 at 22:36 Approved by: José Miguel Segura M.D. on 01/16/2025 at 22:37
[2025-01-16 22:43] LABS: Appearance Urine UA CLEAR; Bilirubin Urine UA NEGATIVE (NEGATIVE); Color Urine UA Straw; Glucose Urine UA NEGATIVE (Negative); Ketones Urine UA 3+ (NEGATIVE); Leukocyte Esterase Urine UA NEGATIVE (NEGATIVE); Nitrite Urine UA NEGATIVE (Negative); Occult Blood Urine UA NEGATIVE (Negative); Protein Urine UA NEGATIVE (Negative); Specific Gravity Urine UA 1.010 (1.000-1.035); Urobilinogen Urine UA 0.2 E.U./dL (0.2); pH Urine UA 5.5 (4.5-8.0)
[2025-01-16 22:44] LABS: Culture Indicated Urine Cult Not Indicated
[2025-01-16 23:47] LABS: Blood Urea Nitrogen 7 mg/dL (7-17); Carbon Dioxide 24 mmol/L (22-32); Chloride 106 mmol/L (98-107); Estimated Glomerular Filt Rate > 60 mL/min (>60); HEMOLYSIS < 15 (0-50); Potassium 3.4 mmol/L (3.4-5.1); Sodium 138 mmol/L (137-145)
[2025-01-16 23:53] LABS: Calcium 8.6 mg/dL (8.4-10.2); Glucose 99 mg/dL (70-99)
[2025-01-16] MEDS: DOXYCYCLINE 100 MG in SODIUM CHLORIDE 0.9% 100 ML IV (23:53)
[2025-01-17] VITALS: BP 138/75; PULSE 78; RESP 14; O2SAT 92
[2025-01-17 01:06] LABS: Coronavirus NL 63 Not Detected (Not Detect); SARS- CoV-2 Not Detected (Not Detecte)
[2025-01-17 01:34] VITALS: BP 155/89; PULSE 76; RESP 18; O2SAT 96
--- NOTE | 2025-01-17 01:51 | PC.NURSE ---
JOSE F paperwork sent with patient
[2025-01-21 14:10] LABS: Insulin Level Total 4.0 uIU/mL (2.6-24.9)
== END 2025-01-17 01:51 | disposition short-term general hospital (02) ==
PROVIDERS: Emergency Medicine; Emergency Provider Emergency Medicine; PCP Nurse Practitioner Family
DX: R10.12 Left upper quadrant pain (principal); R11.2 Nausea with vomiting, unspecified; E16.2 Hypoglycemia, unspecified; R63.4 Abnormal weight loss; Z68.22 Body mass index [BMI] 22.0-22.9, adult
CPT/HCPCS: 36415; 71045; 74177; 80048; 80053; 81001; 82962; 83525; 83690; 84703; 85025; 87040; 87633; 96361; 96365; 96375; 96376; 99214; 99284; J1171; J1200; J2470; J2765; J7121; Q9967

== ENCOUNTER → 2025-01-23 13:27 | Outpatient (CLI) | payer OTHER, SELFPAY ==
[2025-01-23 15:23] LABS: Free T3, Triiodothyronine Free 4.35 pg/mL (2.77-5.27); Free T4, Direct Thyroxine 1.83 ng/dL (0.78-2.19)
[2025-01-23 15:48] LABS: Ferritin 23 ng/mL (6-137)
== END ==
PROVIDERS: PCP Nurse Practitioner Family; Referring Provider Nurse Practitioner Family; Visit Provider Nurse Practitioner Family
DX: E03.8 Other specified hypothyroidism (principal); E61.1 Iron deficiency; R19.7 Diarrhea, unspecified
CPT/HCPCS: 36415; 82728; 83516; 84439; 84445; 84481; 86376; 86800

== ENCOUNTER 2025-02-22 09:45 | Outpatient (RCR) | payer OTHER, SELFPAY ==
--- NOTE | 2025-01-15 15:15 | PT.OIE ---
Current Diagnoses Pain in left shoulder (01/15/25) Weakness (01/15/25) Past Medical History (Last Reviewed 11/29/24 @ 14:01 by Sandhya Fortune PA-C) Acute pain due to injury ADHD Allergies Anxiety (~2004) Asthma Attention and concentration deficit Bipolar 1 disorder (~2016) Chicken pox (~1992) Chronic back pain (~2011) Conjunctivitis Corneal abrasion, left (~2017) Corneal abrasion, right (~2017) Depression (~2004) Dyshidrotic hand dermatitis Eczema (~2020) Eosinophilic asthma Exercise-induced asthma Generalized anxiety disorder with panic attacks Hearing loss (~1994) Herpes (~2007) History of recurrent ear infection (~1984) History of urinary incontinence (~2021) Hyperthyroidism Hypothyroid (~2001) Insomnia due to mental disorder Irregular menstrual cycle Lipid screening Lumbar radiculopathy Lumbar spondylosis Major depressive disorder, recurrent, moderate Migraine (~2009) Nightmares Perforation of right tympanic membrane due to otitis media Pneumonia PTSD (post-traumatic stress disorder) Pyelonephritis (~2014) Restless leg syndrome Right otitis media with effusion Ruptured tympanic membrane Seizure Substance abuse (~2002) Urinary tract infection (~2014) Vasovagal syncope (~2009) Past Surgical History (Last Reviewed 11/29/24 @ 14:01 by Sandhya Fortune PA-C) Adverse effect of anesthesia Ganglion cyst of dorsum of left wrist (~2012) History of adenoidectomy (~2001) History of discectomy (~2014) History of placement of ear tubes (~1989) History of skin graft History of tympanoplasty of right ear (~2017) Hx of tonsillectomy (~2003) Visit Care Team Role Provider Type Vicky Power [facility] HEALTH[facility] Attending Provider Advanced [employer] Operations Consultant Family Provider Primary Care Provider Referring Provider Specialty: Family Practice Address: [address] [place] [address], [id number] Phone: Fax: Email: [email or web address] Physical Therapy Initial Evaluation PT OP: Cervical/Upper Extremity Start: 01/15/25 13:37 Freq: Status: Active Protocol: Document 01/15/25 13:38 SAK (Rec: 01/15/25 15:13 SAK Laptop) Out-Patient Physical Therapy Visit Information Visit Information Visit Type Initial Evaluation Visit Start Time 13:38 Visit Stop Time 13:40 Visit Number 1 Evaluation Information Evaluation Date 01/15/25 Current Condition History of Current Condition Onset Date December 07, 2024 Current Complaints left sided pain shoulder, neck, lateral thorax History of Current Fell onto left side of shoulder and entire left side, Condition had 1 y/o in arms. Went to doctor, then ER. New diagnosis of Ehler's Danlo, still awaiting appointment with cathode ray tube assembler. Doing AIP protocol for assessment of dietary contributions to symptoms. Pain is constant, aggravated by movement. Reports clicking of clavicale both at sternum and shoulder, nausea feeling with clicking. Has been a bout of disautonanomia, has panic attacks, only ice and laying down is helpful. Also doing cold plunges 2-3 days/wk. Has 2 children under 5, and 3 dogs to care for. Has assistance of ex partner in the home. Prednisone not helpful, takes regular Tylenol and Ibuprofen, minimally helpful. NOthing has helped so far. Sees therapist weekly also psychiatrist. Does grounding, breathwork, previously yoga though has backed off due to ED diagnosis. All movements of shoulder helpful especially quick movements. Pt right handed. Occasional shooting pain into left UE. Clicking and pain with reaching overhead and behind her back. Tried KT tape. Can't use left arm to drive, difficulty with turning head to drive. Prior Treatments and Imaging showed pulmonary effusion. MRI shoulder showed Tests tear, saw orthopedist, not surgical candidate. Treatment Goals Patient/Caregiver dec pain, regain full functional use of left UE. Goals OP-PT Pain Assessment Location left shoulder, SC,AC, ribcage Pain Intensity 8 Patient Questionnaires Quick Dash- Upper Extremity Quick Dash UE Score 66 Manual Assessments Soft Tissue Assessment Soft Tissue Mobility UT tightness left greater than right Assessment Posture Evaluation Position Sitting Head/C-Spine Posture Forward Head T-Spine Posture Increased Kyphosis Shoulder Posture (L) Rounded,(R) Rounded Arm Posture (L) Internally Rotated,(R) Internally Rotated Palpation Assessment Location left shoulder, clavicle, lateral ribcage Palpation Findings Muscle Guarding,Tenderness Cervical Spine Range of Motion Cervical Spine Active ROM Limitations Pain Comments mod decrease all motions Shoulder Goniometric Range of Motion Shoulder Left Active Shoulder ROM WFL No Flexion 160 Extension 25 Abduction 155 External Rotation at 95 45 degrees Abduction Internal Rotation T4 Behind Back (text) Right Active Shoulder ROM WFL Yes Elbow/Forearm Range of Motion Elbow/Forearm del Elbow/Forearm ROM Yes WFL Shoulder Strength Shoulder Manual Muscle Testing Left Flexion 3+ Fair+ Extension 3+ Fair+ Abduction (C5) 3+ Fair+ Adduction 3+ Fair+ External Rotation 3+ Fair+ Internal Rotation 3+ Fair+ Comments limited by pain Right Flexion 5 Normal Extension 5 Normal Abduction (C5) 5 Normal Adduction 5 Normal External Rotation 5 Normal Internal Rotation 5 Normal Elbow/Forearm Strength Elbow and Forearm Manual Muscle Testing Left Flexion (C6) 4- Good- Extension (C7) 4- Good- Comments limited by pain Right Flexion (C6) 5 Normal Extension (C7) 5 Normal Self-Care/Home Management Treatment Education Patient Education Home Exercise Program,Pain Management,Posture Other Education issued written HO, cautioned to discontinue if unable to do without pain Electric Stimulation Electric Stimulation Interferential Current (IFC) Body Location left shoulder Intensity 6 Target/Sweep Sweep Patient Position Hooklying Combined With Heat/ Cold Pack Cold Physical Therapy Assessment Rehab Potential Rehabilitation Good Potential Evaluation Complexity Number of Personal 1-2 Factors/ Comorbidities Clinical Evolving Presentation at Evaluation Impairments Impairments Activity Tolerance,Functional Activities,Pain Goals Four Impairment difficulty turning head sufficient for safe driving President And Chief Operating Officer Goal (LTG) Patient will demonstrate full active cervical rotation to allow her to turn her head for safe driving LTG Duration 04/17/25 Three Impairment unable to exercise President And Chief Operating Officer Goal (LTG) Patient will be able to resume prior exercise activities without an increase in pain and be able to demonstrate all HEP ex without cues for technique LTG Duration 04/17/25 Two Impairment Quickdash disability Index score 66% Short Term Goal (STG Improve Quickdash disability Index score to no greater ) than 50% as measure of improved left UE function STG Duration 03/01/25 [facility] Goal (LTG) Improve Quickdash disability Index score to no greater than 20% as measure of improved left UE function LTG Duration 04/17/25 [employer] pain with reaching overhead, behind back, across her body, & lift > 2# President And Chief Operating Officer Goal (LTG) Patient will be able to reach overhead, behind her back , across her body, and be able to lift her children with no more than 2/10 pain. LTG Duration 04/17/25 Assessment Summary Assessment Patient presents to PT with function-limiting pain left shoulder, clavicle, thorax since fall 12/07/24 in which she fell onto hardwood floors on left side while holding and protecting her 1y/o from impact. She has been to ER multiple times due to the severity of the pain. Has been taking Tylenol and Ibuprofen with minimal help. Reports laying down and ice is the most helpful. Doing cold plunges 2-3x/week. At this time pain 8/10, increases with movement, reaching overhead, behind her back, or lifting more than 2#. Reports increase in pain with attempts at taking deep breath. MRA left shoulder: No evidence of labral tear. Slightly increased signal in the supraspinatus tendon. MRA left shoulder: No evidence of labral tear. Slightly increased signal in the supraspinatus tendon. X-rays obtained of her left shoulder demonstrate no evidence of fracture, dislocation or soft tissue lesion . She has minimal AC joint arthritis. MRA left shoulder: No evidence of labral tear, slightly increased signal in the supraspinatus tendon. Patient is tender to palpation globally left shoulder, SC and AC joints, left lateral ribcage. Proximal clavicle more prominent left than right with audible and palpable clicking both SC and AC joints with elevation. Strength testing difficult due to high level of pain with all resisted motions. Drop arm negative. She is currently being worked up for new Ehler's Danlo diagnosis. She has a history of chronic pain. Feel patient would benefit from PT to decrease her pain, promote healing, and help her regain full active use of her left UE. POC was discussed and patient was in agreement. Physical Therapy Plan Frequency and Duration Frequency of 2x/Week Treatment Duration of 12 treatment (weeks) Plan of Care Start 01/15/25 Date Plan of Care End 04/17/25 Date Therapeutic Interventions Therapeutic Home Exercise Program,Manual Therapy,Patient/Caregiver Interventions Education,Self-Care/Home Management,Soft Tissue Mobilization,Taping,Therapeutic Activities,Therapeutic Exercises Modalities Cold Pack/Ice Massage,Electric Stimulation,Hot Packs, Infrared Therapy,Iontophoresis,Ultrasound Next Visit Focus/Plan Next Note Type Treatment Note Next Visit Plan Assess skin response to tape test, and barrington to gentle HEP. Review HEP, gentle STM, modalities PRN possibly to include KT tape.
--- NOTE | 2025-01-15 16:29 | PT.OPPOC ---
Physical, Occupational & Speech Therapy At [facility] Current Diagnoses Pain in left shoulder (01/15/25) Weakness (01/15/25) Visit Care Team Role Provider Type LUIS ALBERTO ReyPJoe Attending Provider Advanced Chicken Dresser Family Provider Primary Care Provider Referring Provider Specialty: Family Practice Address: [address] [place] [address], [id number] Phone: Fax: Email: [email or web address] Plan Of Care PT OP: Cervical/Upper Extremity Start: 01/15/25 13:37 Freq: Status: Active Protocol: Document 01/15/25 13:38 SAK (Rec: 01/15/25 15:13 SAK Laptop) Out-Patient Physical Therapy Visit Information Visit Information Visit Type Initial Evaluation Visit Start Time 13:38 Visit Stop Time 13:40 Visit Number 1 Evaluation Information Evaluation Date 01/15/25 Current Condition History of Current Condition Onset Date December 07, 2024 Current Complaints left sided pain shoulder, neck, lateral thorax History of Current Fell onto left side of shoulder and entire left side, Condition had 1 y/o in arms. Went to doctor, then ER. New diagnosis of Ehler's Danlo, still awaiting appointment with staff antisubmarine officer. Doing AIP protocol for assessment of dietary contributions to symptoms. Pain is constant, aggravated by movement. Reports clicking of clavicale both at sternum and shoulder, nausea feeling with clicking. Has been a bout of disautonanomia, has panic attacks, only ice and laying down is helpful. Also doing cold plunges 2-3 days/wk. Has 2 children under 5, and 3 dogs to care for. Has assistance of ex partner in the home. Prednisone not helpful, takes regular Tylenol and Ibuprofen, minimally helpful. NOthing has helped so far. Sees therapist weekly also psychiatrist. Does grounding, breathwork, previously yoga though has backed off due to ED diagnosis. All movements of shoulder helpful especially quick movements. Pt right handed. Occasional shooting pain into left UE. Clicking and pain with reaching overhead and behind her back. Tried KT tape. Can't use left arm to drive, difficulty with turning head to drive. Prior Treatments and Imaging showed pulmonary effusion. MRI shoulder showed Tests tear, saw orthopedist, not surgical candidate. Treatment Goals Patient/Caregiver dec pain, regain full functional use of left UE. Goals OP-PT Pain Assessment Location left shoulder, SC,AC, ribcage Pain Intensity 8 Patient Questionnaires Quick Dash- Upper Extremity Quick Dash UE Score 66 Manual Assessments Soft Tissue Assessment Soft Tissue Mobility UT tightness left greater than right Assessment Posture Evaluation Position Sitting Head/C-Spine Posture Forward Head T-Spine Posture Increased Kyphosis Shoulder Posture (L) Rounded,(R) Rounded Arm Posture (L) Internally Rotated,(R) Internally Rotated Palpation Assessment Location left shoulder, clavicle, lateral ribcage Palpation Findings Muscle Guarding,Tenderness Cervical Spine Range of Motion Cervical Spine Active ROM Limitations Pain Comments mod decrease all motions Shoulder Goniometric Range of Motion Shoulder Measured in Degrees Left Active Shoulder ROM WFL No Flexion 160 Extension 25 Abduction 155 External Rotation at 95 45 degrees Abduction Internal Rotation T4 Behind Back (text) Right Active Shoulder ROM WFL Yes Elbow/Forearm Range of Motion Elbow/Forearm Measured in Degrees del Elbow/Forearm ROM Yes WFL Shoulder Strength Shoulder Manual Muscle Testing Left Flexion 3+ Fair+ Extension 3+ Fair+ Abduction (C5) 3+ Fair+ Adduction 3+ Fair+ External Rotation 3+ Fair+ Internal Rotation 3+ Fair+ Comments limited by pain Right Flexion 5 Normal Extension 5 Normal Abduction (C5) 5 Normal Adduction 5 Normal External Rotation 5 Normal Internal Rotation 5 Normal Elbow/Forearm Strength Elbow and Forearm Manual Muscle Testing Left Flexion (C6) 4- Good- Extension (C7) 4- Good- Comments limited by pain Right Flexion (C6) 5 Normal Extension (C7) 5 Normal Self-Care/Home Management Treatment Education Patient Education Home Exercise Program,Pain Management,Posture Other Education issued written HO, cautioned to discontinue if unable to do without pain Electric Stimulation Electric Stimulation Interferential Current (IFC) Body Location left shoulder Intensity 6 Target/Sweep Sweep Patient Position Hooklying Combined With Heat/ Cold Pack Cold Physical Therapy Assessment Rehab Potential Rehabilitation Good Potential Evaluation Complexity Number of Personal 1-2 Factors/ Comorbidities Clinical Evolving Presentation at Evaluation Impairments Impairments Activity Tolerance,Functional Activities,Pain Goals Four Impairment difficulty turning head sufficient for safe driving Hospital Carrier Goal (LTG) Patient will demonstrate full active cervical rotation to allow her to turn her head for safe driving LTG Duration 04/17/25 Three Impairment unable to exercise Hospital Carrier Goal (LTG) Patient will be able to resume prior exercise activities without an increase in pain and be able to demonstrate all HEP ex without cues for technique LTG Duration 04/17/25 Two Impairment Quickdash disability Index score 66% Short Term Goal (STG Improve Quickdash disability Index score to no greater ) than 50% as measure of improved left UE function STG Duration 03/01/25 Hospital Carrier Goal (LTG) Improve Quickdash disability Index score to no greater than 20% as measure of improved left UE function LTG Duration 04/17/25 [employer] pain with reaching overhead, behind back, across her body, & lift > 2# Hospital Carrier Goal (LTG) Patient will be able to reach overhead, behind her back , across her body, and be able to lift her children with no more than 2/10 pain. LTG Duration 04/17/25 Assessment Summary Assessment Patient presents to PT with function-limiting pain left shoulder, clavicle, thorax since fall 12/07/24 in which she fell onto hardwood floors on left side while holding and protecting her 1y/o from impact. She has been to ER multiple times due to the severity of the pain. Has been taking Tylenol and Ibuprofen with minimal help. Reports laying down and ice is the most helpful. Doing cold plunges 2-3x/week. At this time pain 8/10, increases with movement, reaching overhead, behind her back, or lifting more than 2#. Reports increase in pain with attempts at taking deep breath. MRA left shoulder: No evidence of labral tear. Slightly increased signal in the supraspinatus tendon. MRA left shoulder: No evidence of labral tear. Slightly increased signal in the supraspinatus tendon. X-rays obtained of her left shoulder demonstrate no evidence of fracture, dislocation or soft tissue lesion . She has minimal AC joint arthritis. MRA left shoulder: No evidence of labral tear, slightly increased signal in the supraspinatus tendon. Patient is tender to palpation globally left shoulder, SC and AC joints, left lateral ribcage. Proximal clavicle more prominent left than right with audible and palpable clicking both SC and AC joints with elevation. Strength testing difficult due to high level of pain with all resisted motions. Drop arm negative. She is currently being worked up for new Ehler's Danlo diagnosis. She has a history of chronic pain. Feel patient would benefit from PT to decrease her pain, promote healing, and help her regain full active use of her left UE. POC was discussed and patient was in agreement. Physical Therapy Plan Frequency and Duration Frequency of 2x/Week Treatment Duration of 12 treatment (weeks) Plan of Care Start 01/15/25 Date Plan of Care End 04/17/25 Date Therapeutic Interventions Therapeutic Home Exercise Program,Manual Therapy,Patient/Caregiver Interventions Education,Self-Care/Home Management,Soft Tissue Mobilization,Taping,Therapeutic Activities,Therapeutic Exercises Modalities Cold Pack/Ice Massage,Electric Stimulation,Hot Packs, Infrared Therapy,Iontophoresis,Ultrasound Next Visit Focus/Plan Next Note Type Treatment Note Next Visit Plan Assess skin response to tape test, and barrington to gentle HEP. Review HEP, gentle STM, modalities PRN possibly to include KT tape. Plan of Care Dates Plan of Care Start Date 01/15/25 Plan of Care End Date 04/17/25 Electronically Signed by: Pallavi Shahid, PT 01/15/25 2944 If you are in agreement with this Plan of Care, please return a signed and dated copy. I have reviewed this Plan of Care and certify that the skilled therapy services above are required to meet the patient?s needs. Physician Signature Date Printed Name and Credentials Clinical Instructor Signature Printed Name and Credentials
--- NOTE | 2025-01-17 09:12 | PT-OP ANOTE ---
Per front office staff, pt. called just after appt time (9:00) to report she had gone to ED and been transferred to another hospital, no details given.
--- NOTE | 2025-01-23 11:49 | PT-OP ANOTE ---
Addendum entered and electronically signed by Yesenia Lezama PTA 01/23/25 12:11: Pt arrived 30 min late for appt due to at provider appt. She stated medical provider said was pleased she was seeing PT, didn't tell her if had any restrictions with current abdominal pain. 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 Next scheduled PT visit is 02/12/25. COMPARATIVE SOCIOLOGY PROFESSOR will call pt to let her know about Fri appt. Original Note: Pt did not show for appt today. COMPARATIVE SOCIOLOGY PROFESSOR chart reviewed, pt had a conflicting follow up appt with provider since ER visit 01/16 to 01/19/25 at [facility] (noted scanned records). COMPARATIVE SOCIOLOGY PROFESSOR left message understood reasoning of missed appt and discussed left message with provider's office seen today ([address]) asking if is ok for her to attend PT upcoming appts or if suggesting hold PT for now and if so how long, COMPARATIVE SOCIOLOGY PROFESSOR didn't know if needed to ask for another script for PT. Inquring safety of pt, if her appt is considered PT if change in medical status re-eval so can continue to see COMPARATIVE SOCIOLOGY PROFESSOR for tx. COMPARATIVE SOCIOLOGY PROFESSOR awaiting message back from provider and or looking at feedback added to today's medical appt documentation.
--- NOTE | 2025-01-25 13:03 | PT-OP ANOTE ---
Pt DNS for appt, left message not sure if someone from office called to state was ok to continue appt today. SPoke toscheduler regarding NS but maybe pt didn't know could come today.
--- NOTE | 2025-02-01 11:35 | PT.OTN ---
Current Diagnoses Pain in left shoulder (02/01/25) Weakness (02/01/25) Physical Therapy Treatment Note PT OP: Cervical/Upper Extremity Start: 01/15/25 13:37 Freq: Status: Active Protocol: Document 02/01/25 10:46 SP (Rec: 02/01/25 11:38 SP [id number]) Out-Patient Physical Therapy Visit Information Visit Information Visit Type Treatment Note Visit Start Time 10:46 Visit Stop Time 11:35 Visit Number 2 Number of FIELD MARKETING LEAD Visits 1 Progress Note Due 02/14/25 OP-PT Subjective Patient Comments Patient Comments Pt reports abdominals feeling better since ED and follow up appt with Dr Vicky Power, cleared to continue see PT. Arrives today continued pain L anterior ribcage under arm radiates down L arm to pinky finger and not sure what doing irritated it. She states PT and her know clavicle not good positioning contributing. Therapeutic Exercises Supine Exercises Cervical Rotation Supine Exercise Name self activity Side bilateral Resistance AROM Reps/Minutes 3 reps each side post manual Comments tight on L when turns left scap traction Supine Exercise Name added to HEP- declined HO Resistance table Equipment Used 1 pillow under head, few under BLEs, hands on lap Reps/Minutes 5 SH x10 throughout tx Comments cued back toward table and on foam roller chin tuck Supine Exercise Name added to HEP- declined HO Equipment Used 1 pillow under head, few under BLEs, hands on lap Reps/Minutes 5 SH x10 throughout tx Sitting Exercises Neck stretching Sitting Exercise verbal review self performing gentle- recheck next tx Name if tolerated Comments only range pnfree (discomfort L>R) scap retraction Sitting Exercise discussion include sitting Name Comments with breath to improved clavicle and ribcage mobility with good spinal alig Manual Therapy Treatment Consent Patient gave verbal Yes consent for manual treatment Soft Tissue Mobilization Neck Body Location B suboccipital, SOR, B SCM, B scalene, L pec holli&minor, L subclavius Mobilization Type Myofascial Release,Rolling,Sustained Pressure,Other Intensity/Depth extremely light Body Position Hooklying Comments broad STMs extremely light with ed self application, MWM with breath over muscle and or ribs lateral sternum Ribcage & intercostals Body Location L 3-9 Mobilization Type Myofascial Release,Rolling,Sustained Pressure,Other Intensity/Depth extremely light Body Position modified SL support pillow at back/pillows between knees Comments very light STMs, hold MWM with breath Joint Mobilizations SC, AC Jt Joint L Grade II Body Position Hooklying Comments breath MWM: gentle mobility recoil follow inhale/exhale Taping Ktape Body Location L shld/clavicle Treatment Focus decrease anterior shld pain, support prox clavicle stab & scapular complex Type of Tape Ktape Comments 1. L sternum over prox 1/3 clavicle to distal platismus - barely fiber stretch 2. V: anterolateral L humeral head medially split to mid inferior clavicle and mid pec major- 15% stretch 3. posterolateral L humerus diagonal along low trap- 25 % stretch Discussed can remove if adverse affect skin irritation, redness/tingling or pulls to much forward of ok then can keep on 2 days up to 4 days and careful removal not cause abrasion, applied to support clavicle stability but allow mobililty while incorporating scap retraction /depresssion awareness. Self-Care/Home Management Treatment Education Patient Education Body Mechanics,Home Exercise Program,Joint Protection, Pain Management,Posture,Safety Caregiver Education Education anatomy, joint wtih mechanics, support pillows needed SL/hooklying, trial Ktaping if supportive and provided mobility decreased pain. Physical Therapy Assessment Goals Four Impairment difficulty turning head sufficient for safe driving Alf Goal (LTG) Patient will demonstrate full active cervical rotation to allow her to turn her head for safe driving LTG Duration 04/17/25 Three Impairment unable to exercise Alf Goal (LTG) Patient will be able to resume prior exercise activities without an increase in pain and be able to demonstrate all HEP ex without cues for technique LTG Duration 04/17/25 Two Impairment Quickdash disability Index score 66% Short Term Goal (STG Improve Quickdash disability Index score to no greater ) than 50% as measure of improved left UE function STG Duration 03/01/25 Alf Goal (LTG) Improve Quickdash disability Index score to no greater than 20% as measure of improved left UE function LTG Duration 04/17/25 [employer] pain with reaching overhead, behind back, across her body, & lift > 2# Alf Goal (LTG) Patient will be able to reach overhead, behind her back , across her body, and be able to lift her children with no more than 2/10 pain. LTG Duration 04/17/25 Assessment Summary Assessment Pt improved breath less sharp and CS rotation and slight improvement in L arm. Educational cues for slow controlled breath and CS AROM for jt mobility allowance painfree range. Cues for chin tuck and scap retraction slow and painfree allowance. Good feedback response to Ktaping over clavicle, anterior L shld and posterior L shld for support and encourage postural alignment. Physical Therapy Plan Frequency and Duration Frequency of 2x/Week Treatment Duration of 12 treatment (weeks) Plan of Care Start 01/15/25 Date Plan of Care End 04/17/25 Date Therapeutic Interventions Therapeutic Home Exercise Program,Manual Therapy,Patient/Caregiver Interventions Education,Self-Care/Home Management,Soft Tissue Mobilization,Taping,Therapeutic Activities,Therapeutic Exercises Modalities Cold Pack/Ice Massage,Electric Stimulation,Hot Packs, Infrared Therapy,Iontophoresis,Ultrasound Next Visit Focus/Plan Next Note Type Treatment Note Next Visit Plan Assess skin response to K-tape and barrington to gentle HEP. Review HEP, gentle STM, modalities PRN.
--- NOTE | 2025-02-07 16:11 | PT.OTN ---
Current Diagnoses Pain in left shoulder (02/07/25) Weakness (02/07/25) Physical Therapy Treatment Note PT OP: Cervical/Upper Extremity Start: 01/15/25 13:37 Freq: Status: Active Protocol: Document 02/07/25 14:32 AB (Rec: 02/07/25 16:11 AB [id number]) Out-Patient Physical Therapy Visit Information Visit Information Visit Type Treatment Note Visit Start Time 14:37 Visit Stop Time 15:19 Visit Number 3 Number of SEMICONDUCTOR WAFERS TESTER Visits 2 Progress Note Due 02/14/25 OP-PT Subjective Patient Comments Patient Comments Patient reports she is the same and came down with a hard cough which aggravated her neck and L UE. Patient reports she is still battling GI issues and pain in chest. Therapeutic Exercises Supine Exercises Cervical Rotation Supine Exercise Name on occipital float Side bilateral Resistance AROM Reps/Minutes 2-3 min Comments Verbal cues to perform in pain free range Sitting Exercises Neck stretching Sitting Exercise UT stretch with AROM CS rotation Name Reps/Minutes 60 sec with rot X 10 R not barrington L reports sharp shooting pain down L UE Comments Verbal cues Standing Exercises deep neck flexor isomet reactive Reps/Minutes X2 Comments Unable to use L UE to perform Manual Therapy Treatment Consent Patient gave verbal Yes consent for manual treatment Soft Tissue Mobilization Neck Body Location UT, levat scap, scalenes at lat clavicle, B Pec Mobilization Type Cross-Friction,Myofascial Release,Rolling,Sustained Pressure Intensity/Depth Moderate Body Position Hooklying Comments and seated, also superficial Joint Mobilizations L scapula Body Position Sidelying Reps/Duration X 10 into dep and add grade III Physical Therapy Assessment Goals Four Impairment difficulty turning head sufficient for safe driving Snf Goal (LTG) Patient will demonstrate full active cervical rotation to allow her to turn her head for safe driving LTG Duration 04/17/25 Three Impairment unable to exercise Needle Maker Goal (LTG) Patient will be able to resume prior exercise activities without an increase in pain and be able to demonstrate all HEP ex without cues for technique LTG Duration 04/17/25 Two Impairment Quickdash disability Index score 66% Short Term Goal (STG Improve Quickdash disability Index score to no greater ) than 50% as measure of improved left UE function STG Duration 03/01/25 Snf Goal (LTG) Improve Quickdash disability Index score to no greater than 20% as measure of improved left UE function LTG Duration 04/17/25 One [employer] pain with reaching overhead, behind back, across her body, & lift > 2# Snf Goal (LTG) Patient will be able to reach overhead, behind her back , across her body, and be able to lift her children with no more than 2/10 pain. LTG Duration 04/17/25 Assessment Summary Assessment Visible increase in AROM CS rotation end of session. Exercises limited by L UE radiating pain. Physical Therapy Plan Frequency and Duration Frequency of 2x/Week Treatment Duration of 12 treatment (weeks) Plan of Care Start 01/15/25 Date Plan of Care End 04/17/25 Date Next Visit Focus/Plan Next Note Type Treatment Note Next Visit Plan Assess skin response to K-tape and barrington to gentle HEP. Review HEP, gentle STM, modalities PRN.
--- NOTE | 2025-02-12 16:23 | PT.OTN ---
Current Diagnoses Pain in left shoulder (02/12/25) Weakness (02/12/25) Physical Therapy Treatment Note PT OP: Cervical/Upper Extremity Start: 01/15/25 13:37 Freq: Status: Active Protocol: Document 02/12/25 15:15 SAK (Rec: 02/12/25 16:23 SAK Laptop) Out-Patient Physical Therapy Visit Information Visit Information Visit Type Treatment Note Visit Note pt 14 min late Visit Start Time 15:29 Visit Stop Time 15:13 Visit Number 4 Number of VAULT TELLER Visits 0 OP-PT Subjective Patient Comments Patient Comments Thinks ROM in neck a little better. KT tape helpful, applied self 2 days ago. Trying to be a little more physically active, driving more and activity around the home. Compliant to HEP. Working on breathing, reports realizing how weak she is. Therapeutic Exercises Supine Exercises posture press Reps/Minutes 5x5 TrA and ball sque Reps/Minutes 10x Comments to activate foundational core muscles, to support kinetic chain deep breathing Reps/Minutes 3 min Comments cues for abdominal breathing, lateral ribcage br Cervical Rotation Supine Exercise Name on occipital float, then slider sheet on pillow Side bilateral Resistance AROM Reps/Minutes 2-3 min Comments Verbal cues to perform in pain free range Manual Therapy Treatment Consent Patient gave verbal Yes consent for manual treatment Soft Tissue Mobilization Neck Body Location UT, levat scap, scalenes at lat clavicle, B Pec Mobilization Type Cross-Friction,Myofascial Release,Rolling,Sustained Pressure Intensity/Depth Moderate Body Position Hooklying Comments and seated, also superficial Ribcage & intercostals Body Location L 3-9 Mobilization Type Myofascial Release,Rolling,Sustained Pressure,Other Intensity/Depth extremely light Body Position modified SL support pillow at back/pillows between knees Comments very light STMs, hold MWM with breath Joint Mobilizations L scapula Body Position Sidelying Reps/Duration X 10 into dep and add grade III SC, AC Jt Joint L Grade II Body Position Hooklying Comments breath MWM: gentle mobility recoil follow inhale/exhale Taping Ktape Body Location L shld/clavicle Treatment Focus decrease anterior shld pain, support prox clavicle stab & scapular complex Type of Tape Ktape Comments 1. L sternum over prox 1/3 clavicle to distal platismus - barely fiber stretch 2. V: anterolateral L humeral head medially split to mid inferior clavicle and mid pec major- 15% stretch 3. posterolateral L humerus diagonal along low trap- 25 % stretch Discussed can remove if adverse affect skin irritation, redness/tingling or pulls to much forward of ok then can keep on 2 days up to 4 days and careful removal not cause abrasion, applied to support clavicle stability but allow mobililty while incorporating scap retraction /depresssion awareness. Self-Care/Home Management Treatment Education Patient Education Body Mechanics,Home Exercise Program,Joint Protection, Pain Management,Posture,Safety Other Education updated written HEP Physical Therapy Assessment Goals Four Impairment difficulty turning head sufficient for safe driving Sewer Repairer Goal (LTG) Patient will demonstrate full active cervical rotation to allow her to turn her head for safe driving LTG Duration 04/17/25 Three Impairment unable to exercise Sewer Repairer Goal (LTG) Patient will be able to resume prior exercise activities without an increase in pain and be able to demonstrate all HEP ex without cues for technique LTG Duration 04/17/25 Two Impairment Quickdash disability Index score 66% Short Term Goal (STG Improve Quickdash disability Index score to no greater ) than 50% as measure of improved left UE function STG Duration 03/01/25 Sewer Repairer Goal (LTG) Improve Quickdash disability Index score to no greater than 20% as measure of improved left UE function LTG Duration 04/17/25 One [employer] pain with reaching overhead, behind back, across her body, & lift > 2# Sewer Repairer Goal (LTG) Patient will be able to reach overhead, behind her back , across her body, and be able to lift her children with no more than 2/10 pain. LTG Duration 04/17/25 Assessment Summary Assessment Pt. c/s rotation improved, able to drive to PT today, has gently increased activity at home. KT tape self at home 2 days ago, feels helpful. States still feels click in shoulder with assisted flexion with some pain Physical Therapy Plan Frequency and Duration Frequency of 2x/Week Treatment Duration of 12 treatment (weeks) Plan of Care Start 01/15/25 Date Plan of Care End 04/17/25 Date Therapeutic Interventions Therapeutic Home Exercise Program,Manual Therapy,Patient/Caregiver Interventions Education,Self-Care/Home Management,Soft Tissue Mobilization,Taping,Therapeutic Activities,Therapeutic Exercises Modalities Cold Pack/Ice Massage,Electric Stimulation,Hot Packs, Infrared Therapy,Iontophoresis,Ultrasound Next Visit Focus/Plan Next Note Type Treatment Note Next Visit Plan Continue gentle STM, ther ex, postural correction. Modalities PRN.
--- NOTE | 2025-02-15 09:56 | PT-OP ANOTE ---
Pt did not show for appt today. AWNING MAKER AND INSTALLER called pt, she appologized is home with sick kids and unable to attend. Discussed with pt to please call and cancel as soon as know unable to attend, today will be considered a NS due to not calling or showing up. Pt verbalized understanding and really wants to attend for benefits of PT can help her with her shoulder. Pt verbalized confirmation next appt with PT Pallavi 02/19/25 at 945 am.
--- NOTE | 2025-02-19 16:31 | PT.OTN ---
Addendum entered and electronically signed by Pallavi Shahid, PT 03/19/25 18:00: Note type: progress note, wrong note type selected. Original Note: Current Diagnoses Pain in left shoulder (02/19/25) Weakness (02/19/25) Physical Therapy Treatment Note PT OP: Cervical/Upper Extremity Start: 01/15/25 13:37 Freq: Status: Active Protocol: Document 02/19/25 09:51 SAK (Rec: 02/19/25 10:37 SAK Laptop) Out-Patient Physical Therapy Visit Information Visit Information Visit Type Treatment Note Visit Start Time 09:51 Visit Stop Time 10:30 Visit Number 5 Number of VARNISH DIPPER Visits 0 OP-PT Subjective Patient Comments Patient Comments Letting skin breath from KT tape, still finds helpful. Neck still feels tight. pain 4/10 this am. Doing more around the house, overall noting some improvement. Therapeutic Exercises Supine Exercises posture press Reps/Minutes 5x5 deep breathing Reps/Minutes 3 min Comments cues for abdominal breathing, lateral ribcage br Cervical Rotation Supine Exercise Name slider sheet on pillow Side bilateral Resistance AROM Reps/Minutes 2-3 min Comments Verbal cues to perform in pain free range Standing Exercises anjel Standing Exercise shoulder anjel all motions HEP Name Reps/Minutes verbal review Manual Therapy Treatment Soft Tissue Mobilization Neck Body Location UT, levat scap, scalenes at lat clavicle, B Pec Mobilization Type Cross-Friction,Myofascial Release,Rolling,Sustained Pressure Intensity/Depth Moderate Body Position Hooklying Ribcage & intercostals Body Location T 3-9 Mobilization Type Myofascial Release,Rolling,Sustained Pressure,Other Intensity/Depth light Body Position modified SL support pillow at back/pillows between knees Comments very light STMs, hold MWM with breath Manual Techniques eye gaze technique Reps/Duration 3x ea direction x 2 Comments followed by 5x AROM to side inc rom achieved Self-Care/Home Management Treatment Education Patient Education Body Mechanics,Home Exercise Program,Joint Protection, Pain Management,Posture,Safety Other Education updated written [facility] Physical Therapy Assessment Goals Four Impairment difficulty turning head sufficient for safe driving Chain Machine Operator Goal (LTG) Patient will demonstrate full active cervical rotation to allow her to turn her head for safe driving 02/19/25: improved, patient now driving, supine c/s rotation WNL after manual techniques LTG Duration 04/17/25 Three Impairment unable to exercise Fpc Goal (LTG) Patient will be able to resume prior exercise activities without an increase in pain and be able to demonstrate all HEP ex without cues for technique 02/19/25: mild goal progress, doing more activities around the house, improving HEP performance LTG Duration 04/17/25 Two Impairment Quickdash disability Index score 66% Short Term Goal (STG Improve Quickdash disability Index score to no greater ) than 50% as measure of improved left UE function STG Duration 03/01/25 Fpc Goal (LTG) Improve Quickdash disability Index score to no greater than 20% as measure of improved left UE function LTG Duration 04/17/25 One Impairment Inc pain with reaching overhead, behind back, across her body, & lift > 2# Fpc Goal (LTG) Patient will be able to reach overhead, behind her back , across her body, and be able to lift her children with no more than 2/10 pain. LTG Duration 04/17/25 Assessment Summary Assessment Benefits from use of pulleys, inc left shoulder elevation to 155 deg. c/s ROM supine WNL after eye gaze technique, instructed patient for home. Doing KT tape at home; feels helpful, though letting skin have break today. Reporting barrington mild inc pressure with shoulder anjel ex. Physical Therapy Plan Frequency and Duration Frequency of 2x/Week Treatment Duration of 12 treatment (weeks) Plan of Care Start 01/15/25 Date Plan of Care End 04/17/25 Date Therapeutic Interventions Therapeutic Home Exercise Program,Manual Therapy,Patient/Caregiver Interventions Education,Self-Care/Home Management,Soft Tissue Mobilization,Taping,Therapeutic Activities,Therapeutic Exercises Modalities Cold Pack/Ice Massage,Electric Stimulation,Hot Packs, Infrared Therapy,Iontophoresis,Ultrasound Next Visit Focus/Plan Next Note Type Treatment Note Next Visit Plan Increase exercise component as tolerated for neck and shoulder ROM and strengthening. Manual therapy and modalities PRN pain.
--- NOTE | 2025-02-22 10:25 | PT.OTN ---
Current Diagnoses Pain in left shoulder (02/22/25) Weakness (02/22/25) Physical Therapy Treatment Note PT OP: Cervical/Upper Extremity Start: 01/15/25 13:37 Freq: Status: Active Protocol: Document 02/22/25 09:53 SP (Rec: 02/22/25 10:41 SP [id number]) Out-Patient Physical Therapy Visit Information Visit Information Visit Type Treatment Note Visit Note ELVA Alfredo assisted with questionaire feedback goal assessment with patient permission while under direct instruction of APPRENTICE Mallory. Visit Start Time 09:53 Visit Stop Time 10:25 Visit Number 6 Number of APPRENTICE Visits 1 Progress Note Due 02/14/25 OP-PT Subjective Patient Comments Patient Comments Pt arrives demosntrating CS retraction and scapulathoracis guarding with trunk rotation when turning to answer APPRENTICE questions. She stated has a headache and hoping to work on manual to give relief. She report has telehealth at 1030 so needs be done at 1025. Patient Questionnaires Quick Dash- Upper Extremity Quick Dash UE Score 51 Quick Dash UE 40 to 59% Impaired (Score 40-59) Impairment Therapeutic Exercises Supine Exercises deep breathing Comments cues for abdominal breathing, lateral ribcage breath Sitting Exercises Chin tuck & CS Rotation Reps/Minutes 2 reps Comments post manual, cued slow fluid movement Neck stretching Sitting Exercise verbal review Name scap retraction Sitting Exercise sitting Name Comments with breath to improved clavicle and ribcage mobility with good spinal alig Manual Therapy Treatment Consent Patient gave verbal Yes consent for manual treatment Soft Tissue Mobilization Head Body Location Temporalis, Frontalis, DIRECTOR OF CARDIOPULMONARY SERVICES: Frontal, temporal (ear pull ), sphenoid decompr. Mobilization Type Cross-Friction,Rolling,Sustained Pressure,Other Intensity/Depth Superficial Body Position Hooklying Comments very light cranial decompression with reports decreased headache Shoulders Body Location B pec Mobilization Type Myofascial Release,Oscillations Intensity/Depth Superficial Comments sensitive to pressure, gentle STMs with education on self performance Neck Body Location SOR, [place], suboccipitals, Mobilization Type Myofascial Release,Rolling Intensity/Depth Minimal Body Position Hooklying Self-Care/Home Management Treatment Education Patient Education Body Mechanics,Home Exercise Program,Joint Protection, Pain Management,Posture,Safety Other Education education on self STMs, CS traction and rotation and posture to allow improvement in functional mobility with decreased guarding post manual. Physical Therapy Assessment Goals Four Impairment difficulty turning head sufficient for safe driving Family Assessment Worker Goal (LTG) Patient will demonstrate full active cervical rotation to allow her to turn her head for safe driving 02/19/25: improved, patient now driving, supine c/s rotation WNL after manual techniques LTG Duration 04/17/25 Three Impairment unable to exercise Family Assessment Worker Goal (LTG) Patient will be able to resume prior exercise activities without an increase in pain and be able to demonstrate all HEP ex without cues for technique 02/19/25: mild goal progress, doing more activities around the house, improving HEP performance LTG Duration 04/17/25 Two Impairment Quickdash disability Index score 66% Short Term Goal (STG Improve Quickdash disability Index score to no greater ) than 50% as measure of improved left UE function 02/22: 51% STG Duration 03/01/25 Family Assessment Worker Goal (LTG) Improve Quickdash disability Index score to no greater than 20% as measure of improved left UE function LTG Duration 04/17/25 [employer] pain with reaching overhead, behind back, across her body, & lift > 2# Chcf Goal (LTG) Patient will be able to reach overhead, behind her back , across her body, and be able to lift her children with no more than 2/10 pain. LTG Duration 04/17/25 Assessment Summary Assessment Pt responded well to gentle manual to head, neck and pecs with reported decrease in pain from 5/10 to 4/10, improved comfort post manual with implication of headache reduction. Slight improved trunk and CS movement, cued for arm swing leaving. Physical Therapy Plan Frequency and Duration Frequency of 2x/Week Treatment Duration of 12 treatment (weeks) Plan of Care Start 01/15/25 Date Plan of Care End 04/17/25 Date Therapeutic Interventions Therapeutic Home Exercise Program,Manual Therapy,Patient/Caregiver Interventions Education,Self-Care/Home Management,Soft Tissue Mobilization,Taping,Therapeutic Activities,Therapeutic Exercises Modalities Cold Pack/Ice Massage,Electric Stimulation,Hot Packs, Infrared Therapy,Iontophoresis,Ultrasound Next Visit Focus/Plan Next Note Type Treatment Note Next Visit Plan recheck HEP, manual for headache, neck/arm pain comfort . POC: Increase exercise component as tolerated for neck and shoulder ROM and strengthening. Manual therapy and modalities PRN pain.
--- NOTE | 2025-04-11 08:19 | PT.OPDS ---
Current Diagnoses Pain in left shoulder (02/22/25) Weakness (02/22/25) Visit Care Team Role Provider Type JANE Rey Attending Provider Advanced [employer] Family Provider Primary Care Provider Referring Provider Specialty: Family Practice Address: [address] [place] [address], [id number] Phone: Fax: Email: [email or web address] Visit Number Visit Number 6 Discharge Summary PT OP: Cervical/Upper Extremity Start: 01/15/25 13:37 Freq: Status: Active Protocol: Document 04/11/25 08:18 SAK (Rec: 04/11/25 08:18 SAK Laptop) Out-Patient Physical Therapy Visit Information Visit Information Visit Type Discharge Summary Physical Therapy Plan Discharge Physical Therapy Discharge Reasons No Longer Attending PT Discharge Comments multiple cancellations/no shows, no further PT appointments scheduled
== END 2025-04-11 09:53 | disposition home or self-care (01) ==
LOC: PHYS 09:45
PROVIDERS: Family Provider Nurse Practitioner Family; PCP Nurse Practitioner Family; Referring Provider Nurse Practitioner Family; Visit Provider Nurse Practitioner Family
DX: M25.512 Pain in left shoulder (principal); R53.1 Weakness
CPT/HCPCS: 97014; 97110; 97140; 97162; 97535; G0283